=== PATIENT | male | born 1965 | race Caucasian/White ===

== ENCOUNTER 2019-04-12 21:33 | Emergency (ER) | payer BC, SELFPAY ==
[2019-04-12 21:39] VITALS: BP 134/74; PULSE 80; RESP 16; TEMP 36.8; O2SAT 97
[2019-04-12 21:43] VITALS: RESP 16
--- NOTE | 2019-04-12 21:59 | ED.GENADUL_ITS ---
Discharge Plan Disposition Patient Disposition: HOME Condition: Good Discharge Details Chief Complaint: Anxiety Clinical Impression: Insomnia Primary Care Provider: Anaid Johnson ED Provider: Rufus Olson Home Meds and New Rx's Prescriptions: New zolpidem [Ambien] 10 mg tablet 10 mg PO QHS PRN (Reason: insomnia) Qty: 7 RF: 0 Discharge Instructions Instructions: Insomnia (ED) Additional Instructions: follow up with your primary care provider's office within a week try to avoid marijuana or alcohol and other drugs as these can disrupt sleep Medical Decision Making 53 yo male who has a hx of insomnia in the past comes in with complaint of can't sleep. He states yesterday he ate a marijuana brownie which is out of the normal for him, doesn't usually use alcohol or drugs. He was unable to sleep last night and still couldn't tonight despite diphenydramine, felt anxious so came here. He is in no distress on exam, does appear tired but no focal motor deficits. He denies si/hi and has no passing thoughts to suggest thoughts of wanting to harm himself. Has normal neuro exam and no acute complaints other than he can't sleep so feel he doesn't require acute workup for his complaint. Will provide zolpidem and have him f/u with pcp for continued management Differential Diagnosis insomnia, anxiety HPI General Mode of arrival: ambulatory . Date/Time Provider Initiated Documentation: 04/12/19 21:34 . Limitations to Documentation: no limitations . Information obtained by: patient . History of Present Illness 53 year old M presents to the emergency department with the chief complaint of can't sleep, described as moderate, and it has been constant. No relieving factors improve symptom(s), No exacerbating factors reported . Patient did receive the following treatments prior to arrival, none Related Data Home Medications Medication Instructions Recorded Confirmed zolpidem [Ambien] 10 mg PO QHS PRN #7 tab 04/12/19 Previous Rx's Medication Instructions Recorded zolpidem [Ambien] 10 mg PO QHS PRN #7 tab 04/12/19 Allergies Allergy/AdvReac Type Severity Reaction Status Date / Time No Known Allergies Allergy Unverified 04/12/19 21:46 General Stated Complaint: Anxiety MIC: 4 Review of Systems Review of Systems All systems reviewed & are unremarkable except as noted in HPI and below Constitutional Denies chills, Denies fever(s) and Denies weakness Cardiovascular Denies chest pain and Denies dyspnea Respiratory Denies cough and Denies dyspnea Gastrointestinal Denies abdominal pain, Denies nausea and Denies vomiting Musculoskeletal Denies joint swelling Neurologic Denies weakness PFSH Social History Smoking/Tobacco Use Status: Never Drug use: Never Do you feel safe at home: Yes Do you feel safe in your relationship?: Yes Exam Const General: no acute distress Orientation: alert HENMT Head: normal to inspection Ears: external ears normal General nose exam: external nose normal Mouth: moist mucous membranes Eyes General: appearance normal, both eyes and all related structures Neck Neck: normal visual inspection Resp Effort & Inspection: normal respiratory effort and able to speak in complete sentences Cardio Rate: regular rate Skin General skin exam: no rashes or lesions noted Neuro General: alert and oriented x3 Extrem General: normal to inspection Psych Mental Status: mental status grossly normal Course Vital Signs Temperature 36.8 C 04/12/19 21:39 Pulse 80 04/12/19 21:39 Respiratory Rate 16 04/12/19 21:39 Blood Pressure 134/74 04/12/19 21:39 Pulse Oximetry 97 04/12/19 21:39 Temperature 36.8 C 04/12/19 21:39 Temperature Source Temporal Artery Scan 04/12/19 21:39 Pulse 80 04/12/19 21:39 Respiratory Rate 16 04/12/19 21:43 Respiratory Effort 04/12/19 21:43 Respiratory Depth Normal 04/12/19 21:43 Respiratory Pattern Normal 04/12/19 21:43 Blood Pressure 134/74 04/12/19 21:39 Pulse Oximetry 97 04/12/19 21:39 Oxygen Delivery Method Room Air 04/12/19 21:39 Oxygen Flow Rate 0 04/12/19 21:39 Pain Level 0 04/12/19 21:39
[2019-04-12] MEDS: Zolpidem 10 MG TAB PO (22:13)
--- NOTE | 2019-04-13 07:00 | NUR.NOTE ---
Referral faxed to [facility] Dr Johnson.Nursing Note:
== END 2019-04-12 22:15 | disposition home or self-care (01) ==
LOC: ER 22:14
PROVIDERS: Emergency Provider Emergency Medicine; PCP Family Medicine
DX: G47.00 Insomnia, unspecified (principal); T40.7X5A Adverse effect of cannabis (derivatives), initial encounter
CPT/HCPCS: 99283

== ENCOUNTER 2021-05-12 15:35 | Outpatient (REF) | payer BC, SELFPAY ==
[2021-05-12 22:04] LABS: ALT 74 U/L (16-63); AST 107 U/L (15-37); Albumin 3.8 g/dL (3.4-5.0); Alkaline Phosphatase 76 U/L (46-116); Anion Gap 4.4 mmol/L (3-11); BUN 9 mg/dL (7-18); CO2 32.6 mmol/L (21.0-32.0); Calcium 8.9 mg/dL (8.5-10.1); Calculated LDL 88 mg/dL (<100); Chloride 100 mmol/L (98-107); Cholesterol 143 mg/dL (<200); Glucose 109 mg/dL (74-106); HDL Cholesterol 43 mg/dL (40-60); Potassium 4.1 mmol/L (3.5-5.1); Sodium 137 mmol/L (136-145); Total Protein 8.4 g/dL (6.4-8.2); Triglyceride 61 mg/dL (<150)
[2021-05-12 22:34] LABS: FREE T4 0.95 ng/dL (0.76-1.46)
== END 2021-05-12 15:36 | disposition home or self-care (01) ==
LOC: NCHCN 15:35
PROVIDERS: PCP Family Medicine; Visit Provider Family Medicine
DX: G47.00 Insomnia, unspecified (principal); E03.9 Hypothyroidism, unspecified
CPT/HCPCS: 80053; 80061; 84439; 84443

== ENCOUNTER 2021-12-15 15:09 | Outpatient (REF) | payer BC, SELFPAY ==
[2021-12-15 14:16] LABS: ALT 27 U/L (16-63); AST 47 U/L (15-37); Albumin 3.5 g/dL (3.4-5.0); Alkaline Phosphatase 77 U/L (46-116); Anion Gap 6.9 mmol/L (3-11); BUN 7 mg/dL (7-18); Bilirubin, Total 0.8 mg/dL (0.2-1.0); CO2 30.1 mmol/L (21.0-32.0); Calcium 9.1 mg/dL (8.5-10.1); Chloride 100 mmol/L (98-107); Glucose 93 mg/dL (74-106); Potassium 3.9 mmol/L (3.5-5.1); Sodium 137 mmol/L (136-145)
[2021-12-15 15:28] LABS: Abs Immature Grans 0.01 10^3/uL (0.0-0.06); Absolute Basophil Count 0.02 10^3/uL (0.0-0.2); Absolute Eosinophil Count 0.13 10^3/uL (0.0-0.7); Absolute Lymphocyte Count 2.52 10^3/uL (1.2-3.4); Absolute Monocyte Count 0.43 10^3/uL (0.1-0.8); Absolute Neutrophil Count 1.91 10^3/uL (1.2-6.7); Basophils % 0.4; Eosinophils % 2.6; HCT 30.9 % (40.0-50.0); HGB 10.7 g/dL (13.5-17.5); Immature Grans % 0.2; Lymphocytes % 50.2; MCH 32.2 pg (27.0-33.0); MCHC 34.6 % (32.0-36.0); MCV 93 fL (80-95); MPV 10.2 fL (8.0-11.0); Monocytes % 8.6; Platelet Count 245 10^3/uL (130-400); RBC 3.32 10^6/uL (4.36-5.78); RDW 15.7 % (11.8-14.1); RDW-SD 45.5 fL; WBC 5.02 10^3/uL (4.4-10.8)
== END 2021-12-15 15:10 | disposition home or self-care (01) ==
LOC: NCHCN 15:09
PROVIDERS: PCP Family Medicine; Visit Provider Family Medicine
DX: R22.32 Localized swelling, mass and lump, left upper limb (principal)
CPT/HCPCS: 80053; 85025

== ENCOUNTER 2021-12-22 10:49 | Outpatient (CLI) | payer BC, SELFPAY ==
[2021-12-22 11:08] LABS: Source Nasal/Nares
[2021-12-22 13:14] LABS: COVID-19 PCR Negative (Negative)
== END 2021-12-22 10:50 | disposition home or self-care (01) ==
LOC: LBO 10:51
PROVIDERS: PCP Family Medicine; Visit Provider Surgery
DX: Z20.822 Contact with and (suspected) exposure to COVID-19 (principal); Z01.818 Encounter for other preprocedural examination
CPT/HCPCS: 87635

== ENCOUNTER 2021-12-25 06:10 | Day surgery (SDC) | payer BC, SELFPAY ==
--- NOTE | 2021-12-25 06:22 | W.PM.OP ---
Date of service: 12/25/21 Operative Note Operative Note DATE OF PROCEDURE: 12/25/21 PRE-OP DIAGNOSIS: Lymphadenopathy POST-OP DIAGNOSIS: same PROCEDURE: Excisional biopsy of left neck lymphnodes SURGEON: Annette Wiggins Refer to Anesthesia Record PATHOLOGY: other (lymphnodes) COMPLICATIONS: None Patient was transported to: same day Patient's condition: stable Indications: Mr. Chapin is a pleasant 56 year old male who is here with 1 month of lymphadenopathy of the left axilla, left cervical area and left supraclavicular area.? We reviewed the differential.? We discussed doing an excisional biopsy to look malignancy vs infection.? I do suspect that he either has lymphoma or he has another cancer (lung) with mets.? I described the surgery and the risks and benefits. We will add him on for Saturday.? Spoke to Dr. Denton so he is aware. Risks, benefits, complications were reviewed with the patient.? Complications include but are not limited to bleeding, infection, injury to adjacent structures, wound dehiscence and adverse reaction to the medications.? Questions were entertained and answered to his satisfaction and he wished to proceed.? No guarantees were given or implied.? Because all be working on his neck I will test him for COVID so he can be sedated plus minus LMA. Excisional lymph node biopsy of left neck Procedure Description: After informed consent was obtained the patient was taken to the procedure room and placed in a supine position. Monitors were applied and a timeout was done. The patient's name, date of , allergies to medications, procedure to be done and site were reviewed. Fire risk was assessed. Next the patient was sedated. Once sedated and comfortable the patient's neck on the left side and shoulder was prepped and draped in a sterile surgical fashion. Lymph nodes were palpated in the supraclavicular area. Quarter percent bupivacaine was then injected into the dermis and subcutaneous tissue. An incision was made with a 15 blade. Dissection was then done bluntly with hemostats down to the scalene muscle. The hemostat was placed underneath the scalene muscle and using vascular clips the muscle was on 2 sides and transected in between the clips with scissors. This allowed me to identify one of the large lymph nodes. I then gently dissected with my finger around the lymph node. The vasculature again was clipped on either side of the lymph node. Once the vessels were clipped the lymph node was removed without difficulty. The lymph node was removed from the operating field. Next the wound was irrigated. No bleeding was identified. The subcutaneous tissue was then reapproximated with 3-0 Vicryl interrupted sutures. The dermis was closed with 4-0 Vicryl running suture. The skin was cleaned and dried and skin affix was applied. The drapes were removed and the patient was woken up placed on a stretcher and taken back to same-day surgery in stable condition. The patient tolerated the procedure well and there were no immediate complications. Needle and sponge counts were correct at the end of the case. The lymph node was cut longitudinally. The lymph nodes touched on 5 slides. A small piece was placed into RPMI fluid and the rest was placed in formalin.
--- NOTE | 2021-12-25 06:24 | PDOC.DSDIS_ITS ---
Discharge Plan Disposition Patient Disposition: HOME Condition: Good Discharge Details Reason For Visit: Lymphadenopathy Attending Provider: Annette Wiggins Primary Care Provider: Anaid Jhonson Home Meds and New Rx's Prescriptions: Continued multivitamin Tablet 1 tab PO DAILY 0RF Discharge Instructions Additional Instructions: Activity at Home after surgery: 1. As tolerated Diet, Nutrition, & wound healin. As tolerated Pain Medications: 1. Tylenol 650mg every 6 hours as needed and Ibuprofen 600 mg every 6 hours as needed. You may alternate between the 2 medications every 3 hours For Constipation: 1. Take Milk of Magnesia or MiraLax as needed for constipation Other: 1. You may shower daily. Do not scrub the incisions 2. Do not soak the incisions for 1 week 3. You may alternate ice and heat as needed for pain and swelling Wound Care: 1. Keep the incisions clean and dry Please call our office if you develop: 1. Fevers >101.5 2. Nausea or Vomiting 3. Worsening pain 4. Redness and thick discharge from the wounds If after hours please call the Hospital at and ask to speak to the on-call surgeon Referrals: Annette Wiggins MD [ [facility] STAFF PHYSICIAN] - 01/02/22 10:00 am Activity:: Activity as Tolerated Diet:: As Tolerated Discharge Orders Discharge Orders: Discharge Order (Routine); Ordered 12/25/21 Ordered By: Annette Wiggins
[2021-12-25 06:32] VITALS: BP 118/76; PULSE 86; RESP 18; TEMP 36.5; O2SAT 99
[2021-12-25] MEDS: Lactated Ringers 1,000 ML 80 ML IV (07:02)
--- NOTE | 2021-12-25 07:05 | ANES.PREOP_ITS ---
General Info Date of Service Date Performed: 12/25/21 Height: 5 ft 9 in Weight: 77.2 kg Body Mass Index (BMI): 25.1 Surgical Procedure: Operation Date: 12/25/21 07:40 Proposed Procedure Side Surgeon p Excisional Biopsy Lymph Node Left Annette Wiggins MD Meds Allergies and Home Medications Allergies Allergy/AdvReac Type Severity Reaction Status Date / Time No Known Allergies Allergy Unverified 12/22/21 14:06 Home Medication Medication Instructions Recorded multivitamin 1 tab PO DAILY 12/22/21 Current Visit Medications: Current Medications Generic Name Dose Route Start Last Admin Trade Name Freq PRN Reason Stop Dose Admin Ringer's Solution 1,000 mls @ 80 mls/hr 12/25/21 06:00 12/25/21 07:02 IV 01/21/22 23:59 80 mls/hr INFUSION YURI Administration Ondansetron HCl 4 mg/ Sodium 52 mls @ 200 mls/hr 12/25/21 06:26 Chloride IVPB Q6H PRN PRN IV Miscellaneous Supplies 1 each 12/25/21 06:00 Iv Access IV 01/21/22 23:59 DIRECTED YURI Sodium Chloride 0 ml 12/25/21 06:00 Normal Saline Flush 10 Ml Syr IV 01/21/22 23:59 PRN PRN Sodium Chloride 0 ml 12/25/21 06:00 Normal Saline 10 Ml Vial IJ 01/21/22 23:59 DIRECTED PRN Sterile Water 0 ml 12/25/21 06:00 Water,Injection,Sterile 10 Ml Vial IJ 01/21/22 23:59 DIRECTED PRN Tramadol HCl 50 mg 12/25/21 06:26 Tramadol 50 Mg Tab PO Q6H PRN PRN Pain PFSH Active Problems Active Problems: Problem Status Onset Code Mass of left axilla R22.32 Lymphadenopathy, generalized R59.1 Medical History Medical History Anxiety Flat feet History of shingles 2 years ago Hx of fracture of ankle bilateral reported by patient Insomnia Schizoaffective disorder Surgical History Surgical History (Updated 12/25/21 @ 06:41 by Jillian Fields) History of open reduction and internal fixation (ORIF) procedure pt. thinks it was his L ankle Tobacco Smoking/Tobacco Use Status: Former Tobacco Use Alcohol Alcohol Intake: never Substance Use Substance use: Never Substance use type: does not use Details: t-1: wine, 6 oz Vital Signs and Lab Results Vital Signs Most Recent Vital Signs in EMR: Most Recent Vital Signs Temp Pulse Resp BP Pulse Ox 36.5 C 86 18 118/76 99 12/25/21 06:32 12/25/21 06:32 12/25/21 06:32 12/25/21 06:32 12/25/21 06:32 Lab Results Blood Type / Crossmatch: No Data to Display Complete Blood Count: White Blood Count 5.02 10^3/uL (4.4-10.8) 12/15/21 10:35 12/15/21 Red Blood Count 3.32 10^6/uL (4.36-5.78) L 12/15/21 10:35 12/15/21 Hemoglobin 10.7 g/dL (13.5-17.5) L 12/15/21 10:35 12/15/21 Hematocrit 30.9 % (40.0-50.0) L 12/15/21 10:35 12/15/21 Platelet Count 245 10^3/uL (130-400) 12/15/21 10:35 12/15/21 Complete Metabolic Panel: 2 Sodium Level 137 mmol/L (136-145) 12/15/21 10:35 12/15/21 Potassium Level 3.9 mmol/L (3.5-5.1) 12/15/21 10:35 12/15/21 Chloride Level 100 mmol/L (98-107) 12/15/21 10:35 12/15/21 Carbon Dioxide Level 30.1 mmol/L (21.0-32.0) 12/15/21 10:35 12/15/21 Blood Urea Nitrogen 7 mg/dL (7-18) 12/15/21 10:35 12/15/21 Creatinine 1.0 mg/dL (0.70-1.30) 12/15/21 10:35 12/15/21 Estimated GFR/1.73 m2 >= 60.00 (mL/min/1.73m2) 12/15/21 10:35 12/15/21 Calcium Level 9.1 mg/dL (8.5-10.1) 12/15/21 10:35 12/15/21 Albumin 3.5 g/dL (3.4-5.0) 12/15/21 10:35 12/15/21 Glucose Level 93 mg/dL (74-106) 12/15/21 10:35 12/15/21 Liver Function Panel: Alanine Aminotransferase (ALT/SGPT) 27 U/L (16-63) 12/15/21 10:35 12/15/21 Aspartate Amino Transf (AST/SGOT) 47 U/L (15-37) H 12/15/21 10:35 12/15/21 Coagulation Panel: No Data to Display Cardiac Panel: No Data to Display Arterial Blood Gas: No Data to Display Venous Blood Gas: No Data to Display Pancreas Panel: No Data to Display Thyroid Panel: No Data to Display Infectious Disease: Coronavirus (COVID-19)(PCR) Negative (Negative) 12/22/21 10:24 12/22/21 Coronavirus 2019 Source Nasal/Nares 12/22/21 10:24 12/22/21 Blood Cultures: No Data to Display Toxicology Panel: No Data to Display Anesthesia Assessment and Plan Anesthesia History Personal History: No History of Anesthesia Complications Family History: No Family History of Anesthesia Complications Exercise Tolerance Exercise Tolerance: Metabolic Equivalents>4 Pertinent Negatives Pertinent Negatives: No Symptoms of GERD, No Major Cardiovascular Symptoms or Complaints, No Major Pulmonary Symptoms or Complaints and No History of CVA/TIA Cardiac & Pulmonary Exam Cardiac Exam: Normal S1/S2 Heart Sounds Pulmonary Exam: Clear Bilateral Breath Sounds Implantable Cardiac Device Does patient have a Pacemaker or an ICD?: No Airway Exam Known Difficult Airway: No Mallampati Class: 1 Mouth Opening: Normal (> 3cm) Thyromental Distance: Greater than 3 cm Facial Hair: Full Frost Neck Range of Motion: Full ROM Neck Circumference: Normal Teeth Condition: Normal Dentition ASA Classification ASA Score: ASA 2 Emergency Case?: No NPO Status NPO Status: NPO Clears >2 hours, Solids >8 hours Anesthesia Plan Resuscitation Status: Full Code Anesthesia Technique: General Anesthesia Airway Planned: Natural Airway Monitors Used: Standard Monitors
[2021-12-25 07:10] VITALS: BMI 25.1
--- NOTE | 2021-12-25 07:58 | LYM_PTH ---
PATIENT: Billy Chapin LOC: [facility] U#:[id number] AGE/SX: 56/M ROOM: RE12/25/[address]: Annette Wiggins MD : 1965 BED: DIS: 12/25/2021 SPEC #: [id number] RECD: 12/25/21 12:43 STATUS: CRISTIANE REQ #: [id number] JULIAN: 12/25/21 07:[address]: Annette Wiggins DEPT: Surgical Specimen RECD BY: Shauna Mclaughlin ENTERED: 12/25/21 12:45 SP TYPE: LYM OTHR DR: Anaid Johnson Tissues: 1 - LYMPH NODE BIOPSY 2 - FLOW CYTOMETRY NODE/TISSUE Procedures: GROSS AND MICRO LEVEL 4 IMMUNOPEROXIDASE STAIN Single Probe In Situ Hybridization MIB-1 IHC Semi Quantative % B-Cell Lymphoma, FISH, Tissue BLYM, Additional Probe MYC IHC Stain FLOW CYTOMETRY LYMPHOMA PNL Comments: [id number] (FLOW CYTOMETRY - [id number]) (CYTOGENETICS - [id number] INSUFFIENT FOR ANALYSIS)
[2021-12-25 08:11] VITALS: BP 118/77; PULSE 80; RESP 14; TEMP 36.7; O2SAT 98
--- NOTE | 2021-12-25 08:13 | W.ANESPOSTOP ---
Postoperative Evaluation Date, Time and Location Date Performed: 12/25/21 Time Performed: 08:14 Patient Location: Day Surgery Unit Vital Signs Most Recent Imported Vital Signs: Most Recent Vital Signs Temp Pulse Resp BP Pulse Ox 36.5 C 86 18 118/76 99 12/25/21 06:32 12/25/21 06:32 12/25/21 06:32 12/25/21 06:32 12/25/21 06:32 Most Recent Manually Entered Vital Signs: Adult Blood Pressure: 118/77 Heart Rate: 81 Respirations: 10 Oxygen Saturation (%): 97 Temperature (C): 36.3 C Pain Score (0-10 Scale): 0 Pain Score Most Recent Pain Score: Most Recent Pain Score Pain Level 0 12/25/21 06:32 Assessment Mental Status: Awake (Alert & Oriented to Patient Baseline) Airway and Respiratory Function: Patent airway with normal (patient baseline) respiratory exam Cardiovascular Function: Hemodynamically Stable Hydration Status: Adequately Hydrated Nausea & Vomiting: No Nausea or Vomiting Pain: Pt. Denies Any Pain Peripheral Nerve Block: Patient did not receive a nerve block Teaching Patient Teaching: Discussed Safe Use of Pain Medication Given Recent Anesthesia
[2021-12-25 08:15] VITALS: BP 118/77; PULSE 81; RESP 10; TEMPC 36.3; O2SAT 97
[2021-12-25 08:45] VITALS: BP 126/83; PULSE 89; RESP 16; TEMP 36.4; O2SAT 97
== END 2021-12-25 09:15 | disposition home or self-care (01) ==
PROVIDERS: PCP Family Medicine; Visit Provider Surgery
PROC: (CPT 38510; principal; 2021-12-25 07:30)
DX: R59.1 Generalized enlarged lymph nodes (principal); F25.9 Schizoaffective disorder, unspecified; F41.9 Anxiety disorder, unspecified; Z87.891 Personal history of nicotine dependence; C85.10 Unspecified B-cell lymphoma, unspecified site
CPT/HCPCS: 38510; 88305; 88341; 88360; 88368; 88377; 88184; 88185; 88361; J2250

== ENCOUNTER 2022-01-17 18:51 | Outpatient (REF) | payer BC, SELFPAY ==
[2022-01-17 15:27] LABS: Abs Immature Grans 0.01 10^3/uL (0.0-0.06); Absolute Basophil Count 0.01 10^3/uL (0.0-0.2); Absolute Lymphocyte Count 0.64 10^3/uL (1.2-3.4); Absolute Monocyte Count 0.08 10^3/uL (0.1-0.8); Absolute Neutrophil Count 0.61 10^3/uL (1.2-6.7); Basophils % 0.7; HCT 21.9 % (40.0-50.0); HGB 9.4 g/dL (13.5-17.5); Immature Grans % 0.7; Lymphocytes % 47.4; MCH 38.5 pg (27.0-33.0); MCHC 42.9 % (32.0-36.0); MCV 90 fL (80-95); MPV 10.5 fL (8.0-11.0); Monocytes % 5.9; Neutrophils % 45.3; Platelet Count 151 10^3/uL (130-400); RBC 2.44 10^6/uL (4.36-5.78); RDW 16.3 % (11.8-14.1); RDW-SD 45.1 fL
[2022-01-17 16:16] LABS: Bilirubin Negative (Negative); Blood Small (Negative); Clarity Clear (Clear); Glucose Negative (Negative); Ketones Negative (Negative); Leukocyte Esterase Negative (Negative); Nitrite Negative (Negative); Specific Gravity 1.015 (1.005-1.025); Urobilinogen 0.2 EU/dL (Up TO 0.2)
[2022-01-17 16:25] LABS: Bacteria Negative HPF (Negative); C & S Indicated? No; Crystals Negative HPF (Negative); Epithelial Cells Rare HPF (Negative); Mucus Negative (Negative); RBC 0-2 HPF (0-2); WBC 0-2 HPF (0-5)
[2022-01-17 16:31] LABS: ALT 58 U/L (16-63); AST 135 U/L (15-37); Albumin 3.1 g/dL (3.4-5.0); Alkaline Phosphatase 63 U/L (46-116); Anion Gap 7.6 mmol/L (3-11); BUN 7 mg/dL (7-18); Bilirubin, Total 0.7 mg/dL (0.2-1.0); CO2 26.4 mmol/L (21.0-32.0); CREATININE 1.1 mg/dL (0.70-1.30); Calcium 8.3 mg/dL (8.5-10.1); Chloride 95 mmol/L (98-107); Glucose 115 mg/dL (74-106); Potassium 4.1 mmol/L (3.5-5.1); Sodium 129 mmol/L (136-145); Total Protein 8.1 g/dL (6.4-8.2)
[2022-01-18 09:30] LABS: WBC 1.35 10^3/uL (4.4-10.8)
== END 2022-01-17 18:52 | disposition home or self-care (01) ==
LOC: NCHCN 18:51
PROVIDERS: PCP Family Medicine; Visit Provider Family Medicine
DX: R59.0 Localized enlarged lymph nodes (principal); R39.89 Other symptoms and signs involving the genitourinary system
CPT/HCPCS: 80053; 81003; 81015; 85025

== ENCOUNTER 2022-04-05 03:44 | Outpatient (CLI) | payer BC, SELFPAY ==
[2022-04-05 08:42] LABS: Abs Immature Grans 0.11 10^3/uL (0.0-0.06); Absolute Basophil Count 0.02 10^3/uL (0.0-0.2); Absolute Eosinophil Count 0.01 10^3/uL (0.0-0.7); Absolute Neutrophil Count 3.23 10^3/uL (1.2-6.7); Basophils % 0.5; Eosinophils % 0.2; HGB 9.5 g/dL (13.5-17.5); Immature Grans % 2.6; Lymphocytes % 7.2; MCH 29.3 pg (27.0-33.0); MCHC 32.8 % (32.0-36.0); MCV 90 fL (80-95); MPV 9.2 fL (8.0-11.0); Neutrophils % 77.5; Platelet Count 172 10^3/uL (130-400); RBC 3.24 10^6/uL (4.36-5.78); RDW-SD 72.9 fL; WBC 4.17 10^3/uL (4.4-10.8)
[2022-04-05 08:53] LABS: Anisocytosis 2+; Diff Comment Diff Reviewed; Hypochromasia 1+; Polychromasia Present
[2022-04-05 08:54] LABS: Poikilocytes 1+
[2022-04-05 09:07] LABS: ALT 31 U/L (16-63); AST 33 U/L (15-37); Albumin 3.5 g/dL (3.4-5.0); Alkaline Phosphatase 72 U/L (46-116); Anion Gap 5.4 mmol/L (3-11); BUN 9 mg/dL (7-18); Bilirubin, Total 0.5 mg/dL (0.2-1.0); CO2 30.6 mmol/L (21.0-32.0); Calcium 8.6 mg/dL (8.5-10.1); Chloride 100 mmol/L (98-107); Glucose 124 mg/dL (74-106); LDH 252 U/L (85-227); Potassium 3.5 mmol/L (3.5-5.1); Sodium 136 mmol/L (136-145); Total Protein 7.7 g/dL (6.4-8.2)
== END 2022-04-05 03:45 | disposition home or self-care (01) ==
LOC: LBO 03:44
PROVIDERS: PCP Family Medicine; Visit Provider Internal Medicine Hematology & Oncology
DX: C85.80 Other specified types of non-Hodgkin lymphoma, unspecified site (principal)
CPT/HCPCS: 36415; 80053; 83615; 85025

== ENCOUNTER 2022-04-05 10:19 | Emergency (ER) | payer BC, SELFPAY ==
[2022-04-05] VITALS (30 sets, daily range): BP systolic 102–126; BP diastolic 58–76; PULSE 75–107; RESP 10–27; TEMP 36.8–39.3; O2SAT 93–100
--- NOTE | 2022-04-05 10:30 | DI.RAD_ITS ---
Exam(s) XR CHEST 2V PA LATERAL EXAM: XR CHEST 2V PA LATERAL CLINICAL HISTORY: Fever TECHNIQUE: 2D digital imaging was performed. COMPARISON: CT CT CHEST/ABD/PEL WO from 01/05/2022 FINDINGS: MEDIASTINUM: Normal. HEART: Normal. PULMONARY VASCULATURE: Normal. LUNGS: Clear. PLEURAL SPACE: No pleural effusion or pneumothorax. BONE:Unremarkable for age. Other: A port is noted over the right chest with the tip in the right atrium. Surgical clips are not ed overlying the left lung apex. IMPRESSION: No acute abnormality. DATA REPOSITORY: RADIATION DOSE DELIVERED:
[2022-04-05 12:30] LABS: Lactate 0.5 mmol/L (0.6-1.4)
[2022-04-05 12:31] LABS: Abs Immature Grans 0.09 10^3/uL (0.0-0.06); Absolute Basophil Count 0.01 10^3/uL (0.0-0.2); Absolute Lymphocyte Count 0.31 10^3/uL (1.2-3.4); Absolute Monocyte Count 0.63 10^3/uL (0.1-0.8); Absolute Neutrophil Count 3.72 10^3/uL (1.2-6.7); Basophils % 0.2; HCT 26.1 % (40.0-50.0); HGB 8.7 g/dL (13.5-17.5); Immature Grans % 1.9; Lymphocytes % 6.5; MCH 29.3 pg (27.0-33.0); MCHC 33.3 % (32.0-36.0); MCV 88 fL (80-95); MPV 9.8 fL (8.0-11.0); Monocytes % 13.2; Neutrophils % 78.2; Platelet Count 155 10^3/uL (130-400); RBC 2.97 10^6/uL (4.36-5.78); RDW 22.7 % (11.8-14.1); RDW-SD 70.6 fL; WBC 4.76 10^3/uL (4.4-10.8)
[2022-04-05 12:35] LABS: ESR 11 mm/hr (0-20)
[2022-04-05] MEDS: ACETAMINOPHEN 1,000 MG/100 ML BTL 400 MG IVPB (12:35)
[2022-04-05] MEDS: Normal Saline 1,000 ML 1000 ML IV (12:35)
[2022-04-05 12:37] LABS: Diff Comment RBC Morph Reviewed
[2022-04-05 12:47] LABS: Anisocytosis 2+; Polychromasia Present
[2022-04-05 12:50] LABS: ALT 31 U/L (16-63); AST 30 U/L (15-37); Albumin 3.5 g/dL (3.4-5.0); Alkaline Phosphatase 67 U/L (46-116); Anion Gap 7.4 mmol/L (3-11); BUN 11 mg/dL (7-18); Bilirubin, Total 0.5 mg/dL (0.2-1.0); C-Reactive Protein 0.82 mg/dL (0.0-0.3); CO2 28.6 mmol/L (21.0-32.0); CREATININE 0.8 mg/dL (0.70-1.30); Calcium 8.6 mg/dL (8.5-10.1); Chloride 99 mmol/L (98-107); Glucose 104 mg/dL (74-106); Potassium 3.8 mmol/L (3.5-5.1); Sodium 135 mmol/L (136-145); Total Protein 7.5 g/dL (6.4-8.2)
[2022-04-05 12:58] LABS: Bilirubin Negative (Negative); Blood Negative (Negative); Clarity Clear (Clear); Glucose Negative (Negative); Ketones Negative (Negative); Leukocyte Esterase Negative (Negative); Nitrite Negative (Negative); Specific Gravity 1.025 (1.005-1.025); Urobilinogen 0.2 EU/dL (Up TO 0.2)
--- NOTE | 2022-04-05 13:00 | W.ED.GENAD ---
Discharge Plan Disposition Patient Disposition: HOME Condition: Stable Discharge Details Clinical Impression: COVID Primary Care Provider: Anaid Johnson ED Provider: Nelson Huizar Home Meds and New Rx's Prescriptions: No Action multivitamin Tablet 1 tab PO DAILY Discharge Instructions Instructions: COVID-19 (Coronavirus Disease 2019) (ED) Additional Instructions: Please continue to stay well-hydrated and you may take [id number] acetaminophen or ibuprofen as needed for fever chills or body aches which is common with COVID. If you are able to have a family member or friend picker feeder a pulse oximeter at the pharmacy it is recommended to monitor your oxygen which should remain above 90%. If your oxygen is persistently lower than that or you develop chest pain or shortness of breath or any significant worsening of symptoms you are concerned about please return to the emergency department immediately for reassessment. You will be done with your quarantine on April 14 as long as you have improving symptoms and you are fever free. Also feel free to contact the cancer center and inform them that you are COVID-positive so they can arrange appropriate chemotherapy appointments as directed by your oncologist. He did receive monoclonal antibodies and the current recommendation is to receive any COVID vaccines for 90 days after this medication. After this 90 period please discuss immunization and vaccination with your primary care provider and oncologist. Referrals: Anaid Johnson [Primary Care Provider] - (As needed for reassessment) Discharge Data Discharge Date/Time-TO BE ENTERED AT DEPARTURE: 04/05/22 15:10 Medical Decision Making Patient presenting to the emergency department for chief complaint of cough, fever chills, and body aches. Patient had initially presented to the cancer center this morning but due to patient's fever and chills not feeling well patient was referred to the emergency department. Patient does have B-cell lymphoma and is currently receiving chemo. Patient is unvaccinated for COVID but denies any known contact to ill individuals. Physical exam is unremarkable except for noted dry cough. We will plan on checking patient's labs including COVID flu RSV due to high risk individual will give patient fluids and acetaminophen pending results. Reviewed patient's labs which show a anemia of 8.7 which is slightly lower than baseline but not drastically reduced, lactate of 0.5, CMP unremarkable except for slightly low sodium at 135, CRP slightly elevated at 0.8, urine shows protein but no other signs of infection. Patient is positive for COVID negative for influenza and RSV. Discussed with patient risk versus benefit of monoclonal antibodies as I am concerned that pack Paxlovid may interact or interfere with patient's chemotherapy. Discussed this with pharmacist who also agrees that monoclonal antibodies would be preferred treatment. Patient was agreeable to receiving this EUA medication and stated no questions after discussion. Patient reassessed after medication and stated improvement and patient has less tachycardia and reduction of fever. Discussed conservative management along with monitoring oxygen with return and follow-up precautions. After discussion of diagnosis and plan of care patient has no further needs, questions, or concerns and states clear understanding to return to the emergency department for any worsening symptoms. This documentation was generated using [email or web address] dictation system, please disregard any oddities of phrase or misspellings. Imaging Data Radiologic Study: Attestation: I personally reviewed and interpreted this imaging study as follows: Imaging: X-Ray Radiologist's impression: FINDINGS: MEDIASTINUM: Normal. HEART: Normal. PULMONARY VASCULATURE: Normal. LUNGS: Clear. PLEURAL SPACE: No pleural effusion or pneumothorax. BONE:Unremarkable for age. Other: A port is noted over the right chest with the tip in the right atrium. Surgical clips are noted overlying the left lung apex. IMPRESSION: No acute abnormality. Lab Data Lab results reviewed: Yes I reviewed the patient's lab results. HPI General Mode of arrival: ambulatory. Date/Time Provider Initiated Documentation: 04/05/22 10:29. Limitations to Documentation: no limitations. Information obtained by: patient, RN/MD and RN notes reviewed. History of Present Illness 56 year old M presents to the emergency department with the chief complaint of cough fever, described as mild, with intensity rated at 4. Quality is described as aching (genral body), Patient reports no radiation. Patient started experiencing this day(s) (2) and it has been constant. No relieving factors improve symptom(s), No exacerbating factors reported . Patient notes fever/chills, loss of appetite and malaise; denies chest pain. Patient did receive the following treatments prior to arrival, none Related Data Home Medications Medication Instructions Recorded Confirmed multivitamin 1 tab PO DAILY 12/22/21 04/05/22 Allergies Allergy/AdvReac Type Severity Reaction Status Date / Time No Known Allergies Allergy Unverified 04/05/22 10:34 General Stated Complaint: GenMedical MIC: 3 Review of Systems Constitutional Constitutional: Reports chills, Reports fatigue, Reports fever(s), Denies headache(s), Reports lethargy, Reports malaise, Reports night sweats and Reports poor appetite ENT Ears, Nose, Mouth, and Throat: Denies headache(s), Denies nasal congestion, Denies neck pain, Reports sore throat, Denies throat swelling and Denies tongue swelling Cardiovascular Cardiovascular: Denies chest pain and Denies dyspnea Respiratory Respiratory: Reports cough (dry), Denies dyspnea and Denies wheezing Gastrointestinal Gastrointestinal: Denies abdominal pain, Denies diarrhea, Denies nausea and Denies vomiting Genitourinary Genitourinary: Denies dysuria Musculoskeletal Musculoskeletal: Reports myalgias and Denies neck pain Integumentary/Breasts Skin/Breast: Denies rash Neurologic Neurologic: Denies headache(s) Psychiatric Psychiatric: Denies anxiety Endocrine Endocrine: Reports fatigue Hematologic/Lymphatic Hematologic/Lymphatic: Denies easy bleeding Allergic/Immunologic Allergic/Immunologic: Denies throat swelling, Denies tongue swelling and Denies wheezing PFSH All Active Problems COVID (Acute) B-cell lymphoma (Acute) Mass of left axilla (Acute) Lymphadenopathy, generalized (Acute) Medical History Anxiety Flat feet History of shingles 2 years ago Hx of fracture of ankle bilateral reported by patient Insomnia Schizoaffective disorder Surgical History History of open reduction and internal fixation (ORIF) procedure pt. thinks it was his L ankle Social History Smoking/Tobacco Use Status: Former Tobacco Use tobacco type: cigarettes Quit Date: 08/19/96 Smoking risk assessment performed?: Yes Alcohol Intake: never Drug use: Never Substance use type: does not use Details: t-1: wine, 6 oz Do you feel safe at home: Yes Do you feel safe in your relationship?: Yes Exam Const General: cooperative, comfortable and no acute distress Orientation: alert and awake [facility] Head: normal to inspection, normocephalic and atraumatic Ears: hearing grossly normal bilaterally General nose exam: external nose normal Face and sinus: no erythema Mouth: oral mucosae normal, no drooling, no muffled voice and no trismus Throat: posterior oropharynx normal Neck Neck: normal visual inspection, full ROM, no lymphadenopathy, no meningeal signs, trachea midline and supple Resp Effort & Inspection: normal respiratory effort, able to speak in complete sentences and cough Quality of cough: dry Auscultation: clear to auscultation bilaterally Cardio Rate: regular rate Rhythm: regular rhythm Heart Sounds: S1 normal, S2 normal, normal S1 and S2, no click, no gallops, no murmurs and no rubs Skin General skin exam: no rashes or lesions noted and dry skin (warm) Neuro General: patient alert, patient awake, patient oriented x3, gait normal and moves all extremities Cognition: normal cognition Speech: speech normal Course Vital Signs Vital signs: Vital Signs Temperature 38.3 C H 04/05/22 10:29 Pulse 102 H 04/05/22 10:29 Respiratory Rate 16 04/05/22 10:29 Blood Pressure 119/71 04/05/22 10:29 Pulse Oximetry 98 04/05/22 10:29 Temperature 39.3 C H 04/05/22 11:26 Temperature Source Skin 04/05/22 11:26 Pulse 107 H 04/05/22 11:26 Respiratory Rate 16 04/05/22 12:53 Respiratory Effort Non-Labored 04/05/22 12:53 Respiratory Depth Normal 04/05/22 12:53 Respiratory Pattern Normal 04/05/22 12:53 Blood Pressure 114/74 04/05/22 11:26 Blood Pressure Position Sitting 04/05/22 10:29 Pulse Oximetry 96 04/05/22 11:26 Oxygen Delivery Method Room Air 04/05/22 11:26 Oxygen Flow Rate 0 04/05/22 11:26 Pain Level 0 04/05/22 11:26 Lab/Test Results Lab/Test Results: 04/05/22 12:30 Blood Blood Culture - Pending 04/05/22 12:25 Blood Blood Culture - Pending Laboratory Tests Range/Units 04/05/22 04/05/22 04/05/22 12:25 12:25 12:25 WBC (4.4-10.8) 10^3/uL RBC (4.36-5.78) 10^6/uL Hgb (13.5-17.5) g/dL Hct (40.0-50.0) % MCV (80-95) fL MCH (27.0-33.0) pg MCHC (32.0-36.0) % RDW (11.8-14.1) % Plt Count (130-400) 10^3/uL MPV (8.0-11.0) fL Immature Gran % Neutrophils % Lymphocytes % Monocytes % Eosinophils % Basophils % Nucleated RBC % (0.0-0.3) % Absolute Neutrophils (1.2-6.7) 10^3/uL Absolute Lymphocytes (1.2-3.4) 10^3/uL Absolute Monocytes (0.1-0.8) 10^3/uL Absolute Eosinophils (0.0-0.7) 10^3/uL Absolute Basophils (0.0-0.2) 10^3/uL RBC Morphology Polychromasia Anisocytosis ESR (0-20) mm/hr 11 VBG Lactate (0.6-1.4) mmol/L 0.5 L Sodium (136-145) mmol/L 135 L Potassium (3.5-5.1) mmol/L 3.8 Chloride (98-107) mmol/L 99 Carbon Dioxide (21.0-32.0) mmol/L 28.6 Anion Gap (3-11) mmol/L 7.4 BUN (7-18) mg/dL 11 Creatinine (0.70-1.30) mg/dL 0.8 Estimated GFR/1.73 m2 (mL/min/1.73m2) >= 60.00 Glucose (74-106) mg/dL 104 Calcium (8.5-10.1) mg/dL 8.6 Total Bilirubin (0.2-1.0) mg/dL 0.5 AST (15-37) U/L 30 ALT (16-63) U/L 31 Alkaline Phosphatase (46-116) U/L 67 C-Reactive Protein (0.0-0.3) mg/dL 0.82 H Total Protein (6.4-8.2) g/dL 7.5 Albumin (3.4-5.0) g/dL 3.5 Urine Color (Yellow) Urine Clarity (Clear) Urine pH (5-8) Ur Specific [place] (1.005-1.025) Urine Protein (Negative) mg/dL Urine Ketones (Negative) mg/dL Urine Blood (Negative) Urine Nitrite (Negative) Urine Bilirubin (Negative) Urine Urobilinogen (Up TO 0.2) EU/dL Ur Leukocyte Esterase (Negative) Urine Glucose (Negative) mg/dL Range/Units 04/05/22 04/05/22 12:25 12:45 WBC (4.4-10.8) 10^3/uL 4.76 RBC (4.36-5.78) 10^6/uL 2.97 L Hgb (13.5-17.5) g/dL 8.7 L Hct (40.0-50.0) % 26.1 L MCV (80-95) fL 88 MCH (27.0-33.0) pg 29.3 MCHC (32.0-36.0) % 33.3 RDW (11.8-14.1) % 22.7 H Plt Count (130-400) 10^3/uL 155 MPV (8.0-11.0) fL 9.8 Immature Gran % 1.9 Neutrophils % 78.2 Lymphocytes % 6.5 Monocytes % 13.2 Eosinophils % 0.0 Basophils % 0.2 Nucleated RBC % (0.0-0.3) % 0.0 Absolute Neutrophils (1.2-6.7) 10^3/uL 3.72 Absolute Lymphocytes (1.2-3.4) 10^3/uL 0.31 L Absolute Monocytes (0.1-0.8) 10^3/uL 0.63 Absolute Eosinophils (0.0-0.7) 10^3/uL 0.00 Absolute Basophils (0.0-0.2) 10^3/uL 0.01 RBC Morphology See Below Polychromasia Present Anisocytosis 2+ ESR (0-20) mm/hr VBG Lactate (0.6-1.4) mmol/L Sodium (136-145) mmol/L Potassium (3.5-5.1) mmol/L Chloride (98-107) mmol/L Carbon Dioxide (21.0-32.0) mmol/L Anion Gap (3-11) mmol/L BUN (7-18) mg/dL Creatinine (0.70-1.30) mg/dL Estimated GFR/1.73 m2 (mL/min/1.73m2) Glucose (74-106) mg/dL Calcium (8.5-10.1) mg/dL Total Bilirubin (0.2-1.0) mg/dL AST (15-37) U/L ALT (16-63) U/L Alkaline Phosphatase (46-116) U/L C-Reactive Protein (0.0-0.3) mg/dL Total Protein (6.4-8.2) g/dL Albumin (3.4-5.0) g/dL Urine Color (Yellow) Yellow Urine Clarity (Clear) Clear Urine pH (5-8) 6.0 Ur Specific [place] (1.005-1.025) 1.025 Urine Protein (Negative) mg/dL Trace H Urine Ketones (Negative) mg/dL Negative Urine Blood (Negative) Negative Urine Nitrite (Negative) Negative Urine Bilirubin (Negative) Negative Urine Urobilinogen (Up TO 0.2) EU/dL 0.2 Ur Leukocyte Esterase (Negative) Negative Urine Glucose (Negative) mg/dL Negative
[2022-04-05 13:06] LABS: Epithelial Cells Rare HPF (Negative); RBC 0-2 HPF (0-2); WBC 0-2 HPF (0-5)
[2022-04-05 13:07] LABS: Bacteria Negative HPF (Negative); C & S Indicated? No; Casts Negative LPF (Negative); Crystals Negative HPF (Negative); Mucus Negative (Negative)
[2022-04-05 13:31] LABS: COVID-19 PCR Positive (Negative)
[2022-04-05 14:10] LABS: Influenza A PCR Negative (Negative); Influenza B PCR Negative (Negative); RSV PCR Negative (Negative)
[2022-04-05] MEDS: Heparin 500 UNITS/5 ML SYRINGE (15:07)
== END 2022-04-05 15:10 | disposition home or self-care (01) ==
PROVIDERS: Emergency Provider Nurse Practitioner Family; PCP Family Medicine
DX: U07.1 COVID-19 (principal); C83.50 Lymphoblastic (diffuse) lymphoma, unspecified site; Z28.310 Unvaccinated for COVID-19; Z87.891 Personal history of nicotine dependence
CPT/HCPCS: 80053; 85652; 87040; 87637; 96361; 96365; 96375; 99284; Q0222; 71046; 81003; 81015; 83605; 85025; 86140; J0131

== ENCOUNTER 2022-04-19 04:51 | Outpatient (CLI) | payer BC, SELFPAY ==
[2022-04-19 08:06] LABS: Abs Immature Grans 0.01 10^3/uL (0.0-0.06); Absolute Basophil Count 0.01 10^3/uL (0.0-0.2); Absolute Eosinophil Count 0.09 10^3/uL (0.0-0.7); Absolute Lymphocyte Count 0.56 10^3/uL (1.2-3.4); Absolute Monocyte Count 0.51 10^3/uL (0.1-0.8); Absolute Neutrophil Count 2.36 10^3/uL (1.2-6.7); Basophils % 0.3; Eosinophils % 2.5; HCT 29.3 % (40.0-50.0); HGB 9.5 g/dL (13.5-17.5); Immature Grans % 0.3; Lymphocytes % 15.8; MCHC 32.4 % (32.0-36.0); MCV 92 fL (80-95); MPV 9.1 fL (8.0-11.0); Monocytes % 14.4; Neutrophils % 66.7; Platelet Count 234 10^3/uL (130-400); RBC 3.17 10^6/uL (4.36-5.78); RDW 20.9 % (11.8-14.1); WBC 3.54 10^3/uL (4.4-10.8)
[2022-04-19 08:24] LABS: ALT 48 U/L (16-63); AST 28 U/L (15-37); Albumin 3.3 g/dL (3.4-5.0); Alkaline Phosphatase 69 U/L (46-116); Anion Gap 4.5 mmol/L (3-11); BUN 10 mg/dL (7-18); Bilirubin, Total 0.5 mg/dL (0.2-1.0); CO2 31.5 mmol/L (21.0-32.0); CREATININE 0.8 mg/dL (0.70-1.30); Calcium 8.6 mg/dL (8.5-10.1); Chloride 103 mmol/L (98-107); Estimated GFR 103.87 (mL/min/1.73m2); Glucose 89 mg/dL (74-106); LDH 183 U/L (85-227); Potassium 3.9 mmol/L (3.5-5.1); Sodium 139 mmol/L (136-145); Total Protein 7.3 g/dL (6.4-8.2)
== END 2022-04-19 04:52 | disposition home or self-care (01) ==
LOC: LBO 04:52
PROVIDERS: Nurse Practitioner Family; PCP Family Medicine; Visit Provider Internal Medicine Hematology & Oncology
DX: C85.80 Other specified types of non-Hodgkin lymphoma, unspecified site (principal)
CPT/HCPCS: 36415; 80053; 83615; 85025

== ENCOUNTER 2022-05-01 16:20 | Outpatient (CLI) | payer BC, SELFPAY ==
[2022-05-01 10:49] LABS: Abs Immature Grans 0.01 10^3/uL (0.0-0.06); Absolute Basophil Count 0.02 10^3/uL (0.0-0.2); Absolute Eosinophil Count 0.13 10^3/uL (0.0-0.7); Absolute Lymphocyte Count 0.27 10^3/uL (1.2-3.4); Absolute Monocyte Count 0.24 10^3/uL (0.1-0.8); Absolute Neutrophil Count 1.09 10^3/uL (1.2-6.7); Basophils % 1.1; Eosinophils % 7.4; HCT 25.2 % (40.0-50.0); HGB 8.5 g/dL (13.5-17.5); Immature Grans % 0.6; Lymphocytes % 15.3; MCH 30.9 pg (27.0-33.0); MCHC 33.7 % (32.0-36.0); MCV 92 fL (80-95); MPV 8.3 fL (8.0-11.0); Monocytes % 13.6; Platelet Count 181 10^3/uL (130-400); RBC 2.75 10^6/uL (4.36-5.78); RDW 16.7 % (11.8-14.1); RDW-SD 54.9 fL
[2022-05-01 11:07] LABS: WBC 1.76 10^3/uL (4.4-10.8)
== END 2022-05-01 16:21 | disposition home or self-care (01) ==
LOC: LBO 16:21
PROVIDERS: PCP Family Medicine; Visit Provider Nurse Practitioner Family
DX: C85.80 Other specified types of non-Hodgkin lymphoma, unspecified site (principal)
CPT/HCPCS: 36415; 85025

== ENCOUNTER 2022-05-10 03:42 | Outpatient (RCR) | payer BC, SELFPAY ==
[2022-05-10] MEDS: Normal Saline Flush 10 ML SYR IVP (08:48)
[2022-05-10 09:04] LABS: Abs Immature Grans 0.02 10^3/uL (0.0-0.06); Absolute Basophil Count 0.02 10^3/uL (0.0-0.2); Absolute Eosinophil Count 0.15 10^3/uL (0.0-0.7); Absolute Lymphocyte Count 0.53 10^3/uL (1.2-3.4); Absolute Neutrophil Count 1.08 10^3/uL (1.2-6.7); Basophils % 0.8; Eosinophils % 6.3; HCT 31.5 % (40.0-50.0); HGB 10.7 g/dL (13.5-17.5); Immature Grans % 0.8; Lymphocytes % 22.1; MCH 31.6 pg (27.0-33.0); MCV 93 fL (80-95); MPV 8.9 fL (8.0-11.0); Platelet Count 326 10^3/uL (130-400); RBC 3.39 10^6/uL (4.36-5.78); RDW 14.8 % (11.8-14.1); RDW-SD 50.3 fL
[2022-05-10 09:21] LABS: ALT 27 U/L (16-63); AST 18 U/L (15-37); Albumin 3.5 g/dL (3.4-5.0); Alkaline Phosphatase 64 U/L (46-116); Anion Gap 6.4 mmol/L (3-11); BUN 8 mg/dL (7-18); Bilirubin, Total 0.3 mg/dL (0.2-1.0); CO2 31.6 mmol/L (21.0-32.0); CREATININE 0.9 mg/dL (0.70-1.30); Chloride 103 mmol/L (98-107); Estimated GFR 100.24 (mL/min/1.73m2); Glucose 90 mg/dL (74-106); LDH 191 U/L (85-227); Potassium 4.1 mmol/L (3.5-5.1); Sodium 141 mmol/L (136-145); Total Protein 7.6 g/dL (6.4-8.2)
== END 2022-05-18 23:59 | disposition home or self-care (01) ==
LOC: INF 03:42
PROVIDERS: PCP Family Medicine; Visit Provider Nurse Practitioner Family
DX: C85.80 Other specified types of non-Hodgkin lymphoma, unspecified site (principal); Z45.2 Encounter for adjustment and management of vascular access device
CPT/HCPCS: 36591; 80053; 83615; 85025

== ENCOUNTER 2022-05-31 02:27 | Outpatient (RCR) | payer BC, SELFPAY ==
[2022-05-31] MEDS: Normal Saline Flush 10 ML SYR IVP (08:26)
[2022-05-31 08:43] LABS: Abs Immature Grans 0.01 10^3/uL (0.0-0.06); Absolute Basophil Count 0.04 10^3/uL (0.0-0.2); Absolute Eosinophil Count 0.09 10^3/uL (0.0-0.7); Absolute Lymphocyte Count 0.43 10^3/uL (1.2-3.4); Absolute Monocyte Count 0.36 10^3/uL (0.1-0.8); Absolute Neutrophil Count 1.89 10^3/uL (1.2-6.7); Basophils % 1.4; Eosinophils % 3.2; HCT 30.1 % (40.0-50.0); HGB 10.5 g/dL (13.5-17.5); Immature Grans % 0.4; Lymphocytes % 15.2; MCH 31.7 pg (27.0-33.0); MCHC 34.9 % (32.0-36.0); MCV 91 fL (80-95); MPV 9.6 fL (8.0-11.0); Monocytes % 12.8; Platelet Count 344 10^3/uL (130-400); RBC 3.31 10^6/uL (4.36-5.78); RDW 13.3 % (11.8-14.1); RDW-SD 43.2 fL; WBC 2.82 10^3/uL (4.4-10.8)
[2022-05-31 08:56] LABS: ALT 27 U/L (16-63); AST 18 U/L (15-37); Albumin 3.7 g/dL (3.4-5.0); Alkaline Phosphatase 56 U/L (46-116); Anion Gap 4.2 mmol/L (3-11); BUN 10 mg/dL (7-18); Bilirubin, Total 0.4 mg/dL (0.2-1.0); CO2 31.8 mmol/L (21.0-32.0); CREATININE 0.7 mg/dL (0.70-1.30); Calcium 9.2 mg/dL (8.5-10.1); Chloride 103 mmol/L (98-107); Estimated GFR 108.14 (mL/min/1.73m2); Glucose 94 mg/dL (74-106); LDH 208 U/L (85-227); Potassium 3.7 mmol/L (3.5-5.1); Sodium 139 mmol/L (136-145); Total Protein 7.4 g/dL (6.4-8.2)
== END 2022-06-18 23:59 | disposition home or self-care (01) ==
LOC: INF 02:27
PROVIDERS: PCP Family Medicine; Visit Provider Nurse Practitioner Family
DX: C85.80 Other specified types of non-Hodgkin lymphoma, unspecified site (principal); Z45.2 Encounter for adjustment and management of vascular access device
CPT/HCPCS: 36591; 80053; 83615; 85025

== ENCOUNTER 2022-10-18 03:02 | Outpatient (CLI) | payer BC, SELFPAY ==
[2022-10-18 12:39] LABS: Abs Immature Grans 0.01 10^3/uL (0.0-0.06); Absolute Basophil Count 0.03 10^3/uL (0.0-0.2); Absolute Eosinophil Count 0.23 10^3/uL (0.0-0.7); Absolute Lymphocyte Count 0.62 10^3/uL (1.2-3.4); Absolute Monocyte Count 0.48 10^3/uL (0.1-0.8); Absolute Neutrophil Count 3.54 10^3/uL (1.2-6.7); Basophils % 0.6; Eosinophils % 4.7; HCT 38.5 % (40.0-50.0); HGB 13.2 g/dL (13.5-17.5); Immature Grans % 0.2; Lymphocytes % 12.6; MCH 30.6 pg (27.0-33.0); MCHC 34.3 % (32.0-36.0); MCV 89 fL (80-95); MPV 9.5 fL (8.0-11.0); Monocytes % 9.8; Neutrophils % 72.1; Platelet Count 190 10^3/uL (130-400); RBC 4.32 10^6/uL (4.36-5.78); RDW 12.4 % (11.8-14.1); RDW-SD 40.7 fL; WBC 4.91 10^3/uL (4.4-10.8)
[2022-10-18 12:53] LABS: ALT 31 U/L (16-63); AST 26 U/L (15-37); Albumin 4.2 g/dL (3.4-5.0); Alkaline Phosphatase 66 U/L (46-116); Anion Gap 7.2 mmol/L (3-11); BUN 12 mg/dL (7-18); Bilirubin, Total 1.1 mg/dL (0.2-1.0); CO2 30.8 mmol/L (21.0-32.0); Calcium 9.1 mg/dL (8.5-10.1); Chloride 103 mmol/L (98-107); Estimated GFR 88.33 (mL/min/1.73m2); Glucose 92 mg/dL (74-106); LDH 199 U/L (85-227); Potassium 3.6 mmol/L (3.5-5.1); Sodium 141 mmol/L (136-145); Total Protein 7.5 g/dL (6.4-8.2)
== END 2022-10-18 03:03 | disposition home or self-care (01) ==
PROVIDERS: PCP Family Medicine; Visit Provider Nurse Practitioner Family
DX: C85.80 Other specified types of non-Hodgkin lymphoma, unspecified site (principal)
CPT/HCPCS: 36415; 80053; 83615; 85025

== ENCOUNTER 2023-02-14 04:06 | Outpatient (CLI) | payer BC, SELFPAY ==
[2023-02-14 09:14] LABS: Abs Immature Grans 0.01 10^3/uL (0.0-0.06); Absolute Basophil Count 0.03 10^3/uL (0.0-0.2); Absolute Eosinophil Count 0.19 10^3/uL (0.0-0.7); Absolute Lymphocyte Count 0.57 10^3/uL (1.2-3.4); Absolute Monocyte Count 0.35 10^3/uL (0.1-0.8); Basophils % 0.8; Eosinophils % 4.8; HCT 41.7 % (40.0-50.0); HGB 14.4 g/dL (13.5-17.5); Immature Grans % 0.3; Lymphocytes % 14.3; MCH 31.1 pg (27.0-33.0); MCHC 34.5 % (32.0-36.0); MCV 90 fL (80-95); Monocytes % 8.8; Platelet Count 209 10^3/uL (130-400); RBC 4.63 10^6/uL (4.36-5.78); RDW 12.3 % (11.8-14.1); RDW-SD 40.6 fL
[2023-02-14 09:17] LABS: Absolute Neutrophil Count 2.84 10^3/uL (1.2-6.7)
[2023-02-14 09:26] LABS: ALT 43 U/L (16-63); AST 29 U/L (15-37); Albumin 4.3 g/dL (3.4-5.0); Alkaline Phosphatase 75 U/L (46-116); Anion Gap 8.8 mmol/L (3-11); BUN 12 mg/dL (7-18); Bilirubin, Total 1.3 mg/dL (0.2-1.0); CO2 29.2 mmol/L (21.0-32.0); Calcium 9.1 mg/dL (8.5-10.1); Chloride 101 mmol/L (98-107); Estimated GFR 87.78 (mL/min/1.73m2); Glucose 136 mg/dL (74-106); LDH 236 U/L (85-227); Potassium 3.9 mmol/L (3.5-5.1); Sodium 139 mmol/L (136-145); Total Protein 7.8 g/dL (6.4-8.2)
== END 2023-02-14 04:07 | disposition home or self-care (01) ==
PROVIDERS: PCP Family Medicine; Visit Provider Nurse Practitioner Family
DX: C85.80 Other specified types of non-Hodgkin lymphoma, unspecified site (principal)
CPT/HCPCS: 36415; 80053; 83615; 85025

== ENCOUNTER 2023-05-16 09:17 | Outpatient (CLI) | payer BC, SELFPAY ==
[2023-05-16 08:23] LABS: Absolute Basophil Count 0.02 10^3/uL (0.0-0.2); Absolute Eosinophil Count 0.23 10^3/uL (0.0-0.7); Absolute Lymphocyte Count 0.69 10^3/uL (1.2-3.4); Absolute Monocyte Count 0.42 10^3/uL (0.1-0.8); Absolute Neutrophil Count 3.04 10^3/uL (1.2-6.7); Basophils % 0.5; Eosinophils % 5.2; HCT 41.7 % (40.0-50.0); HGB 14.4 g/dL (13.5-17.5); Lymphocytes % 15.7; MCH 31.3 pg (27.0-33.0); MCHC 34.5 % (32.0-36.0); MCV 91 fL (80-95); MPV 9.5 fL (8.0-11.0); Monocytes % 9.5; Neutrophils % 69.1; Platelet Count 200 10^3/uL (130-400); RDW 12.3 % (11.8-14.1); RDW-SD 40.7 fL
[2023-05-16 08:36] LABS: ALT 31 U/L (16-63); AST 26 U/L (15-37); Albumin 3.9 g/dL (3.4-5.0); Alkaline Phosphatase 62 U/L (46-116); Anion Gap 6.5 mmol/L (3-11); BUN 8 mg/dL (7-18); Bilirubin, Total 1.6 mg/dL (0.2-1.0); CO2 30.5 mmol/L (21.0-32.0); Calcium 9.3 mg/dL (8.5-10.1); Chloride 102 mmol/L (98-107); Estimated GFR 87.78 (mL/min/1.73m2); Glucose 98 mg/dL (74-106); LDH 216 U/L (85-227); Sodium 139 mmol/L (136-145); Total Protein 7.2 g/dL (6.4-8.2)
== END 2023-05-16 09:18 | disposition home or self-care (01) ==
LOC: LBO 09:18
PROVIDERS: PCP Family Medicine; Visit Provider Internal Medicine Hematology & Oncology
DX: C85.80 Other specified types of non-Hodgkin lymphoma, unspecified site (principal)
CPT/HCPCS: 36415; 80053; 83615; 85025

== ENCOUNTER 2023-08-01 01:49 | Outpatient (CLI) | payer BC, SELFPAY ==
[2023-08-01 13:43] LABS: Abs Immature Grans 0.01 10^3/uL (0.0-0.06); Absolute Basophil Count 0.02 10^3/uL (0.0-0.2); Absolute Lymphocyte Count 0.72 10^3/uL (1.2-3.4); Absolute Monocyte Count 0.36 10^3/uL (0.1-0.8); Absolute Neutrophil Count 2.91 10^3/uL (1.2-6.7); Basophils % 0.5; Eosinophils % 6.9; HCT 40.4 % (40.0-50.0); HGB 13.8 g/dL (13.5-17.5); Immature Grans % 0.2; Lymphocytes % 16.7; MCH 31.1 pg (27.0-33.0); MCHC 34.2 % (32.0-36.0); MCV 91 fL (80-95); MPV 9.7 fL (8.0-11.0); Monocytes % 8.3; Neutrophils % 67.4; Platelet Count 201 10^3/uL (130-400); RBC 4.44 10^6/uL (4.36-5.78); RDW 13.2 % (11.8-14.1); RDW-SD 43.8 fL; WBC 4.32 10^3/uL (4.4-10.8)
[2023-08-01 13:57] LABS: ALT 36 U/L (16-63); AST 27 U/L (15-37); Alkaline Phosphatase 59 U/L (46-116); Anion Gap 2.7 mmol/L (3-11); BUN 11 mg/dL (7-18); Bilirubin, Total 0.9 mg/dL (0.2-1.0); CO2 34.3 mmol/L (21.0-32.0); Calcium 9.3 mg/dL (8.5-10.1); Chloride 104 mmol/L (98-107); Estimated GFR 87.78 (mL/min/1.73m2); Glucose 85 mg/dL (74-106); LDH 222 U/L (85-227); Potassium 3.9 mmol/L (3.5-5.1); Sodium 141 mmol/L (136-145); Total Protein 7.4 g/dL (6.4-8.2)
== END 2023-08-01 01:50 | disposition home or self-care (01) ==
LOC: LBO 01:49
PROVIDERS: PCP Family Medicine; Visit Provider Internal Medicine Hematology & Oncology
DX: C85.80 Other specified types of non-Hodgkin lymphoma, unspecified site (principal)
CPT/HCPCS: 36415; 80053; 83615; 85025

== ENCOUNTER 2023-11-07 12:20 | Outpatient (CLI) | payer BC, SELFPAY ==
[2023-11-07 13:16] LABS: ALT 36 U/L (16-63); AST 25 U/L (15-37); Albumin 4.2 g/dL (3.4-5.0); Alkaline Phosphatase 72 U/L (46-116); Anion Gap 6.2 mmol/L (3-11); BUN 10 mg/dL (7-18); Bilirubin, Total 1.4 mg/dL (0.2-1.0); CO2 32.8 mmol/L (21.0-32.0); Calcium 9.4 mg/dL (8.5-10.1); Chloride 104 mmol/L (98-107); Estimated GFR 87.78 (mL/min/1.73m2); Glucose 91 mg/dL (74-106); LDH 204 U/L (85-227); Sodium 143 mmol/L (136-145); Total Protein 7.6 g/dL (6.4-8.2)
[2023-11-07 13:30] LABS: Abs Immature Grans 0.01 10^3/uL (0.0-0.06); Absolute Basophil Count 0.03 10^3/uL (0.0-0.2); Absolute Eosinophil Count 0.23 10^3/uL (0.0-0.7); Absolute Monocyte Count 0.38 10^3/uL (0.1-0.8); Absolute Neutrophil Count 2.96 10^3/uL (1.2-6.7); Basophils % 0.7; Eosinophils % 5.1; HCT 45.8 % (40.0-50.0); HGB 15.8 g/dL (13.5-17.5); Immature Grans % 0.2; MCH 31.7 pg (27.0-33.0); MCHC 34.5 % (32.0-36.0); MCV 92 fL (80-95); MPV 10.4 fL (8.0-11.0); Monocytes % 8.4; Neutrophils % 65.6; Platelet Count 209 10^3/uL (130-400); RBC 4.99 10^6/uL (4.36-5.78); RDW 12.2 % (11.8-14.1); RDW-SD 40.9 fL; WBC 4.51 10^3/uL (4.4-10.8)
== END 2023-11-07 12:21 | disposition home or self-care (01) ==
PROVIDERS: PCP Family Medicine; Visit Provider Nurse Practitioner Family
DX: C85.83 Other specified types of non-Hodgkin lymphoma, intra-abdominal lymph nodes (principal)
CPT/HCPCS: 36415; 80053; 83615; 85025

== ENCOUNTER 2024-02-13 01:33 | Outpatient (CLI) | payer BC, SELFPAY ==
[2024-02-13 12:51] LABS: Abs Immature Grans 0.01 10^3/uL (0.0-0.06); Absolute Basophil Count 0.03 10^3/uL (0.0-0.2); Absolute Eosinophil Count 0.13 10^3/uL (0.0-0.7); Absolute Lymphocyte Count 0.84 10^3/uL (1.2-3.4); Absolute Monocyte Count 0.36 10^3/uL (0.1-0.8); Basophils % 0.7 %; Eosinophils % 2.9 %; HCT 40.9 % (40.0-50.0); HGB 14.2 g/dL (13.5-17.5); Immature Grans % 0.2 %; Lymphocytes % 18.8 %; MCHC 34.7 % (32.0-36.0); MCV 92 fL (80-95); MPV 10.1 fL (8.0-11.0); Monocytes % 8.1 %; Neutrophils % 69.3 %; Platelet Count 198 10^3/uL (130-400); RBC 4.44 10^6/uL (4.36-5.78); RDW-SD 40.8 fL; WBC 4.47 10^3/uL (4.4-10.8)
[2024-02-13 13:07] LABS: ALT 33 U/L (16-63); AST 29 U/L (15-37); Alkaline Phosphatase 60 U/L (46-116); Anion Gap 7.1 mmol/L (3-11); BUN 7 mg/dL (7-18); Bilirubin, Total 1.62 mg/dL (0.2-1.0); CO2 30.9 mmol/L (21.0-32.0); Calcium 9.3 mg/dL (8.5-10.1); Chloride 106 mmol/L (98-107); Estimated GFR 87.24 (mL/min/1.73m2); Glucose 114 mg/dL (74-106); LDH 227 U/L (85-227); Potassium 3.8 mmol/L (3.5-5.1); Sodium 144 mmol/L (136-145)
== END 2024-02-13 01:34 | disposition home or self-care (01) ==
LOC: LBO 01:53
PROVIDERS: PCP Family Medicine; Visit Provider Internal Medicine Hematology & Oncology
DX: C85.80 Other specified types of non-Hodgkin lymphoma, unspecified site (principal)
CPT/HCPCS: 36415; 80053; 83615; 85025

== ENCOUNTER 2024-06-11 03:53 | Outpatient (CLI) | payer BC, SELFPAY ==
[2024-06-11 12:03] LABS: Abs Immature Grans 0.01 10^3/uL (0.0-0.06); Absolute Basophil Count 0.03 10^3/uL (0.0-0.2); Absolute Eosinophil Count 0.17 10^3/uL (0.0-0.7); Absolute Lymphocyte Count 0.86 10^3/uL (1.2-3.4); Absolute Monocyte Count 0.36 10^3/uL (0.1-0.8); Basophils % 0.7 %; Eosinophils % 3.9 %; HCT 43.4 % (40.0-50.0); HGB 14.9 g/dL (13.5-17.5); Immature Grans % 0.2 %; Lymphocytes % 19.9 %; MCH 31.9 pg (27.0-33.0); MCHC 34.3 % (32.0-36.0); MCV 93 fL (80-95); MPV 9.4 fL (8.0-11.0); Monocytes % 8.3 %; Platelet Count 197 10^3/uL (130-400); RBC 4.67 10^6/uL (4.36-5.78); RDW 12.4 % (11.8-14.1); RDW-SD 42.5 fL; WBC 4.33 10^3/uL (4.4-10.8)
[2024-06-11 12:20] LABS: ALT 38 U/L (16-63); AST 34 U/L (15-37); Albumin 4.1 g/dL (3.4-5.0); Alkaline Phosphatase 68 U/L (46-116); Anion Gap 3.2 mmol/L (3-11); BUN 10 mg/dL (7-18); Bilirubin, Total 1.94 mg/dL (0.2-1.0); CO2 33.8 mmol/L (21.0-32.0); Calcium 9.6 mg/dL (8.5-10.1); Chloride 106 mmol/L (98-107); Estimated GFR 87.24 (mL/min/1.73m2); Glucose 92 mg/dL (74-106); LDH 212 U/L (85-227); Potassium 3.7 mmol/L (3.5-5.1); Sodium 143 mmol/L (136-145); Total Protein 7.7 g/dL (6.4-8.2)
== END 2024-06-11 03:54 | disposition home or self-care (01) ==
LOC: LBO 03:53
PROVIDERS: PCP Family Medicine; Visit Provider Internal Medicine Hematology & Oncology
DX: C85.80 Other specified types of non-Hodgkin lymphoma, unspecified site (principal)
CPT/HCPCS: 36415; 80053; 83615; 85025

== ENCOUNTER 2024-12-09 03:28 | Outpatient (CLI) | payer BC, SELFPAY ==
[2024-12-09 12:52] LABS: Abs Immature Grans 0.02 10^3/uL (0.0-0.06); Absolute Basophil Count 0.04 10^3/uL (0.0-0.2); Absolute Eosinophil Count 0.19 10^3/uL (0.0-0.7); Absolute Lymphocyte Count 0.66 10^3/uL (1.2-3.4); Absolute Neutrophil Count 3.03 10^3/uL (1.2-6.7); Basophils % 0.9 %; Eosinophils % 4.2 %; HCT 40.3 % (40.0-50.0); HGB 13.7 g/dL (13.5-17.5); Immature Grans % 0.4 %; Lymphocytes % 14.5 %; MCH 31.9 pg (27.0-33.0); MCV 94 fL (80-95); MPV 10.2 fL (8.0-11.0); Monocytes % 13.2 %; Neutrophils % 66.8 %; Platelet Count 216 10^3/uL (130-400); RBC 4.29 10^6/uL (4.36-5.78); RDW-SD 44.9 fL; WBC 4.54 10^3/uL (4.4-10.8)
[2024-12-09 13:11] LABS: ALT 37 U/L (16-63); AST 29 U/L (15-37); Albumin 3.9 g/dL (3.4-5.0); Alkaline Phosphatase 77 U/L (46-116); Anion Gap 5.6 mmol/L (3-11); BUN 11 mg/dL (7-18); Bilirubin, Total 1.1 mg/dL (0.2-1.0); CO2 33.4 mmol/L (21.0-32.0); CREATININE 1.1 mg/dL (0.70-1.30); Calcium 9.7 mg/dL (8.5-10.1); Chloride 104 mmol/L (98-107); Estimated GFR 77.33 (mL/min/1.73m2); Glucose 91 mg/dL (74-106); LDH 246 U/L (85-227); Potassium 3.8 mmol/L (3.5-5.1); Sodium 143 mmol/L (136-145); Total Protein 7.6 g/dL (6.4-8.2)
== END 2024-12-09 03:29 | disposition home or self-care (01) ==
PROVIDERS: PCP Family Medicine; Visit Provider Internal Medicine Hematology & Oncology
DX: C85.80 Other specified types of non-Hodgkin lymphoma, unspecified site (principal)
CPT/HCPCS: 36415; 80053; 83615; 85025

== ENCOUNTER 2025-01-27 12:10 | Outpatient (CLI) | payer BC, SELFPAY ==
[2025-01-27 12:20] LABS: Abs Immature Grans 0.01 10^3/uL (0.0-0.06); Absolute Basophil Count 0.03 10^3/uL (0.0-0.2); Absolute Eosinophil Count 0.15 10^3/uL (0.0-0.7); Absolute Lymphocyte Count 0.57 10^3/uL (1.2-3.4); Absolute Monocyte Count 0.74 10^3/uL (0.1-0.8); Absolute Neutrophil Count 2.72 10^3/uL (1.2-6.7); Basophils % 0.7 %; Eosinophils % 3.6 %; HCT 33.1 % (40.0-50.0); HGB 10.9 g/dL (13.5-17.5); Immature Grans % 0.2 %; Lymphocytes % 13.5 %; MCH 29.9 pg (27.0-33.0); MCHC 32.9 % (32.0-36.0); MCV 91 fL (80-95); MPV 10.1 fL (8.0-11.0); Monocytes % 17.5 %; Neutrophils % 64.5 %; Platelet Count 109 10^3/uL (130-400); RBC 3.65 10^6/uL (4.36-5.78); RDW 16.8 % (11.8-14.1); RDW-SD 55.9 fL; WBC 4.22 10^3/uL (4.4-10.8)
[2025-01-27 12:37] LABS: ALT 39 U/L (16-63); AST 40 U/L (15-37); Albumin 3.4 g/dL (3.4-5.0); Alkaline Phosphatase 78 U/L (46-116); Anion Gap 6.7 mmol/L (3-11); BUN 10 mg/dL (7-18); Bilirubin, Total 1.5 mg/dL (0.2-1.0); CO2 30.3 mmol/L (21.0-32.0); CREATININE 0.8 mg/dL (0.70-1.30); Calcium 8.8 mg/dL (8.5-10.1); Chloride 101 mmol/L (98-107); Estimated GFR 101.95 (mL/min/1.73m2); Glucose 97 mg/dL (74-106); LDH 460 U/L (85-227); Potassium 3.8 mmol/L (3.5-5.1); Sodium 138 mmol/L (136-145)
[2025-01-27 15:06] LABS: Uric Acid 6.3 mg/dL (3.5-7.2)
== END 2025-01-27 12:11 | disposition home or self-care (01) ==
LOC: LBO 12:11
PROVIDERS: PCP Family Medicine; Visit Provider Internal Medicine Hematology & Oncology
DX: C85.80 Other specified types of non-Hodgkin lymphoma, unspecified site (principal)
CPT/HCPCS: 36415; 80053; 83615; 84550; 85025

== ENCOUNTER 2025-02-24 04:05 | Outpatient (CLI) | payer BC, SELFPAY ==
[2025-02-24 12:04] LABS: Abs Immature Grans 0.01 10^3/uL (0.0-0.06); HCT 29.2 % (40.0-50.0); HGB 9.7 g/dL (13.5-17.5); Immature Grans % 0.3 %; MCH 30.6 pg (27.0-33.0); MCHC 33.2 % (32.0-36.0); MCV 92 fL (80-95); MPV 9.7 fL (8.0-11.0); RBC 3.17 10^6/uL (4.36-5.78); RDW 15.8 % (11.8-14.1); RDW-SD 53.2 fL; WBC 3.62 10^3/uL (4.4-10.8)
[2025-02-24 12:26] LABS: ALT 38 U/L (16-63); AST 45 U/L (15-37); Albumin 3.1 g/dL (3.4-5.0); Alkaline Phosphatase 89 U/L (46-116); Anion Gap 6.1 mmol/L (3-11); BUN 8 mg/dL (7-18); Bilirubin, Total 1.2 mg/dL (0.2-1.0); CO2 29.9 mmol/L (21.0-32.0); Calcium 8.8 mg/dL (8.5-10.1); Chloride 101 mmol/L (98-107); Estimated GFR 98.38 (mL/min/1.73m2); Glucose 89 mg/dL (74-106); LDH 592 U/L (85-227); Potassium 3.9 mmol/L (3.5-5.1); Sodium 137 mmol/L (136-145); Total Protein 6.5 g/dL (6.4-8.2); Uric Acid 5.7 mg/dL (3.5-7.2)
[2025-02-24 13:04] LABS: Platelet Count 92 10^3/uL (130-400); RBC Morphology Normal
== END 2025-02-24 04:06 | disposition home or self-care (01) ==
LOC: LBO 04:05
PROVIDERS: PCP Family Medicine; Visit Provider Internal Medicine Hematology & Oncology
DX: C85.80 Other specified types of non-Hodgkin lymphoma, unspecified site (principal)
CPT/HCPCS: 36415; 80053; 83615; 84550; 85025

== ENCOUNTER 2025-02-26 23:52 | Emergency (ER) | payer BC, SELFPAY ==
[2025-02-26 23:56] VITALS: BP 133/83; PULSE 95; RESP 16; TEMP 36.8; O2SAT 97
--- NOTE | 2025-02-27 00:29 | W.ED.GENAD ---
Discharge Plan Disposition Patient Disposition: Home Condition: Good Discharge Details Clinical Impression: Insomnia, Adverse drug reaction Primary Care Provider: Anaid Johnson ED Provider: Janene Matta Home Meds and New Rx's Prescriptions: New lorazepam [Ativan] 1 mg tablet 1 mg PO QHS PRNQty: 5 0RF Continued multivitamin Tablet 1 tab PO DAILY allopurinol 300 mg tablet 300 mg PO DAILY Patient Comments: TAKE ONE TABLET BY MOUTH EVERY DAY lenalidomide [Revlimid] 20 mg capsule 20 mg PO DAILY Patient Comments: hasnt started yet prednisone 20 mg tablet 80 mg PO DAILY Patient Comments: TAKE FOUR TABLETS BY MOUTH DAILY FOR 14 DAYS Discharge Instructions Instructions: Lorazepam, Prednisone Additional Instructions: Take the 1mg lorazapam when you get home. This should help your anxiety and help you sleep. A short prescription for this has been sent to your pharmacy; please pick it up tomorrow. Take one at bedtime if needed. Call your oncologist in the morning to schedule an appointment to be seen as soon as possible to followup on your visit here and to discuss your reaction to the prednisone. In the meantime take all of your medications as prescribed. Return to the emergency department for new or worsening symptoms. HPI General Mode of arrival: ambulatory. Date/Time Provider Initiated Documentation: 02/26/25 23:53. Limitations to Documentation: no limitations. Information obtained by: patient. HPI Narrative: 59yo M with lymphoma, just started on course of prednisone, presenting for anxiety and insomnia. Unable to sleep tonight, feels 'jittery'. Taking 80mg of prednisone daily. Had had lower doses of steroids before without having this response but this is the highest he has been on. Otherwise in his usual state of health with no fevers, chills, rash, nausea, vomiting, abdominal pain,chest pain, shortness of breath, SI, HI, hallucinations, or other concerns. Related Data Home Medications ?Medication ?Instructions ?Recorded ?Confirmed multivitamin 1 tab PO DAILY 12/22/21 02/27/25 allopurinol 300 mg tablet 300 mg PO DAILY 02/27/25 02/27/25 lenalidomide 20 mg capsule 20 mg PO DAILY 02/27/25 02/27/25 (Revlimid) lorazepam 1 mg tablet (Ativan) 1 mg PO QHS PRN #5 tabs 02/27/25 prednisone 20 mg tablet 80 mg PO DAILY 02/27/25 02/27/25 Previous Rx's ?Medication ?Instructions ?Recorded lorazepam 1 mg tablet (Ativan) 1 mg PO QHS PRN #5 tabs 02/27/25 Allergies Allergy/AdvReac Type Severity Reaction Status Date / Time No Known Allergies Allergy Unverified 02/27/25 00:04 General Stated Complaint: Anxiety MIC: 4 Review of Systems Narrative: see HPI Exam Narrative Exam Narrative: General: Alert, well appearing, well nourished, in no acute distress. Head: Normocephalic, atraumatic Neck: Trachea midline, ?Neck supple. ENT: ?MMM.? Cardiac: ?RRR, no murmurs appreciated Resp: No respiratory distress. CTAB. Abd: ?Soft, non-distended, nontender : ?No suprapubic tenderness. Extremities: ?No deformities.? No peripheral edema. Neurologic: GCS 15. ? Moves all extremities freely against gravity Psych: Calm, cooperative.? Well groomed.? Mood tired, affect congruent.? Speech with normal volume, rate, rythym and tone. Linear and goal directed.? Denies SI/HI/AH/VH. ? Does not appear to be responding to internal stimuli. Course Vital Signs Vital signs: Vital Signs Temperature 36.8 C 02/26/25 23:56 Pulse 95 H 02/26/25 23:56 Respiratory Rate 16 02/26/25 23:56 Blood Pressure 133/83 02/26/25 23:56 Pulse Oximetry 97 02/26/25 23:56 Temperature 36.8 C 02/26/25 23:56 Temperature Source Oral 02/26/25 23:56 Pulse 95 H 02/26/25 23:56 Respiratory Rate 16 02/26/25 23:56 Respiratory Effort Normal, Non-Labored 02/27/25 00:01 Respiratory Pattern Normal 02/27/25 00:01 Blood Pressure 133/83 02/26/25 23:56 Pulse Oximetry 97 02/26/25 23:56 Oxygen Delivery Method Non-Rebreather 02/26/25 23:56 Pain Level 0 02/26/25 23:56 Medical Decision Making 59yo M with lymphoma, just started on course of prednisone, presenting for anxiety and insomnia. Otherwise in his usual state of health. Requesting something to help him sleep. Slightly tachycardiac to low 90's after ambulating into triage, vital signs otherwise reassuring. Normal physical exam. No SI/HI/AH/VH. No chest pain or shortness of breath to suggest acute coronary syndromes, pulmonary embolism, or other emergent pathology. No hallucinations or evidence of psychosis. No indication for labs or other workup at this time; will treat symptoms with 1mg PO ativan. Given dose to take home and prescription sent for short course. He was advised to followup with his oncologist regarding his symptoms/prednisone/insomnia. Discharged home; discharge instructions and return precautions were reviewed with patient who verbalized understanding. All questions were answered and he is in full agreement with the plan. PFSH All Active Problems (Updated 02/27/25 @ 00:29 by Janene Matta MD) Adverse drug reaction (Acute) Insomnia (Acute) COVID (Acute) B-cell lymphoma (Acute) Mass of left axilla (Acute) Lymphadenopathy, generalized (Acute) Medical History Anxiety Flat feet History of shingles 2 years ago Hx of fracture of ankle bilateral reported by patient Insomnia Schizoaffective disorder Surgical History History of open reduction and internal fixation (ORIF) procedure pt. thinks it was his L ankle Social History Smoking/Tobacco Use Status: Former Tobacco Use tobacco type: cigarettes Quit Date: 08/19/96 Smoking risk assessment performed?: Yes Alcohol Intake: never Drug use: Never Substance use type: does not use Details: t-1: wine, 6 oz Housing: house Do you feel safe at home: Yes Do you feel safe in your relationship?: Yes
[2025-02-27 00:50] VITALS: PULSE 98; O2SAT 98
[2025-02-27 00:51] VITALS: PULSE 98; O2SAT 98
[2025-02-27] MEDS: LORazepam 1 MG TAB PO (00:53)
== END 2025-02-27 01:05 | disposition home or self-care (01) ==
PROVIDERS: Emergency Provider Student in an Organized Health Care Education/Training Program; PCP Family Medicine
DX: G47.00 Insomnia, unspecified (principal); T38.0X5A Adverse effect of glucocorticoids and synthetic analogues, initial encounter; F41.9 Anxiety disorder, unspecified
CPT/HCPCS: 99283 ×2

== ENCOUNTER 2025-03-24 09:41 | Outpatient (CLI) | payer BC, SELFPAY ==
[2025-03-24 09:09] LABS: Abs Immature Grans 0.16 10^3/uL (0.0-0.06); HCT 25.7 % (40.0-50.0); HGB 8.6 g/dL (13.5-17.5); Immature Grans % 0.9 %; MCH 30.0 pg (27.0-33.0); MCHC 33.5 % (32.0-36.0); MCV 90 fL (80-95); MPV 10.0 fL (8.0-11.0); Platelet Count 144 10^3/uL (130-400); RBC 2.87 10^6/uL (4.36-5.78); RDW 17.7 % (11.8-14.1); RDW-SD 57.2 fL; WBC 17.58 10^3/uL (4.4-10.8)
[2025-03-24 09:26] LABS: ALT 56 U/L (16-63); AST 51 U/L (15-37); Albumin 3.0 g/dL (3.4-5.0); Alkaline Phosphatase 166 U/L (46-116); Anion Gap 7.4 mmol/L (3-11); BUN 11 mg/dL (7-18); Bilirubin, Total 1.9 mg/dL (0.2-1.0); CO2 29.6 mmol/L (21.0-32.0); Calcium 8.7 mg/dL (8.5-10.1); Chloride 94 mmol/L (98-107); Estimated GFR 98.38 (mL/min/1.73m2); Glucose 126 mg/dL (74-106); LDH 502 U/L (85-227); Potassium 4.0 mmol/L (3.5-5.1); Sodium 131 mmol/L (136-145); Total Protein 6.9 g/dL (6.4-8.2); Uric Acid 7.1 mg/dL (3.5-7.2)
[2025-03-24 21:42] LABS: HBs Antibody, Quant 4.6 mIU/mL (See Note); Hepatitis B Surface Ab Negative (See Note)
[2025-03-24 22:22] LABS: HIV-1/2 Ag & Ab Screen Negative (Negative)
[2025-03-24 22:29] LABS: Hep B Core Antibody Negative (Negative)
[2025-03-24 22:45] LABS: Hepatitis C Ab w Rflx HCV PCR Negative (Negative)
== END 2025-03-24 09:42 | disposition home or self-care (01) ==
LOC: LBO 09:41
PROVIDERS: PCP Family Medicine; Visit Provider Internal Medicine Hematology & Oncology
DX: C85.80 Other specified types of non-Hodgkin lymphoma, unspecified site (principal)
CPT/HCPCS: 36415; 80053; 86704; 86706; 86803; 87340; 87389; 83615; 84550; 85025

== ENCOUNTER 2025-03-31 21:37 | Outpatient (CLI) | payer BC, SELFPAY ==
[2025-03-31 19:10] LABS: Ferritin 1570 ng/mL (26-388)
[2025-04-01 19:30] LABS: Iron 30 ug/dL (65-175); Total Iron Binding Capacity 200 ug/dL (250-450); Transferrin Sat 15 % (20-55)
== END 2025-03-31 21:38 | disposition home or self-care (01) ==
LOC: LBO 21:38
PROVIDERS: PCP Family Medicine; Visit Provider Internal Medicine Hematology & Oncology
DX: C85.80 Other specified types of non-Hodgkin lymphoma, unspecified site (principal); D64.9 Anemia, unspecified
CPT/HCPCS: 36415; 86850; 86900; 86901; 82728; 83540; 83550

== ENCOUNTER 2025-04-01 03:33 | Outpatient (RCR) | payer BC, SELFPAY ==
[2025-03-31 09:15] LABS: Abs Immature Grans 0.09 10^3/uL (0.0-0.06); Immature Grans % 0.8 %; MCH 30.1 pg (27.0-33.0); MCHC 33.3 % (32.0-36.0); MCV 90 fL (80-95); MPV 9.4 fL (8.0-11.0); Platelet Count 303 10^3/uL (130-400); RBC 2.26 10^6/uL (4.36-5.78); RDW 17.7 % (11.8-14.1); RDW-SD 58.1 fL; WBC 11.27 10^3/uL (4.4-10.8)
[2025-03-31 09:37] LABS: ALT 100 U/L (16-63); AST 69 U/L (15-37); Albumin 2.5 g/dL (3.4-5.0); Alkaline Phosphatase 276 U/L (46-116); Anion Gap 5.0 mmol/L (3-11); BUN 6 mg/dL (7-18); Bilirubin, Total 0.8 mg/dL (0.2-1.0); CO2 29.0 mmol/L (21.0-32.0); Calcium 8.4 mg/dL (8.5-10.1); Chloride 97 mmol/L (98-107); Estimated GFR 111.20 (mL/min/1.73m2); Glucose 113 mg/dL (74-106); LDH 369 U/L (85-227); Potassium 4.1 mmol/L (3.5-5.1); Sodium 131 mmol/L (136-145); Total Protein 6.2 g/dL (6.4-8.2); Uric Acid 3.1 mg/dL (3.5-7.2)
[2025-03-31 09:38] LABS: HGB 6.8 g/dL (13.5-17.5)
[2025-03-31 09:41] LABS: HCT 20.4 % (40.0-50.0)
[2025-03-31 09:52] LABS: Hypochromasia 2+
[2025-04-01] VITALS (12 sets, daily range): BP systolic 82–96; BP diastolic 43–64; PULSE 87–111; RESP 19–22; TEMP 36.3–37; O2SAT 97–100
[2025-04-01] MEDS: Normal Saline Flush 10 ML SYR IVP (14:02)
== END 2025-04-18 23:59 | disposition home or self-care (01) ==
LOC: INF 03:33
PROVIDERS: PCP Family Medicine; Visit Provider Internal Medicine Hematology & Oncology
DX: C83.30 Diffuse large B-cell lymphoma, unspecified site (principal)
CPT/HCPCS: 36430; 80053; 86850; 86900; 86901; 86920; 86945; 83615; 84550; 85025; 86644; P9016

== ENCOUNTER 2025-04-01 13:28 | Observation (INO) | payer BC, SELFPAY ==
[2025-04-01 13:49] VITALS: BP 90/55; PULSE 93; RESP 18; TEMP 36.5; O2SAT 99
--- NOTE | 2025-04-01 14:30 | DI.RAD_ITS ---
Exam(s) XR PORTABLE CHEST AP EXAM: XR PORTABLE CHEST AP CLINICAL HISTORY: cough, fever, r/o pneumonia TECHNIQUE: 2D digital imaging was performed. COMPARISON: CR XR CHEST 2V PA LATERAL from 04/05/[address] CHEST/ABD/PEL W from 08/14/2023 FINDINGS: LUNGS: Clear. No pleural abnormality seen. Surgical clips at right lung apex. HEART: Normal size. AORTA: Normal diameter. BONES: Unremarkable for age. Soft tissues: Unremarkable port over right upper chest with tip in right atrium. IMPRESSION: No acute findings. DATA REPOSITORY: RADIATION DOSE DELIVERED:
--- NOTE | 2025-04-01 14:48 | W.ED.GENAD ---
Discharge Plan Disposition Patient Disposition: Admit to [facility] Condition: Good Discharge Details Clinical Impression: Rigors, Neutrophilia Primary Care Provider: Anaid Johnson ED Provider: Lincoln Mccann Home Meds and New Rx's Prescriptions: No Action multivitamin Tablet 1 tab PO DAILY allopurinol 300 mg tablet 300 mg PO DAILY Patient Comments: TAKE ONE TABLET BY MOUTH EVERY DAY lenalidomide [Revlimid] 20 mg capsule 20 mg PO DAILY Patient Comments: hasnt started yet prednisone 20 mg tablet 80 mg PO DAILY Patient Comments: TAKE FOUR TABLETS BY MOUTH DAILY FOR 14 DAYS lorazepam [Ativan] 1 mg tablet 1 mg PO QHS PRNQty: 5 0RF HPI General Date/Time Provider Initiated Documentation: 04/01/25 13:56. HPI Narrative: This is a 59-year-old male with past medical history of large B-cell lymphoma, with an active port, currently supposed to be taking acyclovir and Bactrim, (but he may not be doing this consistently), receiving Bendamustine, and pegfilgrastim CBQB, who presents today from the infusion clinic. Patient states that over the last day or so he has been having chills, increase in urinary frequency, felt that his temperature might of been increasing, that is also had a chronic mild cough. He denies any other symptoms. He denies any chest pain or abdominal pain. At the infusion clinic today he was recommended to come here for further assessment after describing the symptoms to them. He denies any recent tick bites, rashes or lesions. No other complaints at this time. Related Data Home Medications ?Medication ?Instructions ?Recorded ?Confirmed multivitamin 1 tab PO DAILY 12/22/21 04/01/25 allopurinol 300 mg tablet 300 mg PO DAILY 02/27/25 04/01/25 lenalidomide 20 mg capsule 20 mg PO DAILY 02/27/25 04/01/25 (Revlimid) Held on 04/01/25. Instructions: Pt Stopped/Never Started lorazepam 1 mg tablet (Ativan) 1 mg PO QHS PRN #5 tabs 02/27/25 04/01/25 prednisone 20 mg tablet 80 mg PO DAILY 02/27/25 04/01/25 Previous Rx's ?Medication ?Instructions ?Recorded lorazepam 1 mg tablet (Ativan) 1 mg PO QHS PRN #5 tabs 02/27/25 Allergies Allergy/AdvReac Type Severity Reaction Status Date / Time No Known Allergies Allergy Unverified 04/01/25 13:52 General Stated Complaint: Urinary MIC: 3 Exam Narrative Exam Narrative: 1.Const: Well-nourished, Well-developed, appearing stated age 2.Eyes: PERRL, no conjunctival injection, and symmetrical lids. 3.ENT: Atraumatic external nose and ears. Moist MM. Neck: Symmetric, trachea midline, No thyromegaly. No neck stiffness 4.CVS: +S1/S2, Peripheral pulses 2+ and equal in all extremities. Brisk capillary refill in all extremities. 5.RESP: Unlabored respiratory effort. Clear to auscultation bilaterally. No wheezes rales or rhonchi 6.GI: Soft, Nontender/Nondistended, No hepatosplenomegaly. No guarding or rebound. 7.MSK: Normocephalic/Atraumatic, Extremities w/o deformity or ttp No cyanosis or clubbing, Normal movement of all extremities 8.Skin: Warm, Dry. No rashes or lesions. 9.Neuro: qualitative researcher II-XII grossly intact. Sensation grossly intact, no focal neurologic deficits. 10.Psych: (AAO) x3. Appropriate mood and affect Course Vital Signs Vital signs: Vital Signs Temperature 36.5 C 04/01/25 13:49 Pulse 93 H 04/01/25 13:49 Respiratory Rate 18 04/01/25 13:49 Blood Pressure 90/55 L 04/01/25 13:49 Pulse Oximetry 99 04/01/25 13:49 Temperature 36.5 C 04/01/25 13:49 Pulse 93 H 04/01/25 13:49 Respiratory Rate 18 04/01/25 13:49 Blood Pressure 90/55 L 04/01/25 13:49 Pulse Oximetry 99 04/01/25 13:49 Lab/Test Results Lab/Test Results: 04/01/25 14:31 Blood Blood Culture - Pending 04/01/25 14:31 Blood Blood Culture - Pending Medical Decision Making This is a 59-year-old male with past medical history of large B-cell lymphoma, with an active port, currently supposed to be taking acyclovir and Bactrim, (but he may not be doing this consistently), receiving Bendamustine, and pegfilgrastim CBQB, who presents today from the infusion clinic. Patient states that over the last day or so he has been having chills, increase in urinary frequency, felt that his temperature might of been increasing, that is also had a chronic mild cough. He denies any other symptoms. He denies any chest pain or abdominal pain. At the infusion clinic today he was recommended to come here for further assessment after describing the symptoms to them. He denies any recent tick bites, rashes or lesions. No other complaints at this time. Exam demonstrates well-appearing male, no neck stiffness, vital signs at this time demonstrate slightly low blood pressure, pulse of 93, afebrile. Oxygen saturation is excellent. Differential is broad but includes UTI, less likely prostatitis. Bacteremia and sepsis is of concern. Tickborne illness, pneumonia is also of concern. Will get cultures, evaluate closely and reassess. 5:47 PM Heart rate has improved with small dose of IV fluids, blood pressure remains around 100 systolic over 55. Laboratory workup shows white count of 14.3, notable left shift within absolute neutrophil count of 13.67 with 95% neutrophil predominance. Lactate is normal however the procalcitonin is certainly high at 39.42. Initial x-ray was ordered and showed no evidence of pneumonia. Urinalysis shows no evidence of UTI. COVID flu and RSV are also negative. Out of concern for potential underlying infectious etiology, including undiagnosed pneumonia, CT imaging was ordered. There is evidence of lymphadenopathy, as well as some atelectasis but no large consolidation. No acute abdominal process. I do feel with the patient's age, risk factors, lack of support at home with other individuals, it would be wisest to observe him overnight until blood cultures have had 24 to 48 hours to grow. We will hold on antibiotics at this time. I will add a Legionella testing as well. Tick and Lyme panel has been sent already. Patient remained stable. I did contact the hospitalist Dr. Chaudhary, she agrees with the assessment and plan. I have extensively reviewed the treatment plan with the patient. I have addressed all patient concerns at this time. I have also discussed the plan with the admitting physician and they agree with the current assessment and plan and have agreed to assume responsibility for the patient. All parties demonstrate verbal understanding and agreement with our assessment and plan at this time. The documentation in this chart was dictated using [employer] dictation software. Please excuse any dictation errors. PFSH All Active Problems (Updated 04/01/25 @ 17:51 by Lincoln Mccann DO) Neutrophilia (Acute) Rigors (Acute) COVID (Acute) B-cell lymphoma (Acute) Mass of left axilla (Acute) Lymphadenopathy, generalized (Acute) Medical History Anxiety Flat feet History of shingles 2 years ago Hx of fracture of ankle bilateral reported by patient Insomnia Schizoaffective disorder Surgical History History of open reduction and internal fixation (ORIF) procedure pt. thinks it was his L ankle Social History Smoking/Tobacco Use Status: Former Tobacco Use tobacco type: cigarettes Quit Date: 08/19/96 Smoking risk assessment performed?: Yes Alcohol Intake: never Drug use: Never Substance use type: does not use Details: t-1: wine, 6 oz Housing: house Do you feel safe at home: Yes Do you feel safe in your relationship?: Yes
[2025-04-01 14:52] VITALS: BP 90/55; PULSE 93; RESP 18; TEMP 36.5; O2SAT 99
[2025-04-01 14:58] LABS: Abs Immature Grans 0.07 10^3/uL (0.0-0.06); HCT 26.5 % (40.0-50.0); HGB 9.0 g/dL (13.5-17.5); Immature Grans % 0.5 %; MCH 29.8 pg (27.0-33.0); MCHC 34.0 % (32.0-36.0); MCV 88 fL (80-95); MPV 9.2 fL (8.0-11.0); Platelet Count 249 10^3/uL (130-400); RBC 3.02 10^6/uL (4.36-5.78); RDW 16.6 % (11.8-14.1); RDW-SD 52.3 fL; WBC 14.39 10^3/uL (4.4-10.8)
[2025-04-01] MEDS: Normal Saline 500 ML IV (14:59)
[2025-04-01 15:10] LABS: Glucose Negative (Negative)
[2025-04-01 15:15] LABS: RBC 0-2 HPF (0-2); WBC 0-2 HPF (0-5)
[2025-04-01 15:26] LABS: Procalcitonin 39.42 ng/mL
[2025-04-01 15:27] LABS: ALT 77 U/L (16-63); AST 46 U/L (15-37); Albumin 2.2 g/dL (3.4-5.0); Alkaline Phosphatase 246 U/L (46-116); Anion Gap 7.7 mmol/L (3-11); BUN 15 mg/dL (7-18); Bilirubin, Total 1.8 mg/dL (0.2-1.0); CO2 26.3 mmol/L (21.0-32.0); Calcium 8.3 mg/dL (8.5-10.1); Chloride 96 mmol/L (98-107); Estimated GFR 98.38 (mL/min/1.73m2); Glucose 117 mg/dL (74-106); Potassium 4.1 mmol/L (3.5-5.1); Sodium 130 mmol/L (136-145); Total Protein 5.8 g/dL (6.4-8.2)
[2025-04-01 15:37] LABS: COVID-19 PCR Negative (Negative); RSV PCR Negative (Negative)
--- NOTE | 2025-04-01 15:45 | DI.CT_ITS ---
Exam(s) CT CHEST/ABD/PEL W EXAM: CT CHEST/ABD/PEL W CLINICAL HISTORY: fever of unknown origin, cough, cancer TECHNIQUE: Imaging Protocol: Axial computed tomography images with coronal and sagittal reformatted images were created and reviewed. Lung Computer Aided Detection (CAD) was utilized. CONTRAST MATERIAL: Intravenous: Omnipaque 350 contrast volume:75 mL Oral: No COMPARISON: CT CT CHEST/ABD/PEL WO from 01/05/[address] CHEST/ABD/PEL W from 08/14/[address] NECK W from 01/28/2025 FINDINGS: CHEST: Tracheobronchial tree: Patent where visualized. No evidence of bronchiectasis. Pulmonary parenchyma: No consolidation or dominant measurable mass. There is a calcified granuloma in the left upper lobe. There are no suspicious pulmonary nodules. There is atelectasis in the lung bases. Visualized thyroid gland: Unremarkable. Mediastinum and [place]: Since the prior examination, there has been interval decrease in size of the adenopathy in the upper chest. The previously seen right paratracheal lymph node that measured 2.3 x 1.5 cm, now measures 1.7 x 1.2 cm. (Series 14, image 29). There is subcarinal and right hilar adenopathy present. The lymph node in the right hilum measures 1.8 x 1.5 cm. Subcarinal adenopathy measures 2.9 x 1.7 cm. The esophagus is unremarkable. Pleura: No effusion or pneumothorax. Heart: The heart is not dilated. No coronary artery calcifications are seen. There is a tiny pericardial effusion versus pericardial thickening present. Pulmonary arteries: Due to the timing of the bolus, there is suboptimal opacification of the pulmonary arteries for evaluation of pulmonary emboli. Aorta: Thoracic aorta non-dilated. Lymph nodes: There are enlarged lymph nodes seen in the axilla bilaterally. The largest on the left measures 2.4 x 1.3 cm. The largest on the right measures 2.2 x 1.5 cm. Tubes, Catheters, and Lines: There is a right-sided port in place. Soft tissues: Unremarkable. Bones:Within normal limits for the patient's age. ABDOMEN: Liver: Normal density. The liver is enlarged. There again seen several hypodensities within the liver. They are too small for further characterization but likely reflect small cysts. No suspicious hepatic lesions are seen at this time. Portal, Superior Mesenteric, and Splenic Veins: Unremarkable. Gallbladder and Biliary Tract: Cholelithiasis. No biliary ductal dilatation. Pancreas: Normal density, no abnormal calcifications or inflammatory process. Spleen: Splenomegaly. Adrenals: No masses seen. Kidneys: Normal size, contour and axis. No radiodense stones or obstructive uropathy. No masses seen. Abdominal Aorta: Abdominal portion non-dilated. Mild atherosclerotic calcification is present. Bowel: No obstruction or bowel wall thickening. There is no evidence of appendicitis. There is no pneumatosis. The stomach is incompletely distended limiting evaluation. Peritoneal Cavity: There is a small amount of pelvic ascites. No free air. Lymph Nodes: There are enlarged retroperitoneal lymph nodes. There is bilateral iliac and inguinal adenopathy. There is large massive adenopathy adjacent to the right common iliac vessels measuring 3.4 transverse by 1.7 AP by 5.2 craniocaudad cm. There is a 2.0 x 3.8 cm lymph node adjacent to the right inguinal canal. Bones: Within normal limits for the patient's age. Soft Tissues: Unremarkable. PELVIS: Bladder: There is diffuse thickening of the wall of the urinary bladder. This may be due to underdistention but cystitis cannot be excluded. Reproductive Organs: Unremarkable as visualized. Lymph Nodes: Within normal limits. Bones: Within normal limits. IMPRESSION: 1. There is thoracic adenopathy present. Compared to the CT scan of the neck from 01/28/2025, the visualized lymph nodes have shown interval decrease in size. 2. There is no acute pulmonary process. 3. Para-aortic, iliac and inguinal adenopathy is present. This is consistent with the patient's history of lymphoma. 4. Trace amount of pelvic ascites. 5. Diffuse thickening of the wall of the urinary bladder. This may be due to underdistention, but cystitis cannot be excluded. 6. Hepatosplenomegaly. RADIATION DOSE DELIVERED: 331.44mGy.cm Total DLP DATA REPOSITORY: All CT scans at this facility are submitted to the National Radiology Data Registry (NRDR) Dose Index Registry (DIR) with the [employer] (ACR). RADIATION OPTIMIZATION: All CT scans at this facility use at least one of these dose optimization techniques: automated exposure control; mA and/or kV adjustment per patient size (includes targeted exams where dose is matched to clinical indication); or iterative reconstruction.
[2025-04-01] MEDS: Normal Saline - Diluent 50 ML VIAL IJ (16:13)
[2025-04-01] MEDS: Normal Saline Flush 10 ML SYR IVP (16:14)
[2025-04-01] MEDS: Omnipaque 350 MG/ML 100 ML BTL IJ (16:14)
[2025-04-01 17:17] VITALS: BP 100/55; PULSE 88; RESP 18; O2SAT 99
--- NOTE | 2025-04-01 17:46 | W.PM.HP.N ---
Date of service: 04/01/25 Time of Service: 17:30 Assessment and Plan Assessment and plan (1) Neutrophilia: Status: Acute Assessment and plan: Presentation suspicious for active infection, but no specific symptoms/signs History of shingles Off abx ppx Given elevated procalcitonin and immunocompromised state, will restart bactrim and acyclovir pending blood/urine cultures Monitor for fevers, tachycardia Ordered HIV, HSV, VZV, CMV, tick & lyme, legionella (2) Rigors: Status: Acute Assessment and plan: Presenting symptom PRN tylenol for fever - however, raise concern if he is febrile (3) B-cell lymphoma: Status: Acute Assessment and plan: Care through [facility] not contacted at this time, will try during business hours Apr 02 Multiple cycles of chemo He has an active port History of Present Illness History of Present Illness Chief Complaint: sent in from chemo infusion clinic for chills and cough Narrative: Billy Chapin is a 59 year old man presenting April 01, sent in from infusion clinic for reported chills, increased urinary frequency and cough. He has large B cell lymphoma and is on bendamustine and pelfilgrastim. He had a blood transfusion March 31. He has had an elevated WBC to 17.58 since he started his current course of chemo. His oncologist is at [facility]. He stopped steroids due to psychosis. He stopped acyclovir and bactrim by his own choice. He lives alone and has scant family support during his cancer treatment. No recent outdoor activity, no skin lesions, no chest pain, no shortness of breath, no abdominal pain. In the ED he had nonspecific findings suspicious for infectious process, with raised concern due to held antibiotics. Initially hypotensive 86/53 improving to 100/55. Mildy tachycardia to 93. Afebrile. CXR unremarkable. CT abdomen/pelvis with trace pelvic ascites and diffuse bladder thickening, with adenopathy not worse than previously seen. WBC 14.39, H&H 9.0/26.5. Na 130. Bilirubin elevated 1.8. Mild transaminitis AST 46, ALT 77. Procalcitonin significantly elevated 39.42. PFSH All Active Problems (Updated 04/01/25 @ 17:51 by Lincoln Mccann DO) Neutrophilia (Acute) Rigors (Acute) COVID (Acute) B-cell lymphoma (Acute) Mass of left axilla (Acute) Lymphadenopathy, generalized (Acute) Medical History Anxiety Flat feet History of shingles 2 years ago Hx of fracture of ankle bilateral reported by patient Insomnia Schizoaffective disorder Surgical History History of open reduction and internal fixation (ORIF) procedure pt. thinks it was his L ankle Social History Smoking/Tobacco Use Status: Former Tobacco Use tobacco type: cigarettes Quit Date: 08/19/96 Smoking risk assessment performed?: Yes Alcohol Intake: never Drug use: Never Substance use type: does not use Details: t-1: wine, 6 oz Housing: house Do you feel safe at home: Yes Do you feel safe in your relationship?: Yes Meds Allergies and Home Medications Allergies Allergy/AdvReac Type Severity Reaction Status Date / Time No Known Allergies Allergy Unverified 04/01/25 13:52 Home Medications ?Medication ?Instructions ?Recorded ?Confirmed ?Type multivitamin 1 tab PO DAILY 12/22/21 04/01/25 History allopurinol 300 mg tablet 300 mg PO DAILY 02/27/25 04/01/25 History lenalidomide 20 mg capsule 20 mg PO DAILY 02/27/25 04/01/25 History (Revlimid) Held on 04/01/25. Instructions: Pt Stopped/Never Started lorazepam 1 mg tablet (Ativan) 1 mg PO QHS PRN #5 tabs 02/27/25 04/01/25 Rx prednisone 20 mg tablet 80 mg PO DAILY 02/27/25 04/01/25 History Exam Narrative Exam Narrative: General: This is a pleasant, thin man in no acute distress HEENT: Normocephalic, atraumatic CV: RRR Resp: CTAB Abd: NTND MSK: voluntary motion x4 Neuro: Awake, alert, no focal deficits Results Labs 04/01/25 14:42 04/01/25 14:42 Labs: Laboratory Results - last 24 hr 04/01/25 14:42 WBC 14.39 H RBC 3.02 L Hgb 9.0 L D Hct 26.5 L MCV 88 MCH 29.8 MCHC 34.0 RDW 16.6 H Plt Count 249 MPV 9.2 Immature Gran % 0.5 Neutrophils % 95.0 Lymphocytes % 0.5 Monocytes % 1.9 Eosinophils % 1.9 Basophils % 0.2 Nucleated RBC % 0.0 Absolute Neutrophils 13.67 H Absolute Lymphocytes 0.07 L Absolute Monocytes 0.27 Absolute Eosinophils 0.27 Absolute Basophils 0.03 VBG Lactate 0.9 Sodium 130 L Potassium 4.1 Chloride 96 L Carbon Dioxide 26.3 Anion Gap 7.7 BUN 15 Creatinine 0.9 Est GFR (CKD-EPI 2020) 98.38 Glucose 117 H Calcium 8.3 L Total Bilirubin 1.8 H AST 46 H ALT 77 H Alkaline Phosphatase 246 H Total Protein 5.8 L Albumin 2.2 L Procalcitonin 39.42 Urine Color Yellow Urine Clarity Clear Urine pH 6.5 Ur Specific Hubbard 1.010 Urine Protein Negative Urine Ketones Negative Urine Blood Trace-lysed H Urine Nitrite Negative Urine Bilirubin Negative Urine Urobilinogen 1.0 H Ur Leukocyte Esterase Negative Urine RBC 0-2 Urine WBC 0-2 Ur Epithelial Cells Negative Urine Crystals Negative Urine Bacteria Rare Urine Casts Negative Urine Mucus Negative Ur Culture Indicated? C&S Done As Ordered Urine Glucose Negative COVID-19 Source Nasopharynx SARS-CoV-2 (PCR) Negative Influenza Type A (PCR) Negative Influenza Type B (PCR) Negative RSV (PCR) Negative Last Vital Signs Temp 36.5 C 04/01/25 14:52 Pulse 88 04/01/25 17:17 Resp 18 04/01/25 17:17 BP 100/55 L 04/01/25 17:17 Pulse Ox 99 04/01/25 17:17 Time Spent Time spent with Patient: 40-54 minutes Time was spent: preparing to see the patient(eg.review tests), obtaining and/or reviewing separately otained hiistory, ordering medications,tests, procedures, referring, communicating with other health urgent care physician assistant, indepentently interpreting results, counseling the patient and care coordination
[2025-04-01 18:54] VITALS: BP 94/70; PULSE 96; RESP 14; TEMP 37.1; O2SAT 97
[2025-04-01] MEDS: Sulfameth/Trimeth DS TAB 1 TAB PO (19:02)
[2025-04-01] MEDS: Acyclovir 400 MG TAB PO (19:03)
[2025-04-01 19:45] VITALS: BP 94/70; PULSE 96; RESP 14; TEMP 37.1; O2SAT 97
[2025-04-01 23:21] VITALS: BP 90/50; PULSE 80; RESP 16; TEMP 36.1; O2SAT 96
[2025-04-02 03:07] VITALS: BP 106/71; PULSE 89; RESP 14; TEMP 36.5; O2SAT 99
[2025-04-02] MEDS: Lactated Ringers 1,000 ML 125 ML IV (03:51)
[2025-04-02 06:26] LABS: Abs Immature Grans 0.03 10^3/uL (0.0-0.06); HCT 27.3 % (40.0-50.0); HGB 9.4 g/dL (13.5-17.5); Immature Grans % 0.4 %; MCH 30.7 pg (27.0-33.0); MCHC 34.4 % (32.0-36.0); MCV 89 fL (80-95); MPV 9.4 fL (8.0-11.0); Platelet Count 260 10^3/uL (130-400); RBC 3.06 10^6/uL (4.36-5.78); RDW 17.7 % (11.8-14.1); RDW-SD 57.3 fL; WBC 7.08 10^3/uL (4.4-10.8)
[2025-04-02 06:39] LABS: ALT 63 U/L (16-63); AST 33 U/L (15-37); Albumin 2.0 g/dL (3.4-5.0); Alkaline Phosphatase 203 U/L (46-116); Anion Gap 5.1 mmol/L (3-11); BUN 13 mg/dL (7-18); Bilirubin, Total 0.8 mg/dL (0.2-1.0); CO2 28.9 mmol/L (21.0-32.0); Calcium 8.3 mg/dL (8.5-10.1); Chloride 103 mmol/L (98-107); Estimated GFR 101.95 (mL/min/1.73m2); Glucose 104 mg/dL (74-106); Magnesium 2.2 mg/dL (1.8-2.4); Potassium 4.3 mmol/L (3.5-5.1); Sodium 137 mmol/L (136-145); Total Protein 5.4 g/dL (6.4-8.2)
[2025-04-02 07:00] VITALS: BP 94/63; PULSE 89; RESP 16; TEMP 36.7; O2SAT 100
[2025-04-02] MEDS: Sulfameth/Trimeth DS TAB 1 TAB PO (07:28)
--- NOTE | 2025-04-02 09:22 | PT.INIE ---
PT Notes Visit Reasons: infection in immunocompromise Inpatient Physical Therapy Evaluation Date: 04/02/25 Referring Doctor: Jonny Chaudhary Precautions: Protective precautions Patient Profile/Admitting Diagnosis: Infection, immunocompromised Current Functional Limitations: none Equipment Owned/DME: none Subjective: Pt presented to the ED on 04/01/25 from the infusion center. He had reported chills and a cough. He was found to have a low BP and elevated HR. He currently has B-cell lymphoma and is being followed by the cancer center at [facility]. He has an active port. He states he lives in [place]. He is completely independent. He does not use any form of AD. He manages stairs without any issues. He drives. He has not had any recent falls. He feels fine on his feet. 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 Score: 0% Informed Consent/Education: Patient instructed in purpose of PT consult and plan of care. Assessment: Pt is currently completely independent with all aspects of his mobility. He was able to demonstrate full functional strength as he is able to stand up and sit down from a chair without using his bilat UEs. He demonstrated good balance and a low fall risk as he was able to perform single leg stance for >30 seconds bilaterally. He can ambulate throughout his room independently as needed. He currently is A+Ox4 as well showing full cognition. He can be d/c'd to home safely without any further services when medically cleared. Patient is assessed as a [x] Low 27265 complexity based on the following: History: Low Examination: Low Presentation: Low Decision Making: Low Goals: n/a - pt fully independent Plan of Care/Treatment Plan: No further PT services needed DISCHARGE RECOMMENDATIONS: [x] Home with no services TREATMENT CODE/TIME: Angelo Noriega [id number] x1 - 20 minutes
--- NOTE | 2025-04-02 09:31 | INITIAL_ITS ---
Date of service: 04/02/25 Time of Service: 09:31 [facility] Assessment Reason for Hospitalization: neutrophilia, infection, fever - rigors as presenting symptom. Functional Status/Living Situation Patient Presentation: Billy presented to the ED from the infusion center. He was found to have a high WBC and encouraged to present. He has B-cell lymphoma and was at the center for a chemo treatment. He c/o chills, increased urinary frequency and cough. Billy is followed by [facility]. He apparently stopped some antibiotics on his own. He stated that he does not want to take the antiviral that has been prescribed to him. Provider was seen having a good talk with Billy about his disease process and the need to prevent infections. Billy was discharged home this morning. Billy was asking to go home early this morning. He was up and dressed and in the bedside chair when CM met with him. He does not really have any supports in the community, and he does not work. Billy lives alone. He was encouraged to volunteer or join a group. He will be 60 in October, and was encouraged to contact [facility] at that time to increase some communtiy supports. Town of Residence: [place] Resides with: Alone Significant Other/Family: Out of area (no significant family in the area) Employment Status: Retired (stated that he worked at many jobs) Instrumental Activities of Daily Living (ADLs): Independent Medications Medication Management: Issues/Barriers with Instructions/Directions (stopped course of abx on own) Physical Functioning/Mobility Assistive Device: PT eval today - independent. Advance Directives Advance Directives: Do you have an Advance Directive: N , 23:57 AD On File at [facility]: N 12/15/15, 22:23 Date Asked 04/01/25 04/01/25, 13:33 AD Date Reviewed COLST On File at [facility] COLST Date Scanned Code Status Resuscitation Status Full Code Insurance Coverage/Financial Issues Insurance: /BS [facility] Care Team Visit Care Team Role Provider Type Anaid Johnson Primary Care Provider NON-[facility] STAFF PHYSICIAN InPatient Joao Lauren Other Providers OTHER Lincoln Mccann DO Emergency Provider [facility] STAFF PHYSICIAN Jonny Chaudhary MD Admit Provider [facility] STAFF PHYSICIAN Attending Provider Other: [facility] onc[facility] Discharge Potential Discharge Needs: PCP F/U Appt and Other (oncology f/u) Anticipated Barriers to Discharge: None Identified Patient/Family Education Needs: Review discharge instructions, discuss Ask Me Three Plan: Billy was discharged home today with no new services. He will f/u with his PCP and oncologist and continue per his plan of care. Billy transported himself home. Social Determinants of Health Screening Social Determinants of health last assessed in clinic: 04/02/25 Will the Patient Participate in the Screening?: Yes Do you worry about having a steady place to live?: no Problems where you live: no known problems In the past 12 months, have you had to go without electric, gas, oil or water in your home?: no 1. Within the past 12 months, we worried whether our food would run out before we got money to buy more.: Don't know/refused 2. Within the past 12 months, the food we bought just didn't last and we didn't have money to get more.: Don't know/refused Has lack of transportation kept you from medical appointments or from doing things needed for daily living?: no Has anyone in your life made you feel unsafe or unsupported?: no How hard is it for you to pay for the very basics like food, housing, medical care, and heating? Would you say it is:: Not hard at all Do you want help finding or keeping work or a job?: I do not need or want help If for any reason you need help with day-to-day activities such as bathing, preparing meals, shopping, managing finances, etc., do you get the help you need?: I don?t need any help How often do you feel lonely or isolated from those around you?: Never Do you speak a language other than [place] at home?: No Does the patient want assistance with any of the above?: No Health Related Social Needs Health related social needs details: no further PFSH All Active Problems (Updated 04/01/25 @ 17:51 by Lincoln Mccann DO) Neutrophilia (Acute) Rigors (Acute) COVID (Acute) B-cell lymphoma (Acute) Mass of left axilla (Acute) Lymphadenopathy, generalized (Acute) Medical History Anxiety Flat feet History of shingles 2 years ago Hx of fracture of ankle bilateral reported by patient Insomnia Schizoaffective disorder Surgical History History of open reduction and internal fixation (ORIF) procedure pt. thinks it was his L ankle Social History Smoking/Tobacco Use Status: Former Tobacco Use tobacco type: cigarettes Quit Date: 08/19/96 Smoking risk assessment performed?: Yes Alcohol Intake: never Drug use: Never Substance use type: does not use Details: t-1: wine, 6 oz Housing: house Do you feel safe at home: Yes Do you feel safe in your relationship?: Yes
--- NOTE | 2025-04-02 10:50 | DSE_ITS ---
Date of service: 04/02/25 Time of Service: 10:00 DS: Diagnosis Discharge Diagnosis (1) Neutrophilia: Status: Acute Asessment and Plan: Presentation suspicious for active infection, but no specific symptoms/signs History of shingles Off abx ppx Given elevated procalcitonin and immunocompromised state, will restart bactrim and acyclovir pending blood/urine cultures Monitor for fevers, tachycardia Ordered HIV, HSV, VZV, CMV, tick & lyme, legionella, all pending at time of discharge (2) Rigors: Status: Acute Asessment and Plan: Presenting symptom PRN tylenol for fever - however, raise concern if he is febrile (3) B-cell lymphoma: Status: Acute Asessment and Plan: Care through [facility] Oncology not contacted at this time, will try during business hours Apr 02 Multiple cycles of chemo He has an active port Discharge Plan Disposition Patient Disposition: Home Condition: Fair Discharge Details Reason For Visit: infection in immunocompromise Admit Date/Time: 04/01/25 17:31 Admit Provider: Jonny Chaudhary Attending Provider: Jonny Chaudhary Primary Care Provider: Anaid Johnson [facility] Hospital Course: Billy Chapin is a 59 year old man presenting April 01, sent in from infusion clinic for reported chills, increased urinary frequency and cough. He has large B cell lymphoma and is on bendamustine and pelfilgrastim. He had a blood transfusion March 31. He has had an elevated WBC to 17.58 since he started his current course of chemo. His oncologist is at [facility]. He stopped steroids due to psychosis. He stopped acyclovir and bactrim by his own choice. He lives alone and has scant family support during his cancer treatment. No recent outdoor activity, no skin lesions, no chest pain, no shortness of breath, no abdominal pain. In the ED he had nonspecific findings suspicious for infectious process, with raised concern due to held antibiotics. Initially hypotensive 86/53 improving to 100/55. Mildy tachycardia to 93. Afebrile. CXR unremarkable. CT abdomen/pelvis with trace pelvic ascites and diffuse bladder thickening, with adenopathy not worse than previously seen. WBC 14.39, H&H 9.0/26.5. Na 130. Bilirubin elevated 1.8. Mild transaminitis AST 46, ALT 77. Procalcitonin significantly elevated 39.42. Overnight he did not worsen and did not develop a fever or other evidence of infection. WBC improved. He desires to leave the hospital and will followup with his regular oncologist. He was willing to take bactrim but declined acyclovir; both are re-prescribed for him. Home Meds and New Rx's Prescriptions: New acyclovir 400 mg Tablet 400 mg PO Q12H Qty: 60 0RF sulfamethoxazole-trimethoprim 800-160 mg Tablet 1 tab PO Q12H Qty: 60 0RF Continued multivitamin Tablet 1 tab PO DAILY allopurinol 300 mg tablet 300 mg PO DAILY Patient Comments: TAKE ONE TABLET BY MOUTH EVERY DAY lorazepam [Ativan] 1 mg tablet 1 mg PO QHS PRNQty: 5 0RF Discontinued lenalidomide [Revlimid] 20 mg capsule 20 mg PO DAILY Patient Comments: hasnt started yet prednisone 20 mg tablet 80 mg PO DAILY Patient Comments: TAKE FOUR TABLETS BY MOUTH DAILY FOR 14 DAYS Discharge Instructions Stand Alone Forms: Nursing Discharge Form Referrals: Anaid Johnson [Primary Care Provider, Medicine] - 04/07/25 9:45 am Activity:: Activity as Tolerated Equipment/Supplies:: No Equipment Needed Diet:: As Tolerated Discharge Orders Discharge Orders: Discharge Order (Routine); Ordered 04/02/25 Ordered By: Jonny Chaudhary Discharge Data Discharge Date/Time-TO BE ENTERED AT DEPARTURE: 04/02/25 11:54 DS: Summary Time Spent with Patient providing and/or coordinating discharge services: Greater than 30 minutes Status at Discharge Functional status at discharge: independent ambulation Overall status at discharge: patient is back to baseline Mental Status: mental status grossly normal Speech and Movement: speech and movement normal Mood: congruent mood Affect: normal affect Quality:SDOH Health Related Social Needs: Health related social needs risk of homeless lonely/is olated Health related social needs details no further Health related social needs details: no further Exam Narrative Exam Narrative: General: This is a pleasant, thin man in no acute distress HEENT: Normocephalic, atraumatic CV: RRR Resp: CTAB Abd: NTND MSK: voluntary motion x4 Neuro: Awake, alert, no focal deficits Psych Mental Status: mental status grossly normal Speech and Movement: speech and movement normal Mood: congruent mood Affect: normal affect DS: Data Vitals/I&O Vitals and I&O: Vital Signs Temperature 36.7 C 04/02/25 07:00 Temperature Source Temporal Artery Scan 04/02/25 07:00 Pulse 89 04/02/25 07:00 Pulse Rhythm Regular 04/01/25 21:59 Respiratory Rate 16 04/02/25 07:00 Respiratory Effort Normal, Non-Labored 04/01/25 21:59 Respiratory Depth Normal 04/01/25 21:59 Respiratory Pattern Normal 04/01/25 21:59 Blood Pressure 94/63 L 04/02/25 07:00 Blood Pressure Mean 73 04/02/25 07:00 Pulse Oximetry 100 04/02/25 07:00 Oxygen Delivery Method Room Air 04/02/25 07:00 Oxygen Flow Rate 0 04/02/25 07:00 Pain Level 0 04/02/25 07:00 Intake & Output 04/01/25 04/01/25 04/02/25 11:59 23:59 11:59 Intake Total 500 / 500 Balance 500 / 500 Weight 72.72 kg Intake: IV 500 / 500 Other: Urine Color Yellow Urine Appearance Clear Urine Odor None Data Completed and Pending Labs on day of discharge: Labs from last 24 hours 04/02/25 04/02/25 04/01/25 08:30 05:51 Unknown WBC 7.08 RBC 3.06 L Hgb 9.4 L Hct 27.3 L MCV 89 MCH 30.7 MCHC 34.4 RDW 17.7 H Plt Count 260 MPV 9.4 Immature Gran % 0.4 Neutrophils % 86.9 Lymphocytes % 0.8 Monocytes % 4.0 Eosinophils % 7.6 Basophils % 0.3 Nucleated RBC % 0.0 Absolute Neutrophils 6.15 Absolute Lymphocytes 0.06 L Absolute Monocytes 0.28 Absolute Eosinophils 0.54 Absolute Basophils 0.02 VBG Lactate Sodium 137 Potassium 4.3 Chloride 103 Carbon Dioxide 28.9 Anion Gap 5.1 BUN 13 Creatinine 0.8 Est GFR (CKD-EPI 2020) 101.95 Glucose 104 Calcium 8.3 L Magnesium 2.2 Total Bilirubin 0.8 AST 33 ALT 63 Alkaline Phosphatase 203 H Total Protein 5.4 L Albumin 2.0 L Procalcitonin Urine Color Urine Clarity Urine pH Ur Specific Ramona Urine Protein Urine Ketones Urine Blood Urine Nitrite Urine Bilirubin Urine Urobilinogen Ur Leukocyte Esterase Urine RBC Urine WBC Ur Epithelial Cells Urine Crystals Urine Bacteria Urine Casts Urine Mucus Ur Culture Indicated? Urine Glucose B. divergens/MO-1 PCR Babesia duncani (PCR) Babesia microti DNA PCR Lyme Disease Antibody COVID-19 Source SARS-CoV-2 (PCR) CMV IgM Ab Pending E.chaffeensis DNA (PCR) E.ewingii/canis DNA PCR E.muris eauclairensis (PCR) HSV Source Description Pending HSV I DNA PCR Pending HSV II DNA PCR Pending HIV 1&2 Ag/Ab, 4th Gen HIV 1&2 Antibody Rapid Cancelled Influenza Type A (PCR) Influenza Type B (PCR) Urine Legionella Ag RSV (PCR) VZV Specimen Descript Pending VZV DNA (PCR) Pending A. phagocytophilum (PCR) Blood B. miyamotoi (PCR) 04/01/25 04/01/25 17:56 14:42 WBC 14.39 H RBC 3.02 L Hgb 9.0 L D Hct 26.5 L MCV 88 MCH 29.8 MCHC 34.0 RDW 16.6 H Plt Count 249 MPV 9.2 Immature Gran % 0.5 Neutrophils % 95.0 Lymphocytes % 0.5 Monocytes % 1.9 Eosinophils % 1.9 Basophils % 0.2 Nucleated RBC % 0.0 Absolute Neutrophils 13.67 H Absolute Lymphocytes 0.07 L Absolute Monocytes 0.27 Absolute Eosinophils 0.27 Absolute Basophils 0.03 VBG Lactate 0.9 Sodium 130 L Potassium 4.1 Chloride 96 L Carbon Dioxide 26.3 Anion Gap 7.7 BUN 15 Creatinine 0.9 Est GFR (CKD-EPI 2020) 98.38 Glucose 117 H Calcium 8.3 L Magnesium Total Bilirubin 1.8 H AST 46 H ALT 77 H Alkaline Phosphatase 246 H Total Protein 5.8 L Albumin 2.2 L Procalcitonin 39.42 Urine Color Yellow Urine Clarity Clear Urine pH 6.5 Ur Specific Ramona 1.010 Urine Protein Negative Urine Ketones Negative Urine Blood Trace-lysed H Urine Nitrite Negative Urine Bilirubin Negative Urine Urobilinogen 1.0 H Ur Leukocyte Esterase Negative Urine RBC 0-2 Urine WBC 0-2 Ur Epithelial Cells Negative Urine Crystals Negative Urine Bacteria Rare Urine Casts Negative Urine Mucus Negative Ur Culture Indicated? C&S Done As Ordered Urine Glucose Negative B. divergens/MO-1 PCR Pending Babesia duncani (PCR) Pending Babesia microti DNA PCR Pending Lyme Disease Antibody Pending COVID-19 Source Nasopharynx SARS-CoV-2 (PCR) Negative CMV IgM Ab E.chaffeensis DNA (PCR) Pending E.ewingii/canis DNA PCR Pending E.muris eauclairensis (PCR) Pending HSV Source Description HSV I DNA PCR HSV II DNA PCR HIV 1&2 Ag/Ab, 4th Gen Cancelled HIV 1&2 Antibody Rapid Influenza Type A (PCR) Negative Influenza Type B (PCR) Negative Urine Legionella Ag Pending RSV (PCR) Negative VZV Specimen Descript VZV DNA (PCR) A. phagocytophilum (PCR) Pending Blood B. miyamotoi (PCR) Pending 04/01/25 15:05 Blood Blood Culture - Pending 04/01/25 14:42 Urine - Clean Catch Urine Culture - Pending 04/01/25 14:42 Blood Blood Culture - Pending Preliminary micro results at discharge 04/01/25 15:05 Blood Blood Culture - Pending 04/01/25 14:42 Urine - Clean Catch Urine Culture - Pending 04/01/25 14:42 Blood Blood Culture - Pending PFSH All Active Problems (Updated 04/03/25 @ 00:00 by RICARDO BABIN) Neutrophilia (Acute) Rigors (Acute) COVID (Acute) B-cell lymphoma (Acute) Mass of left axilla (Acute) Lymphadenopathy, generalized (Acute) Medical History Anxiety Flat feet History of shingles 2 years ago Hx of fracture of ankle bilateral reported by patient Insomnia Schizoaffective disorder Surgical History History of open reduction and internal fixation (ORIF) procedure pt. thinks it was his L ankle Social History Smoking/Tobacco Use Status: Former Tobacco Use tobacco type: cigarettes Quit Date: 08/19/96 Smoking risk assessment performed?: Yes Alcohol Intake: never Drug use: Never Substance use type: does not use Details: t-1: wine, 6 oz Housing: house Do you feel safe at home: Yes Do you feel safe in your relationship?: Yes Time Spent with Patient Time Spent with Patient: 45-69 minutes Time was spent: preparing to see the patient(eg.review tests), obtaining and/or reviewing separately otained hiistory, ordering medications,tests, procedures, referring, communicating with other health career coordinator, indepentently interpreting results, counseling the patient and care coordination
[2025-04-02 20:21] LABS: Legionella Ag Detection Urine Negative (Negative)
[2025-04-05 10:52] LABS: CMV Ab, IgM Negative (Negative)
[2025-04-05 10:57] LABS: Lyme Ab w Rflx to Lyme Confirm Negative (Negative)
[2025-04-05 13:12] LABS: B. miyamotoi PCR Negative (Negative); Babesia divergens/MO-1 Negative (Negative); Ehrlichia muris eauclairensis Negative (Negative)
== END 2025-04-02 11:54 | disposition home or self-care (01) ==
LOC: ER 17:54 → MS 18:39
PROVIDERS: Admitting Provider Family Medicine; Emergency Provider Student in an Organized Health Care Education/Training Program; PCP Family Medicine; Responsible Provider Family Medicine; Visit Provider Family Medicine
DX: D72.828 Other elevated white blood cell count (principal); C85.10 Unspecified B-cell lymphoma, unspecified site; R68.89 Other general symptoms and signs; Z79.899 Other long term (current) drug therapy; Z95.828 Presence of other vascular implants and grafts; R35.0 Frequency of micturition; R05.3 Chronic cough; R59.1 Generalized enlarged lymph nodes; F25.9 Schizoaffective disorder, unspecified; G47.00 Insomnia, unspecified; F41.9 Anxiety disorder, unspecified; Z87.891 Personal history of nicotine dependence; D72.829 Elevated white blood cell count, unspecified; I95.9 Hypotension, unspecified; R00.0 Tachycardia, unspecified; R74.01 Elevation of levels of liver transaminase levels
CPT/HCPCS: 00123; 36415; 74177; 80053; 84145; 87040; 87389; 87449; 87529; 87637; 87798; 96360; 96361; 97161; 99285; 71045; 71260; 81003; 81015; 83605; 83735; 85025; 86618; 86645; 87086; 99222; 99239; G0378; J3490

== ENCOUNTER 2025-04-07 08:45 | Outpatient (CLI) | payer BC, SELFPAY ==
[2025-04-07 07:52] LABS: Abs Immature Grans 0.04 10^3/uL (0.0-0.06); HCT 30.0 % (40.0-50.0); HGB 9.8 g/dL (13.5-17.5); Immature Grans % 0.6 %; MCH 30.2 pg (27.0-33.0); MCHC 32.7 % (32.0-36.0); MCV 92 fL (80-95); MPV 8.7 fL (8.0-11.0); Platelet Count 351 10^3/uL (130-400); RBC 3.25 10^6/uL (4.36-5.78); RDW 17.2 % (11.8-14.1); RDW-SD 57.2 fL; WBC 6.48 10^3/uL (4.4-10.8)
[2025-04-07 08:12] LABS: ALT 68 U/L (16-63); AST 31 U/L (15-37); Albumin 2.9 g/dL (3.4-5.0); Alkaline Phosphatase 149 U/L (46-116); Anion Gap 6.1 mmol/L (3-11); BUN 12 mg/dL (7-18); Bilirubin, Total 0.5 mg/dL (0.2-1.0); CO2 31.9 mmol/L (21.0-32.0); Calcium 9.5 mg/dL (8.5-10.1); Chloride 101 mmol/L (98-107); Estimated GFR 101.95 (mL/min/1.73m2); Glucose 108 mg/dL (74-106); LDH 277 U/L (85-227); Potassium 4.2 mmol/L (3.5-5.1); Sodium 139 mmol/L (136-145); Total Protein 6.6 g/dL (6.4-8.2); Uric Acid 3.4 mg/dL (3.5-7.2)
== END 2025-04-07 08:46 | disposition home or self-care (01) ==
LOC: LBO 08:45
PROVIDERS: PCP Family Medicine; Visit Provider Nurse Practitioner Adult Health
DX: C85.80 Other specified types of non-Hodgkin lymphoma, unspecified site (principal); D64.9 Anemia, unspecified
CPT/HCPCS: 36415; 80053; 86850; 86900; 86901; 83615; 84550; 85025

== ENCOUNTER 2025-04-11 17:39 | Emergency (ER) | payer BC, SELFPAY ==
[2025-04-11] VITALS (13 sets, daily range): BP systolic 100–110; BP diastolic 65–67; PULSE 84–102; RESP 14–22; TEMP 37.3; O2SAT 96–100
--- NOTE | 2025-04-11 17:45 | DI.RAD_ITS ---
Exam(s) XR PORTABLE CHEST AP EXAM: XR PORTABLE CHEST AP CLINICAL HISTORY: Malaise TECHNIQUE: 2D digital imaging was performed of the chest. Two images were obtained. AP views were obtained. COMPARISON: CR XR CHEST 2V PA LATERAL from 04/05/[address] CHEST/ABD/PEL W from 04/01/2025 CR XR PORTABLE CHEST AP from 04/01/2025 FINDINGS: MEDIASTINUM: Normal. HEART: Normal. PULMONARY VASCULATURE: Normal. LUNGS: There are no focal consolidating infiltrates present. PLEURAL SPACE: No pleural effusion or pneumothorax. BONE:Within normal limits for the patient's age. OTHER FINDINGS:There is a stable right Zhkrnj-E-Hydo catheter. There again seen surgical clips superior to the left clavicle. IMPRESSION: 1. There are no focal consolidating infiltrates present. 2. The preliminary [facility] report was reviewed. DATA REPOSITORY: RADIATION DOSE DELIVERED:
--- NOTE | 2025-04-11 17:45 | RT.EKG_ITS ---
APPROVED REPORT Exam: Resting ECG Reason for Exam: Malaise Patient Location: E HR:90 bpm ECG Measurements Heart Rate 90 AXIS VT 152 P 71 QRSd 92 QRS 56 QT 360 T 37 QTc 439 Conclusion Sinus rhythm...normal P axis, V-rate 60- 99 Anterior infarct, old...Q >40mS, abnormal ST-T, V2-V5 No STEMI
--- NOTE | 2025-04-11 18:21 | W.ED.GENAD ---
Discharge Plan Disposition Patient Disposition: Home Discharge Details Clinical Impression: Difficulty sleeping, Malaise and fatigue Primary Care Provider: Anaid Johnson ED Provider: Michael Arizmendi Home Meds and New Rx's Prescriptions: Continued multivitamin Tablet 1 tab PO DAILY acyclovir 400 mg Tablet 400 mg PO Q12H Qty: 60 0RF sulfamethoxazole-trimethoprim 800-160 mg Tablet 1 tab PO Q12H Qty: 60 0RF allopurinol 300 mg tablet 300 mg PO DAILY Patient Comments: TAKE ONE TABLET BY MOUTH EVERY DAY lorazepam [Ativan] 1 mg tablet 1 mg PO QHS PRNQty: 5 0RF Discharge Instructions Instructions: Sleep insufficiency Additional Instructions: Please follow-up with your primary care provider regarding your visit to the emergency department today. Be sure to discuss results of all test performed here today to include radiology, and laboratory testing as well as results for any pending cultures. Should your symptoms worsen, or if you develop new concerning symptoms, please return immediately emergency department for further evaluation. HPI General Date/Time Provider Initiated Documentation: 04/11/25 17:49. HPI Narrative: MDM/Narrative: Initial Assessment: 59-year-old male with malaise, undergoing chemotherapy for diffuse large B-cell lymphoma. Not taking acyclovir and prednisone due to complications. Admitted 9 days ago for malaise; reassuring inpatient workup. Differential Diagnosis: - Occult infection Plan: Chest x-ray, urine analysis, labs. - Chemotherapy adverse effects: Tumor lysis? Possible due to current treatment. Plan: Monitor electrolytes and clinical status. - Sleep deprivation: Likely due to reported insomnia. Plan: Resume melatonin 10 mg. ED Course: - Chest x-ray ordered - Urine analysis ordered - Electrolyte panel ordered Final Assessment: Chest x-ray, urine analysis, and electrolyte pane, CBC, all without significant abnormality or findings which would explain the patient's symptoms. Minimal hyperphosphatemia for which patient received IV fluids, no other evidence of tumor lysis syndrome on workup. Plan of care discussed with the patient who is agreeable with plan to starting a sleep journal and to to resume melatonin 10 mg for insomnia as well as follow-up with PCP. Clinical Impression: - Malaise - Insomnia This document was created with assistance from [employer] The patient consented to its use. Disposition: Home HPI: The patient is a 59-year-old male with a diagnosis of diffuse large B-cell lymphoma, currently presenting with malaise. He is undergoing his second cycle of chemotherapy, which includes polatuzumab, bendamustine, and Rituxan. Due to complications, he is not taking acyclovir and prednisone. He was admitted 9 days ago for malaise, and an inpatient workup was negative for acute infection or organ damage. The patient reports experiencing malaise for an extended period. He underwent a blood transfusion two weeks ago, receiving two units of blood. Following the transfusion, he developed thigh pain, which was managed with acetaminophen. He has had a persistent cough since the recurrence of lymphoma, which has been worsening. He has no history of thromboembolic events. He recalls being hospitalized twice three years ago, during which he experienced pyrexia. The patient believes his sleep is insufficient, as evidenced by episodes of excessive daytime sleepiness, including falling asleep while driving. He estimates his nightly sleep duration to be approximately five hours. He consumes more than one cup of coffee daily. He was previously prescribed a hypnotic agent 15 years ago, which he found helpful. He has experienced intermittent fatigue since his last hospitalization. Currently, he reports no pain but notes a slight increase in body temperature to just over 99 degrees Fahrenheit. He has tried melatonin 10 mg for sleep. ROS: Negative besides as mentioned above Exam: Vital signs: Reviewed. General Appearance: Appears fatigued. HEENT: NCAT, EOMI, not icteric. External ears normal. No rhinorrhea. Moist mucous membranes. Neck: Supple, full range of motion, no observable masses, No meningeal sign. Respiratory: No Respiratory distress. No tachypnea. Cardiovascular: RRR, no edema. Gastrointestinal: Soft, nondistended, No rebound tenderness. Back: No midline tenderness to palpation or palpable step-offs of the C/T/L spine. Skin: Warm and dry, no rash. Neurological: Normal Gait, Grossly intact. Psychiatric: Appropriate for situation. Rhythm: NSR Rate: 90 bpm [place]: Normal axis Intervals: Normal intervals, NE 152 ms, QTc 439 ms Other findings: No acute ST segment or T wave changes to suggest acute ischemia. Labs: Laboratory Tests Range/Units 04/11/25 04/11/25 04/11/25 18:14 18:52 19:15 WBC (4.4-10.8) 10^3/uL 4.40 RBC (4.36-5.78) 10^6/uL 3.13 L Hgb (13.5-17.5) g/dL 9.4 L Hct (40.0-50.0) % 28.1 L MCV (80-95) fL 90 MCH (27.0-33.0) pg 30.0 MCHC (32.0-36.0) % 33.5 RDW (11.8-14.1) % 17.1 H Plt Count (130-400) 10^3/uL 276 MPV (8.0-11.0) fL 8.6 Immature Gran % % 0.2 Neutrophils % % 80.8 Lymphocytes % % 7.0 Monocytes % % 9.3 Eosinophils % % 2.0 Basophils % % 0.7 Nucleated RBC % (0.0-0.3) % 0.0 Absolute Neutrophils (1.2-6.7) 10^3/uL 3.55 Absolute Lymphocytes (1.2-3.4) 10^3/uL 0.31 L Absolute Monocytes (0.1-0.8) 10^3/uL 0.41 Absolute Eosinophils (0.0-0.7) 10^3/uL 0.09 Absolute Basophils (0.0-0.2) 10^3/uL 0.03 VBG Lactate (<or=2.0) mmol/L 0.5 Sodium (136-145) mmol/L 137 Potassium (3.5-5.1) mmol/L 4.0 Chloride (98-107) mmol/L 99 Carbon Dioxide (21.0-32.0) mmol/L 30.5 Anion Gap (3-11) mmol/L 7.5 BUN (7-18) mg/dL 12 Creatinine (0.70-1.30) mg/dL 0.8 Est GFR (CKD-EPI 2020) (mL/min/1.73m2) 101.95 Glucose (74-106) mg/dL 111 H Uric Acid (3.5-7.2) mg/dL 4.1 Calcium (8.5-10.1) mg/dL 9.3 Phosphorus (2.6-4.7) mg/dL 5.1 H Magnesium (1.8-2.4) mg/dL 2.1 Total Bilirubin (0.2-1.0) mg/dL 0.6 AST (15-37) U/L 37 ALT (16-63) U/L 58 Alkaline Phosphatase (46-116) U/L 136 H Troponin I (<or=76) ng/L 7 7 Total Protein (6.4-8.2) g/dL 6.8 Albumin (3.4-5.0) g/dL 3.1 L Urine Color (Yellow) Yellow Urine Clarity (Clear) Clear Urine pH (5-8) 7.0 Ur Specific [place] (1.005-1.025) 1.010 Urine Protein (Neg-Trace) mg/dL Negative Urine Ketones (Negative) mg/dL Negative Urine Blood (Negative) Negative Urine Nitrite (Negative) Negative Urine Bilirubin (Negative) Negative Urine Urobilinogen (Up to 0.2) mg/dL 0.2 Ur Leukocyte Esterase (Negative) Negative Urine Glucose (Negative) mg/dL Negative Radiology: Chest x-ray: No acute findings Related Data Home Medications ?Medication ?Instructions ?Recorded ?Confirmed multivitamin 1 tab PO DAILY 12/22/21 04/11/25 allopurinol 300 mg tablet 300 mg PO DAILY 02/27/25 04/11/25 lorazepam 1 mg tablet (Ativan) 1 mg PO QHS PRN #5 tabs 02/27/25 04/11/25 acyclovir 400 mg tablet 400 mg PO Q12H #60 tabs 04/02/25 04/11/25 sulfamethoxazole 800 1 tab PO Q12H #60 tabs 04/02/25 04/11/25 mg-trimethoprim 160 mg tablet Previous Rx's ?Medication ?Instructions ?Recorded lorazepam 1 mg tablet (Ativan) 1 mg PO QHS PRN #5 tabs 02/27/25 acyclovir 400 mg tablet 400 mg PO Q12H #60 tabs 04/02/25 sulfamethoxazole 800 1 tab PO Q12H #60 tabs 04/02/25 mg-trimethoprim 160 mg tablet Allergies Allergy/AdvReac Type Severity Reaction Status Date / Time No Known Allergies Allergy Unverified 04/11/25 17:59 General Stated Complaint: GenMedical MIC: 3 Course Vital Signs Vital signs: Vital Signs Temperature 37.3 C 04/11/25 17:49 Pulse 92 H 04/11/25 17:49 Respiratory Rate 20 04/11/25 17:49 Blood Pressure 100/65 04/11/25 17:49 Pulse Oximetry 96 04/11/25 17:49 Temperature 37.3 C 04/11/25 17:59 Temperature Source Oral 04/11/25 17:59 Pulse 92 H 04/11/25 17:59 Respiratory Rate 20 04/11/25 17:59 Respiratory Effort Normal 04/11/25 18:18 Blood Pressure 100/65 04/11/25 17:59 Blood Pressure Position Sitting 04/11/25 17:59 Pulse Oximetry 96 04/11/25 17:59 Oxygen Delivery Method Room Air 04/11/25 17:59 Medical Decision Making Quality:SDOH Health Related Social Needs: Health related social needs risk of homeless lonely/isolated Health related social needs details no further PFSH All Active Problems (Updated 04/11/25 @ 19:53 by Michael Arizmendi MD) Malaise and fatigue (Acute) Difficulty sleeping (Acute) Neutrophilia (Acute) COVID (Acute) B-cell lymphoma (Acute) Mass of left axilla (Acute) Lymphadenopathy, generalized (Acute) Medical History Anxiety Flat feet History of shingles 2 years ago Hx of fracture of ankle bilateral reported by patient Insomnia Schizoaffective disorder Surgical History History of open reduction and internal fixation (ORIF) procedure pt. thinks it was his L ankle Social History Smoking/Tobacco Use Status: Former Tobacco Use tobacco type: cigarettes Quit Date: 08/19/96 Smoking risk assessment performed?: Yes Alcohol Intake: never Drug use: Never Substance use type: does not use Details: t-1: wine, 6 oz Housing: house Do you feel safe at home: Yes Do you feel safe in your relationship?: Yes
[2025-04-11 18:24] LABS: Abs Immature Grans 0.01 10^3/uL (0.0-0.06); HCT 28.1 % (40.0-50.0); HGB 9.4 g/dL (13.5-17.5); Immature Grans % 0.2 %; MCH 30.0 pg (27.0-33.0); MCHC 33.5 % (32.0-36.0); MCV 90 fL (80-95); MPV 8.6 fL (8.0-11.0); Platelet Count 276 10^3/uL (130-400); RBC 3.13 10^6/uL (4.36-5.78); RDW 17.1 % (11.8-14.1); RDW-SD 55.9 fL; WBC 4.40 10^3/uL (4.4-10.8)
[2025-04-11] MEDS: Normal Saline 1,000 ML 1000 ML IV (18:24)
[2025-04-11 18:39] LABS: Uric Acid 4.1 mg/dL (3.5-7.2)
[2025-04-11 18:44] LABS: ALT 58 U/L (16-63); AST 37 U/L (15-37); Albumin 3.1 g/dL (3.4-5.0); Alkaline Phosphatase 136 U/L (46-116); Anion Gap 7.5 mmol/L (3-11); BUN 12 mg/dL (7-18); Bilirubin, Total 0.6 mg/dL (0.2-1.0); CO2 30.5 mmol/L (21.0-32.0); Calcium 9.3 mg/dL (8.5-10.1); Chloride 99 mmol/L (98-107); Estimated GFR 101.95 (mL/min/1.73m2); Glucose 111 mg/dL (74-106); Magnesium 2.1 mg/dL (1.8-2.4); Potassium 4.0 mmol/L (3.5-5.1); Sodium 137 mmol/L (136-145); Total Protein 6.8 g/dL (6.4-8.2); Troponin I 7 ng/L (<or=76)
[2025-04-11 19:03] LABS: Glucose Negative (Negative)
--- NOTE | 2025-04-11 19:28 | DI.VRAD_ITS ---
PROCEDURE INFORMATION: Exam: XR Chest Exam date and time: 04/11/2025 6:52 PM Age: 59 years old Clinical indication: Other: Malaise TECHNIQUE: Imaging protocol: Radiologic exam of the chest. Views: 1 view. COMPARISON: CT CHEST/ABD/PEL W 01/04/2025 15:58 FINDINGS: Tubes, catheters and devices: Right internal jugular single-lumen, CT compatible Port-A-Cath catheter present with the tip at the level of the cavoatrial junction in good position. Lungs: Surgical clips present at the apex of the left lung. There are mild diffuse interstitial infiltrates present. This may represent cardiogenic versus noncardiogenic edema. An acute inflammatory process and/or infectious process/pneumonia are not excluded. Pleural spaces: Unremarkable. No pleural effusion. No pneumothorax. Heart/Mediastinum: The cardiac structures are normal. The mediastinal contour is normal. Bones/joints: The skeletal structures and soft tissues show no evidence of fracture or other acute processes. Soft tissues: The soft tissues of the extrathoracic region are unremarkable. IMPRESSION: 1. Right internal jugular single-lumen, CT compatible Port-A-Cath catheter present with the tip at the level of the cavoatrial junction in good position. 2. There are mild diffuse interstitial infiltrates present. This may represent cardiogenic versus noncardiogenic edema. An acute inflammatory process and/or infectious process/pneumonia are not excluded. Dictated and Authenticated by: Alexi Cunningham MD. Orderin Kyleigh Rodriguez MD
[2025-04-11 19:42] LABS: Troponin I 7 ng/L (<or=76)
== END 2025-04-11 20:45 | disposition home or self-care (01) ==
PROVIDERS: Emergency Provider General Practice; PCP Family Medicine
DX: R53.81 Other malaise (principal); R53.83 Other fatigue; G47.9 Sleep disorder, unspecified
CPT/HCPCS: 99285; 99283; 36415; 80053; 93005; 96361; 71045; 81003; 83605; 83735; 84100; 84484; 84550; 85025; 93010

== ENCOUNTER 2025-04-14 14:58 | Outpatient (CLI) | payer BC, SELFPAY ==
[2025-04-14 14:19] LABS: Abs Immature Grans 0.01 10^3/uL (0.0-0.06); HCT 27.2 % (40.0-50.0); HGB 8.9 g/dL (13.5-17.5); Immature Grans % 0.2 %; MCH 29.4 pg (27.0-33.0); MCHC 32.7 % (32.0-36.0); MCV 90 fL (80-95); MPV 9.1 fL (8.0-11.0); Platelet Count 235 10^3/uL (130-400); RBC 3.03 10^6/uL (4.36-5.78); RDW 16.5 % (11.8-14.1); RDW-SD 54.4 fL; WBC 4.33 10^3/uL (4.4-10.8)
[2025-04-14 14:47] LABS: ALT 53 U/L (16-63); AST 32 U/L (15-37); Albumin 3.0 g/dL (3.4-5.0); Alkaline Phosphatase 120 U/L (46-116); Anion Gap 5.5 mmol/L (3-11); BUN 10 mg/dL (7-18); Bilirubin, Total 0.7 mg/dL (0.2-1.0); CO2 29.5 mmol/L (21.0-32.0); Calcium 9.1 mg/dL (8.5-10.1); Chloride 101 mmol/L (98-107); Estimated GFR 106.14 (mL/min/1.73m2); Glucose 96 mg/dL (74-106); LDH 230 U/L (85-227); Potassium 3.8 mmol/L (3.5-5.1); Sodium 136 mmol/L (136-145); Total Protein 6.4 g/dL (6.4-8.2); Uric Acid 3.7 mg/dL (3.5-7.2)
== END 2025-04-14 14:59 | disposition home or self-care (01) ==
LOC: LBO 14:58
PROVIDERS: PCP Family Medicine; Visit Provider Internal Medicine Hematology & Oncology
DX: C85.80 Other specified types of non-Hodgkin lymphoma, unspecified site (principal); D64.9 Anemia, unspecified
CPT/HCPCS: 36415; 80053; 86850; 86900; 86901; 83615; 84550; 85025

== ENCOUNTER 2025-04-21 09:44 | Outpatient (CLI) | payer BC, SELFPAY ==
[2025-04-21 07:49] LABS: Abs Immature Grans 0.01 10^3/uL (0.0-0.06); HCT 31.3 % (40.0-50.0); HGB 10.3 g/dL (13.5-17.5); Immature Grans % 0.2 %; MCH 30.1 pg (27.0-33.0); MCHC 32.9 % (32.0-36.0); MCV 92 fL (80-95); MPV 9.3 fL (8.0-11.0); Platelet Count 227 10^3/uL (130-400); RBC 3.42 10^6/uL (4.36-5.78); RDW 15.9 % (11.8-14.1); RDW-SD 52.4 fL; WBC 4.61 10^3/uL (4.4-10.8)
[2025-04-21 08:05] LABS: ALT 37 U/L (16-63); AST 24 U/L (15-37); Albumin 3.0 g/dL (3.4-5.0); Alkaline Phosphatase 127 U/L (46-116); Anion Gap 3.5 mmol/L (3-11); BUN 9 mg/dL (7-18); Bilirubin, Total 0.5 mg/dL (0.2-1.0); CO2 30.5 mmol/L (21.0-32.0); Calcium 9.0 mg/dL (8.5-10.1); Chloride 102 mmol/L (98-107); Estimated GFR 106.14 (mL/min/1.73m2); Glucose 100 mg/dL (74-106); LDH 200 U/L (85-227); Potassium 4.4 mmol/L (3.5-5.1); Sodium 136 mmol/L (136-145); Total Protein 6.6 g/dL (6.4-8.2); Uric Acid 3.6 mg/dL (3.5-7.2)
== END 2025-04-21 09:45 | disposition home or self-care (01) ==
LOC: LBO 09:45
PROVIDERS: PCP Family Medicine; Visit Provider Internal Medicine Hematology & Oncology
DX: C85.80 Other specified types of non-Hodgkin lymphoma, unspecified site (principal); D64.9 Anemia, unspecified
CPT/HCPCS: 36415; 80053; 86850; 86900; 86901; 83615; 84550; 85025

== ENCOUNTER 2025-04-28 04:28 | Outpatient (CLI) | payer BC, SELFPAY ==
[2025-04-28 07:57] LABS: HCT 30.5 % (40.0-50.0); HGB 9.9 g/dL (13.5-17.5); MCH 29.3 pg (27.0-33.0); MCHC 32.5 % (32.0-36.0); MCV 90 fL (80-95); MPV 8.7 fL (8.0-11.0); Platelet Count 249 10^3/uL (130-400); RBC 3.38 10^6/uL (4.36-5.78); RDW 16.2 % (11.8-14.1); RDW-SD 53.8 fL; WBC 13.24 10^3/uL (4.4-10.8)
[2025-04-28 08:05] LABS: Abs Immature Grans 0.00 10^3/uL (0.0-0.06); Immature Grans % 0.0 %; RBC Morphology Normal
[2025-04-28 08:12] LABS: ALT 30 U/L (16-63); AST 19 U/L (15-37); Albumin 2.8 g/dL (3.4-5.0); Alkaline Phosphatase 176 U/L (46-116); Anion Gap 6.7 mmol/L (3-11); BUN 10 mg/dL (7-18); Bilirubin, Total 0.5 mg/dL (0.2-1.0); CO2 30.3 mmol/L (21.0-32.0); Calcium 9.1 mg/dL (8.5-10.1); Chloride 100 mmol/L (98-107); Estimated GFR 86.70 (mL/min/1.73m2); Glucose 136 mg/dL (74-106); LDH 171 U/L (85-227); Potassium 3.9 mmol/L (3.5-5.1); Sodium 137 mmol/L (136-145); Total Protein 6.3 g/dL (6.4-8.2); Uric Acid 6.2 mg/dL (3.5-7.2)
== END 2025-04-28 04:29 | disposition home or self-care (01) ==
LOC: LBO 04:28
PROVIDERS: Internal Medicine Hematology & Oncology; PCP Family Medicine; Visit Provider Nurse Practitioner Adult Health
DX: C85.80 Other specified types of non-Hodgkin lymphoma, unspecified site (principal); D64.9 Anemia, unspecified
CPT/HCPCS: 36415; 80053; 86850; 86900; 86901; 83615; 84550; 85025

== ENCOUNTER 2025-04-30 11:00 | Emergency (ER) | payer BC, SELFPAY ==
[2025-04-30] VITALS (38 sets, daily range): BP systolic 84–107; BP diastolic 35–60; PULSE 85–106; RESP 0–28; TEMP 36.7–38.1; O2SAT 96–100
--- NOTE | 2025-04-30 11:36 | W.ED.GENAD ---
Discharge Plan Disposition Patient Disposition: Home Condition: Stable Discharge Details Clinical Impression: Fever, Malaise and fatigue, B-cell lymphoma Primary Care Provider: Anaid Johnson ED Provider: Yudi Joseph Home Meds and New Rx's Prescriptions: Continued multivitamin Tablet 1 tab PO DAILY acyclovir 400 mg Tablet 400 mg PO Q12H Qty: 60 0RF sulfamethoxazole-trimethoprim 800-160 mg Tablet 1 tab PO Q12H Qty: 60 0RF allopurinol 300 mg tablet 300 mg PO DAILY Patient Comments: TAKE ONE TABLET BY MOUTH EVERY DAY lorazepam [Ativan] 1 mg tablet 1 mg PO QHS PRNQty: 5 0RF Discharge Instructions Instructions: Fever of Unknown Origin (DC) Additional Instructions: As we discussed, your labs and chest x-ray are reassuring here today. No evidence to suggest significant infection. Do not have pneumonia, COVID, urinary tract infection and your neutrophil count, which is the cell count we worry about in people receiving chemotherapy, is normal. Please continue with supportive care including increased hydration, Tylenol as needed for discomfort. I have put in a referral for home health as well as home physical therapy to help with your mobility and remaining safe at home. Please follow-up with your primary care provider next week for reevaluation and meet with your care management team to discuss any further options for support. Please also follow-up with oncology regarding your increased fatigue and fever. If you develop any new or worsening symptoms please seek care urgently once again. Referrals: Anaid Johnson [Primary Care Provider, Medicine] [facility] General Date/Time Provider Initiated Documentation: 04/30/25 11:35. Limitations to Documentation: no limitations. Information obtained by: patient, RN/MD (spoke with cancer center) and RN notes reviewed. History of Present Illness 59 year old M presents to the emergency department with the chief complaint of does not feel well, described as moderate, Patient started experiencing this day(s) and it has been constant. No relieving factors improve symptom(s), No exacerbating factors reported . Patient notes cough, fever/chills, loss of appetite and malaise; denies chest pain, diaphoresis, headaches, nausea/vomiting, rash, shortness of breath, syncope and weakness. Patient did receive the following treatments prior to arrival, none Related Data Home Medications ?Medication ?Instructions ?Recorded ?Confirmed multivitamin 1 tab PO DAILY 12/22/21 04/30/25 allopurinol 300 mg tablet 300 mg PO DAILY 02/27/25 04/30/25 lorazepam 1 mg tablet (Ativan) 1 mg PO QHS PRN #5 tabs 02/27/25 04/30/25 acyclovir 400 mg tablet 400 mg PO Q12H #60 tabs 04/02/25 04/30/25 sulfamethoxazole 800 1 tab PO Q12H #60 tabs 04/02/25 04/30/25 mg-trimethoprim 160 mg tablet Previous Rx's ?Medication ?Instructions ?Recorded lorazepam 1 mg tablet (Ativan) 1 mg PO QHS PRN #5 tabs 02/27/25 acyclovir 400 mg tablet 400 mg PO Q12H #60 tabs 04/02/25 sulfamethoxazole 800 1 tab PO Q12H #60 tabs 04/02/25 mg-trimethoprim 160 mg tablet Allergies Allergy/AdvReac Type Severity Reaction Status Date / Time No Known Allergies Allergy Unverified 04/30/25 12:30 General Stated Complaint: GenMedical MIC: 3 Review of Systems Constitutional Constitutional: Reports as per HPI, Denies chills, Reports daytime sleepiness, Reports fatigue, Reports fever(s), Denies headache(s), Reports lethargy, Reports malaise, Reports poor appetite and Reports weight loss Eyes Eyes: Denies change in vision ENT Ears, Nose, Mouth, and Throat: Denies dizziness and Denies headache(s) Cardiovascular Cardiovascular: Reports as per HPI, Denies dyspnea and Denies dyspnea on exertion Respiratory Respiratory: Reports as per HPI, Denies chest congestion, Denies pain on inspiration, Denies pain with cough, Denies dyspnea and Denies dyspnea on exertion Gastrointestinal Gastrointestinal: Reports as per HPI, Denies abdominal pain, Denies diarrhea, Denies nausea and Denies vomiting Genitourinary Genitourinary: Denies system reviewed and no additional complaints, except as documented (denies change in urinary habits) Musculoskeletal Musculoskeletal: Reports as per HPI and Denies back pain Integumentary/Breasts Skin/Breast: Reports as per HPI and Denies rash Neurologic Neurologic: Reports as per HPI, Denies dizziness and Denies headache(s) Endocrine Endocrine: Reports fatigue Exam Const General: cooperative, healthy appearing (Appears fatigued), comfortable, no acute distress, well developed and anxious Nutritional Appearance: average body habitus and well nourished Orientation: alert, awake and oriented x3 [facility] Mouth: oral mucosae normal, lip normal and tongue normal Throat: posterior oropharynx normal, tonsils normal and uvula midline Eyes General: appearance normal, both eyes and all related structures Neck Neck: normal visual inspection, full ROM and no lymphadenopathy Resp Effort & Inspection: normal respiratory effort, able to speak in complete sentences and no respiratory distress Auscultation: clear to auscultation bilaterally, no rales, no rhonchi and no wheezes Cardio Rate: regular rate Rhythm: regular rhythm Heart Sounds: S1 normal and S2 normal GI Inspection: normal to inspection, no edema and non-distended Palpation: soft, no hepatosplenomegaly, not firm, no guarding, not rigid and nontender Auscultation: normal bowel sounds Back/Spine/Pelvis Back: no CVA tenderness Thoracic/Lumbar Spine: thoracic and lumbar spine normal to inspection Skin General skin exam: no rashes or lesions noted Trauma: no lacerations or abrasions Neuro General: patient alert, patient awake and patient oriented x3 Cognition: normal cognition Speech: speech normal Extrem General: normal to inspection, capillary refill normal, no pedal edema, no calf tenderness and normal gait Course Vital Signs Vital signs: Vital Signs Temperature 38.1 C H 04/30/25 11:13 Pulse 100 H 04/30/25 11:13 Respiratory Rate 04/30/25 11:13 Blood Pressure 101/60 04/30/25 11:13 Pulse Oximetry 98 04/30/25 11:13 Temperature 38.1 C H 04/30/25 11:16 Pulse 100 H 04/30/25 11:16 Respiratory Rate 04/30/25 11:16 Blood Pressure 101/60 04/30/25 11:16 Pulse Oximetry 98 04/30/25 11:16 Pain Level 1 04/30/25 11:16 Medical Decision Making Patient is a 59-year-old gentleman with past medical history significant for large cell lymphoma currently on his third cycle of polatuzumab and nedamustine, first day of rituximab was last week, presenting today with chief complaint of not feeling well and difficulty managing himself at home. He reports that he feels like he is out of control of his body and overall not feeling well. He reports that he has a slight cough. He has had a diminished appetite and feels that his stomach is slightly upset but associates this with diminished appetite and poor p.o. intake. States that he had been feeling well yesterday morning but that beginning last night, he began feeling unwell and noted a low-grade temp at home. States that he has had normal urinary output, no change in this but states that he has had some issues with slight constipation which he has been maintaining himself with MiraLAX. No abdominal pain. No vomiting. Denies any sore throat, congestion or rhinorrhea. On exam, patient appears nontoxic, appears fatigued and frustrated. He does have a temp of 38.1 ?C. Has not taken anything as of yet for his fever today. Will given a dose of acetaminophen. Concern for potential neutropenic fever. Although, when he was checked just 2 days ago his neutrophil count was high at 12, presumed he is receiving supplementation for this. Lungs are clear normal cardiac exam. Normal HEENT exam abdomen is soft and nontender. Obtaining chest x-ray, laboratory evaluation. Patient is difficult to obtain history from, she was very guarded with some of his answers and overall hesitant with medical interventions. We did discuss beginning him on empiric antibiotics with a concern of possible neutropenic fever and patient is hesitant to have anything unnecessarily so we will touch base with his oncology team first. Spoke with oncology, they advised that he is hesitant to have medications, particularly antibiotics. However, they did state that with the medications, it is possible for him to have neutropenic fever and they recommend empiric abx. They also advised that he will often not follow the home medications. Labs reviewed. Patient does have an elevated white count of 14.46. Hemoglobin 9.3. Patient has been anemic recently, likely associated with the chemotherapy. Normal platelet count. His neutrophil is elevated at 13.5. Lactate within normal limits. CMP without significant abnormality. The alk phos was elevated but patient has been elevated historically. No evidence to suggest infection in the urinalysis. COVID-negative. Chest x-ray was reviewed by radiologist and no acute pulmonary findings were noted on the x-ray. I discussed these findings with the patient. Also contacted his oncology team. Patient has been afebrile. He is resting comfortably and feels ready for discharge home. I did have a care management evaluate the patient as well and a home health referral as well as physical therapy was completed. Sounds like support at home is the primary need for the patient. As the patient has no neutropenia, we do not need to treat him for continued neutropenic fever and will stop the antibiotics. I did encourage close follow-up with primary care as well as oncology. Strict return precautions were discussed. All his questions and concerns were addressed and he is in agreement with this plan. Dictation completed using [employer] dictation software. Please excuse any errors or visitor services technician anomalies that may remain. Quality:SDOH Health Related Social Needs: Health related social needs risk of homeless lonely/isolated Health related social needs details no further PFSH All Active Problems (Updated 04/30/25 @ 16:16 by TESSA Smith) Fever (Acute) Malaise and fatigue (Acute) Difficulty sleeping (Acute) Neutrophilia (Acute) COVID (Acute) B-cell lymphoma (Acute) Mass of left axilla (Acute) Lymphadenopathy, generalized (Acute) Medical History Anxiety Flat feet History of shingles 2 years ago Hx of fracture of ankle bilateral reported by patient Insomnia Schizoaffective disorder Surgical History History of open reduction and internal fixation (ORIF) procedure pt. thinks it was his L ankle Social History Smoking/Tobacco Use Status: Former Tobacco Use tobacco type: cigarettes Quit Date: 08/19/96 Smoking risk assessment performed?: Yes Alcohol Intake: never Drug use: Never Substance use type: does not use Details: t-1: wine, 6 oz Housing: house Do you feel safe at home: Yes Do you feel safe in your relationship?: Yes
--- NOTE | 2025-04-30 12:30 | DI.RAD_ITS ---
Exam(s) XR PORTABLE CHEST AP EXAM: XR PORTABLE CHEST AP CLINICAL HISTORY: weakness, cancer pt. TECHNIQUE: 2D digital imaging was performed. COMPARISON: CR,XR XR PORTABLE CHEST AP from 04/11/2025 FINDINGS: Single AP portable view. Distal tip of the right subclavian Port-A-Cath is in the upper right atrium, unchanged. Heart size is upper normal. The mediastinum is not widened. Lungs are clear. No infiltrates nor obvious pleural effusions. No ominous pulmonary nodules. IMPRESSION: No acute pulmonary findings on this single AP portable view of the chest. DATA REPOSITORY: RADIATION DOSE DELIVERED:
[2025-04-30 12:34] LABS: Glucose Negative (Negative)
[2025-04-30 12:41] LABS: Abs Immature Grans 0.12 10^3/uL (0.0-0.06); HCT 28.1 % (40.0-50.0); HGB 9.3 g/dL (13.5-17.5); Immature Grans % 0.8 %; MCH 29.9 pg (27.0-33.0); MCHC 33.1 % (32.0-36.0); MCV 90 fL (80-95); MPV 9.7 fL (8.0-11.0); Platelet Count 253 10^3/uL (130-400); RBC 3.11 10^6/uL (4.36-5.78); RDW 16.3 % (11.8-14.1); RDW-SD 54.5 fL; WBC 14.46 10^3/uL (4.4-10.8)
[2025-04-30] MEDS: ACETAMINOPHEN 1,000 MG/100 ML BAG 400 MG IVPB (12:53)
[2025-04-30] MEDS: Lactated Ringers 500 ML 1000 ML IV (12:54)
[2025-04-30] MEDS: PIPERACILLIN/TAZO 4.5 GM in Normal Saline 100 ML IVPB (12:55)
[2025-04-30 12:57] LABS: ALT 36 U/L (16-63); AST 19 U/L (15-37); Albumin 2.6 g/dL (3.4-5.0); Alkaline Phosphatase 198 U/L (46-116); Anion Gap 8.5 mmol/L (3-11); BUN 11 mg/dL (7-18); Bilirubin, Total 0.5 mg/dL (0.2-1.0); CO2 28.5 mmol/L (21.0-32.0); Calcium 8.8 mg/dL (8.5-10.1); Chloride 98 mmol/L (98-107); Estimated GFR 101.95 (mL/min/1.73m2); Glucose 94 mg/dL (74-106); Magnesium 1.7 mg/dL (1.8-2.4); Potassium 4.0 mmol/L (3.5-5.1); Sodium 135 mmol/L (136-145); Total Protein 6.2 g/dL (6.4-8.2)
[2025-04-30 13:07] LABS: Procalcitonin 0.28 ng/mL
[2025-04-30 14:55] LABS: COVID-19 PCR Negative (Negative)
--- NOTE | 2025-04-30 15:51 | PDOC.CMPRO ---
Date of service: 04/30/25 Time of Service: 16:01 Care Management Progress Note Progress Note Text Progress Note Text: CM was contacted by the ED provider to meet with the patient to discuss additional community support services. Billy was lying in bed and engaged minimally in conversation. He reported being an active patient at the cancer center and shared that ?some days feel harder than others.? He expressed feeling a decline in strength since beginning treatment and conveyed interest in resources that could assist him. CM provided education on home health services, and the patient was agreeable to [facility] and physical therapy support; provider is aware and agreed to place the orders. Educational pamphlets were provided regarding local community resources, including the [place] [facility], [facility] and palliative care services. A referral for a palliative care consult will be placed to establish outpatient support. CM also discussed the availability of social workers at the Oncology Center and provided information about their services. Billy verbalized understanding and stated he plans to follow up with them. CM will continue to follow. Social Determinants of Health Screening Will the Patient Participate in the Screening?: Unable to obtain
--- NOTE | 2025-05-01 09:02 | NUR.NOTE ---
Home Health Face to Face faxed back. Nursing Note:
== END 2025-04-30 16:31 | disposition home or self-care (01) ==
PROVIDERS: Emergency Provider Physician Assistant; PCP Family Medicine
DX: C85.10 Unspecified B-cell lymphoma, unspecified site; R50.9 Fever, unspecified; R53.81 Other malaise; R53.83 Other fatigue; Z59.811 Housing instability, housed, with risk of homelessness; Z60.8 Other problems related to social environment
CPT/HCPCS: 36415; 80053; 84145; 87040; 87635; 96365; 96367; 99284; 71045; 81003; 83605; 83735; 84484; 85025; J0131; J2543

== ENCOUNTER 2025-05-05 02:13 | Outpatient (CLI) | payer BC, SELFPAY ==
[2025-05-05 14:18] LABS: Abs Immature Grans 0.03 10^3/uL (0.0-0.06); HCT 33.0 % (40.0-50.0); HGB 10.9 g/dL (13.5-17.5); Immature Grans % 0.5 %; MCH 29.5 pg (27.0-33.0); MCHC 33.0 % (32.0-36.0); MCV 89 fL (80-95); MPV 9.1 fL (8.0-11.0); Platelet Count 317 10^3/uL (130-400); RBC 3.70 10^6/uL (4.36-5.78); RDW 15.3 % (11.8-14.1); RDW-SD 50.4 fL; WBC 5.50 10^3/uL (4.4-10.8)
[2025-05-05 14:42] LABS: ALT 53 U/L (16-63); Albumin 3.1 g/dL (3.4-5.0); Alkaline Phosphatase 163 U/L (46-116); Anion Gap 5.7 mmol/L (3-11); BUN 12 mg/dL (7-18); Bilirubin, Total 0.6 mg/dL (0.2-1.0); CO2 30.3 mmol/L (21.0-32.0); Calcium 9.1 mg/dL (8.5-10.1); Chloride 99 mmol/L (98-107); Estimated GFR 101.95 (mL/min/1.73m2); Glucose 99 mg/dL (74-106); LDH 176 U/L (85-227); Potassium 4.0 mmol/L (3.5-5.1); Sodium 135 mmol/L (136-145); Total Protein 6.8 g/dL (6.4-8.2); Uric Acid 4.8 mg/dL (3.5-7.2)
[2025-05-05 14:54] LABS: AST 29 U/L (15-37)
== END 2025-05-05 02:14 | disposition home or self-care (01) ==
LOC: LBO 02:13
PROVIDERS: PCP Family Medicine; Visit Provider Internal Medicine Hematology & Oncology
DX: C85.80 Other specified types of non-Hodgkin lymphoma, unspecified site (principal); D64.9 Anemia, unspecified
CPT/HCPCS: 36415; 80053; 86850; 86900; 86901; 83615; 84550; 85025

== ENCOUNTER 2025-06-02 00:02 | Outpatient (CLI) | payer BC, SELFPAY ==
[2025-06-02 07:26] LABS: Abs Immature Grans 0.01 10^3/uL (0.0-0.06); HCT 33.2 % (40.0-50.0); HGB 11.1 g/dL (13.5-17.5); Immature Grans % 0.2 %; MCH 30.4 pg (27.0-33.0); MCHC 33.4 % (32.0-36.0); MCV 91 fL (80-95); MPV 9.0 fL (8.0-11.0); Platelet Count 217 10^3/uL (130-400); RBC 3.65 10^6/uL (4.36-5.78); RDW 16.2 % (11.8-14.1); RDW-SD 54.6 fL; WBC 4.69 10^3/uL (4.4-10.8)
[2025-06-02 07:40] LABS: ALT 36 U/L (16-63); AST 24 U/L (15-37); Albumin 3.2 g/dL (3.4-5.0); Alkaline Phosphatase 104 U/L (46-116); Anion Gap 6.8 mmol/L (3-11); BUN 11 mg/dL (7-18); Bilirubin, Total 0.8 mg/dL (0.2-1.0); CO2 30.2 mmol/L (21.0-32.0); Calcium 8.9 mg/dL (8.5-10.1); Chloride 102 mmol/L (98-107); Estimated GFR 101.95 (mL/min/1.73m2); Glucose 94 mg/dL (74-106); LDH 207 U/L (85-227); Potassium 4.0 mmol/L (3.5-5.1); Sodium 139 mmol/L (136-145); Total Protein 6.7 g/dL (6.4-8.2); Uric Acid 4.6 mg/dL (3.5-7.2)
== END 2025-06-02 00:03 | disposition home or self-care (01) ==
LOC: LBO 00:02
PROVIDERS: Nurse Practitioner Adult Health; PCP Family Medicine; Visit Provider Internal Medicine Hematology & Oncology
DX: C85.80 Other specified types of non-Hodgkin lymphoma, unspecified site (principal); D64.9 Anemia, unspecified
CPT/HCPCS: 36415; 80053; 86850; 86900; 86901; 83615; 84550; 85025

== ENCOUNTER 2025-06-09 09:21 | Outpatient (CLI) | payer BC, SELFPAY ==
[2025-06-09 07:39] LABS: Abs Immature Grans 0.03 10^3/uL (0.0-0.06); HCT 34.9 % (40.0-50.0); HGB 11.4 g/dL (13.5-17.5); Immature Grans % 0.6 %; MCH 29.8 pg (27.0-33.0); MCHC 32.7 % (32.0-36.0); MCV 91 fL (80-95); MPV 8.8 fL (8.0-11.0); Platelet Count 289 10^3/uL (130-400); RBC 3.83 10^6/uL (4.36-5.78); RDW 15.5 % (11.8-14.1); RDW-SD 52.0 fL; WBC 5.05 10^3/uL (4.4-10.8)
[2025-06-09 07:53] LABS: ALT 35 U/L (16-63); AST 22 U/L (15-37); Albumin 3.4 g/dL (3.4-5.0); Alkaline Phosphatase 108 U/L (46-116); Anion Gap 6.6 mmol/L (3-11); BUN 16 mg/dL (7-18); Bilirubin, Total 0.5 mg/dL (0.2-1.0); CO2 32.4 mmol/L (21.0-32.0); Calcium 8.9 mg/dL (8.5-10.1); Chloride 101 mmol/L (98-107); Estimated GFR 101.95 (mL/min/1.73m2); Glucose 79 mg/dL (74-106); LDH 197 U/L (85-227); Potassium 3.8 mmol/L (3.5-5.1); Sodium 140 mmol/L (136-145); Total Protein 6.8 g/dL (6.4-8.2); Uric Acid 5.2 mg/dL (3.5-7.2)
[2025-06-09 09:10] LABS: TSH 4.37 uIU/mL (0.36-3.74)
== END 2025-06-09 09:22 | disposition home or self-care (01) ==
LOC: LBO 09:21
PROVIDERS: PCP Family Medicine; Visit Provider Nurse Practitioner Adult Health
DX: C85.80 Other specified types of non-Hodgkin lymphoma, unspecified site (principal); D64.9 Anemia, unspecified; E06.9 Thyroiditis, unspecified
CPT/HCPCS: 36415; 80053; 86850; 86900; 86901; 83615; 84439; 84443; 84550; 85025

== ENCOUNTER 2025-06-16 08:18 | Outpatient (CLI) | payer BC, SELFPAY ==
[2025-06-16 08:00] LABS: Abs Immature Grans 0.92 10^3/uL (0.0-0.06); HCT 37.7 % (40.0-50.0); HGB 12.1 g/dL (13.5-17.5); MCH 29.8 pg (27.0-33.0); MCHC 32.1 % (32.0-36.0); MCV 93 fL (80-95); MPV 8.8 fL (8.0-11.0); Platelet Count 221 10^3/uL (130-400); RBC 4.06 10^6/uL (4.36-5.78); RDW 16.2 % (11.8-14.1); RDW-SD 55.6 fL; WBC 16.02 10^3/uL (4.4-10.8)
[2025-06-16 08:31] LABS: Immature Grans % 0.0 %
[2025-06-16 08:32] LABS: Hypochromasia 1+
[2025-06-16 08:35] LABS: ALT 31 U/L (16-63); AST 21 U/L (15-37); Albumin 3.6 g/dL (3.4-5.0); Alkaline Phosphatase 212 U/L (46-116); Anion Gap 7.3 mmol/L (3-11); BUN 10 mg/dL (7-18); Bilirubin, Total 0.5 mg/dL (0.2-1.0); CO2 31.7 mmol/L (21.0-32.0); Calcium 9.5 mg/dL (8.5-10.1); Chloride 102 mmol/L (98-107); Estimated GFR 101.95 (mL/min/1.73m2); Glucose 103 mg/dL (74-106); LDH 232 U/L (85-227); Potassium 4.1 mmol/L (3.5-5.1); Sodium 141 mmol/L (136-145); TSH 6.41 uIU/mL (0.36-3.74); Total Protein 7.3 g/dL (6.4-8.2); Uric Acid 7.2 mg/dL (3.5-7.2)
== END 2025-06-16 08:19 | disposition home or self-care (01) ==
LOC: LBO 08:18
PROVIDERS: PCP Family Medicine; Visit Provider Nurse Practitioner Adult Health
DX: E06.9 Thyroiditis, unspecified (principal); C85.80 Other specified types of non-Hodgkin lymphoma, unspecified site; D64.9 Anemia, unspecified
CPT/HCPCS: 36415; 80053; 86850; 86900; 86901; 83615; 84439; 84443; 84550; 85025

== ENCOUNTER 2025-06-22 01:25 | Outpatient (CLI) | payer BC, SELFPAY ==
[2025-06-22 12:41] LABS: Abs Immature Grans 0.06 10^3/uL (0.0-0.06); HCT 34.6 % (40.0-50.0); HGB 11.3 g/dL (13.5-17.5); Immature Grans % 0.6 %; MCH 30.2 pg (27.0-33.0); MCHC 32.7 % (32.0-36.0); MCV 93 fL (80-95); MPV 9.6 fL (8.0-11.0); Platelet Count 206 10^3/uL (130-400); RBC 3.74 10^6/uL (4.36-5.78); RDW 15.3 % (11.8-14.1); RDW-SD 51.9 fL; WBC 10.20 10^3/uL (4.4-10.8)
[2025-06-22 13:46] LABS: Iron 24 ug/dL (65-175); Total Iron Binding Capacity 211 ug/dL (250-450); Transferrin Sat 11 % (20-55)
[2025-06-22 13:48] LABS: ALT 43 U/L (16-63); AST 30 U/L (15-37); Albumin 3.2 g/dL (3.4-5.0); Alkaline Phosphatase 180 U/L (46-116); Anion Gap 6.4 mmol/L (3-11); BUN 16 mg/dL (7-18); Bilirubin, Total 1.0 mg/dL (0.2-1.0); CO2 32.6 mmol/L (21.0-32.0); Calcium 8.8 mg/dL (8.5-10.1); Chloride 98 mmol/L (98-107); Glucose 82 mg/dL (74-106); LDH 172 U/L (85-227); Potassium 4.2 mmol/L (3.5-5.1); Sodium 137 mmol/L (136-145); Total Protein 6.2 g/dL (6.4-8.2); Uric Acid 4.6 mg/dL (3.5-7.2)
[2025-06-22 14:10] LABS: Ferritin 695 ng/mL (26-388)
[2025-06-23 13:07] LABS: Albumin 56.9 % (55.8-66.1); Albumin g/dL 3.5 g/dL (3.6-5.2); Alpha 1 g/dL 0.50 g/dL (0.15-0.40); Alpha 2 g/dL 0.70 g/dL (0.50-1.00); Beta g/dL 0.70 g/dL (0.60-1.20); Gamma g/dL 0.80 g/dL (0.60-1.60); Total Protein 6.1 g/dL (6.3-8.2)
== END 2025-06-22 01:26 | disposition home or self-care (01) ==
LOC: LBO 01:25
PROVIDERS: PCP Family Medicine; Visit Provider Internal Medicine Hematology & Oncology
DX: D50.0 Iron deficiency anemia secondary to blood loss (chronic) (principal)
CPT/HCPCS: 36415; 80053; 86850; 86900; 86901; 82728; 83540; 83550; 83615; 84165; 84550; 85025

== ENCOUNTER 2025-06-23 10:18 | Observation (INO) | payer BC, SELFPAY ==
[2025-06-23] VITALS (19 sets, daily range): BP systolic 92–134; BP diastolic 56–86; PULSE 95–115; RESP 13–25; TEMP 36.4–38.9; O2SAT 95–99
--- NOTE | 2025-06-23 11:00 | DI.CT_ITS ---
Exam(s) CT CHEST W EXAM: CT CHEST W CLINICAL HISTORY: lymphoma/chemo/ left ac joint pain 36 cellulitis. TECHNIQUE: Multi planar reconstructions were performed. CONTRAST MATERIAL: Omnipaque 350; 75 cc COMPARISON: CT CT CHEST/ABD/PEL W from 04/01/2025 FINDINGS: CHEST: LUNGS: There are no lung infiltrates nor pleural effusions nor ominous pulmonary nodules. No significant findings in the trachea and mainstem bronchi. MEDIASTINUM: There is no hilar nor mediastinal adenopathy. No subcarinal adenopathy. Fatty lymph nodes are noted in both axillary regions. No obvious supraclavicular adenopathy. Visualized thyroid gland appears unremarkable. CARDIAC: Heart size is normal. There is no pericardial effusion.Caliber of the thoracic aorta is within normal limits. No evidence of dissection. Distal tip of the Port-A-Cath is in the upper right atrium VISUALIZED UPPER ABDOMEN:Splenomegaly. Hypodensities are noted in the liver which appear mostly cystic although 1 which is in the posterior right hepatic lobe and subcapsular in location has appearance of a probable hemangioma. In addition, the lower most hypodensity in the right hepatic lobe has increased in size from 04/01/2025, previously measuring 6 millimeters and presently measuring 14 mm. This may be significant given the medical history here. There are no adrenal masses. OSSEOUS: No fractures. No significant osseous lesions. Surgical clips are noted in the left supraclavicular region. The ipsilateral clavicle and AC joint appear unremarkable.. IMPRESSION: 1. No significant pulmonary findings 2. Incidental abdominal findings as above which are significant. 3. No suspicious findings in the region of the left acromioclavicular joint as per request. There are surgical clips in the left supraclavicular region from prior biopsy. z Report called by myself to ER provider 11 [phone] 25 at 11:50 a.m. RADIATION DOSE DELIVERED: 373.3mGy.cm Total DLP DATA REPOSITORY: All CT scans at this facility are submitted to the National Radiology Data Registry (NRDR) Dose Index Registry (DIR) with the [employer] (ACR). RADIATION OPTIMIZATION: All CT scans at this facility use at least one of these dose optimization techniques: automated exposure control; mA and/or kV adjustment per patient size (includes targeted exams where dose is matched to clinical indication); or iterative reconstruction.
[2025-06-23 11:17] LABS: Abs Immature Grans 0.07 10^3/uL (0.0-0.06); HCT 35.2 % (40.0-50.0); HGB 11.3 g/dL (13.5-17.5); Immature Grans % 0.6 %; MCH 29.7 pg (27.0-33.0); MCHC 32.1 % (32.0-36.0); MCV 92 fL (80-95); MPV 9.8 fL (8.0-11.0); Platelet Count 243 10^3/uL (130-400); RBC 3.81 10^6/uL (4.36-5.78); RDW 15.2 % (11.8-14.1); RDW-SD 51.8 fL; WBC 11.84 10^3/uL (4.4-10.8)
[2025-06-23 11:18] LABS: ESR 26 mm/hr (0-20)
[2025-06-23] MEDS: Normal Saline - Diluent 50 ML VIAL IJ (11:38)
[2025-06-23] MEDS: Omnipaque 350 MG/ML 100 ML BTL IJ (11:38)
[2025-06-23] MEDS: Normal Saline Flush 10 ML SYR IVP (11:39)
[2025-06-23 11:45] LABS: ALT 69 U/L (16-63); AST 47 U/L (15-37); Albumin 3.4 g/dL (3.4-5.0); Alkaline Phosphatase 233 U/L (46-116); Anion Gap 7.3 mmol/L (3-11); BUN 11 mg/dL (7-18); Bilirubin, Total 0.5 mg/dL (0.2-1.0); C-Reactive Protein 12.62 mg/dL (<or=0.5); CO2 30.7 mmol/L (21.0-32.0); Calcium 9.2 mg/dL (8.5-10.1); Chloride 100 mmol/L (98-107); Glucose 98 mg/dL (74-106); Potassium 4.3 mmol/L (3.5-5.1); Sodium 138 mmol/L (136-145); Total Protein 7.4 g/dL (6.4-8.2)
[2025-06-23] MEDS: cefTRIAXone 2 GM/50 ML BAG IVPB (11:45)
--- NOTE | 2025-06-23 12:15 | RT.EKG_ITS ---
APPROVED REPORT Exam: Resting ECG Reason for Exam: fatigue Patient Location: E HR:102 bpm ECG Measurements Heart Rate 102 AXIS GA 164 P 74 QRSd 76 QRS 34 QT 328 T 58 QTc 428 Conclusion Sinus tachycardia...rate> 99 Consider anteroseptal infarct...Q >30mS, dimin R, V1-V2 No Occlusion ND
[2025-06-23] MEDS: VANCOMYCIN/WATER (PEG) 1.5 GM/300 ML BAG IVPB (12:23)
--- NOTE | 2025-06-23 12:29 | W.ED.GENAD ---
Discharge Plan Disposition Patient Disposition: Admit to [facility] Condition: Stable Discharge Details Clinical Impression: Elevated LFTs, Rash, Left shoulder pain Admit Date/Time: 06/23/25 12:43 Admit Provider: Raphael Burkett Attending Provider: Raphael Burkett Primary Care Provider: Anaid Johnson ED Provider: Shauna Butterfield Discharge Data Discharge Date/Time-TO BE ENTERED AT DEPARTURE: 06/23/25 13:48 HPI General Date/Time Provider Initiated Documentation: 06/23/25 10:40. HPI Narrative: This 59-year-old gentleman with history of B-cell lymphoma currently on cycle 4 last received regimen 2 weeks prior to arrival today in the emergency department. Was sent up from [facility] out of concern for some shoulder pain and diffuse rash. Patient states he feels tired and has had some intermittent chills but denies fever at home. He did take Tylenol at 8:00 this morning. He denies any difficulty swallowing pruritus to rash, chest pain or new shortness of breath,tick bites. He denies history of similar symptoms in the past. He denies any illicit substance use. States rash is localized to his thorax. Denies headache, nausea, vomiting. Denies any new medications although he states he is been on intermittent antibiotics secondary to recurrent cellulitis. Related Data Home Medications Medication Instructions Recorded Confirmed multivitamin 1 tab PO DAILY 12/22/21 06/23/25 Allergies Allergy/AdvReac Type Severity Reaction Status Date / Time No Known Allergies Allergy Unverified 06/23/25 10:39 General Stated Complaint: GenMedical MIC: 3 Exam Narrative Exam Narrative: Alert and oriented 59-year-old male in no acute distress, lungs clear to auscultation, extensive rash across entire upper portion of the anterior thorax extending into the upper portion of the posterior thorax, nontender, erythema macular tenderness over AC joint but no tenderness with range of motion of left shoulder no palpable abscess no palpable drainage collection over port right side of chest oropharynx patent no meningismus, answering questions appropriately Course Vital Signs Vital signs: Vital Signs Temperature 36.6 C 06/23/25 10:32 Pulse 98 H 06/23/25 10:32 Respiratory Rate 18 06/23/25 10:32 Blood Pressure 126/77 06/23/25 10:32 Pulse Oximetry 98 06/23/25 10:32 Temperature 36.6 C 06/23/25 10:32 Temperature Source Tympanic 06/23/25 10:32 Pulse 98 H 06/23/25 10:32 Respiratory Rate 18 06/23/25 10:32 Blood Pressure 126/77 06/23/25 10:32 Pulse Oximetry 98 06/23/25 10:32 Oxygen Delivery Method Room Air 06/23/25 10:32 Oxygen Flow Rate 0 06/23/25 10:32 Pain Level 2 06/23/25 10:32 Lab/Test Results Lab/Test Results: 06/23/25 11:50 Blood Blood Culture - Pending 06/23/25 10:57 Blood Blood Culture - Pending Laboratory Tests Range/Units 06/23/25 11:05 WBC (4.4-10.8) 10^3/uL 11.84 H RBC (4.36-5.78) 10^6/uL 3.81 L Hgb (13.5-17.5) g/dL 11.3 L Hct (40.0-50.0) % 35.2 L MCV (80-95) fL 92 MCH (27.0-33.0) pg 29.7 MCHC (32.0-36.0) % 32.1 RDW (11.8-14.1) % 15.2 H Plt Count (130-400) 10^3/uL 243 MPV (8.0-11.0) fL 9.8 Immature Gran % % 0.6 Neutrophils % % 92.0 Lymphocytes % % 1.0 Monocytes % % 3.6 Eosinophils % % 2.4 Basophils % % 0.4 Nucleated RBC % (0.0-0.3) % 0.0 Absolute Neutrophils (1.2-6.7) 10^3/uL 10.89 H Absolute Lymphocytes (1.2-3.4) 10^3/uL 0.12 L Absolute Monocytes (0.1-0.8) 10^3/uL 0.43 Absolute Eosinophils (0.0-0.7) 10^3/uL 0.28 Absolute Basophils (0.0-0.2) 10^3/uL 0.05 ESR (0-20) mm/hr 26 H VBG Lactate (<or=2.0) mmol/L 0.9 Sodium (136-145) mmol/L 138 Potassium (3.5-5.1) mmol/L 4.3 Chloride (98-107) mmol/L 100 Carbon Dioxide (21.0-32.0) mmol/L 30.7 Anion Gap (3-11) mmol/L 7.3 BUN (7-18) mg/dL 11 Creatinine (0.70-1.30) mg/dL 0.6 L Est GFR (CKD-EPI 2020) (mL/min/1.73m2) 111.20 Glucose (74-106) mg/dL 98 Calcium (8.5-10.1) mg/dL 9.2 Total Bilirubin (0.2-1.0) mg/dL 0.5 AST (15-37) U/L 47 H ALT (16-63) U/L 69 H Alkaline Phosphatase (46-116) U/L 233 H C-Reactive Protein (<or=0.5) mg/dL 12.62 H Total Protein (6.4-8.2) g/dL 7.4 Albumin (3.4-5.0) g/dL 3.4 Medical Decision Making Results: I have outside count 16,000 yesterday 11,000 today lymphopenia at 0.12 ESR mildly elevated at 26 CRP of 12 mild elevation in transaminases at 47 and [address] chest does not show significant acute abnormality although patient does have an enlarging cyst on his right liver that will need to be followed up in the outpatient setting by oncology Assessment and plan: Patient presenting with rash which is extensive to his upper thorax with some pain in the AC joint region. His CT is reassuring his inflammatory markers are quite elevated as a CRP of 12. I will start broad-spectrum antibiotics with ceftriaxone and vancomycin at this time and admit patient for observation. I did not order blood cultures from port as this is less likely to be the source based on assessment and the cellulitis or skin rash extends over the port site. Patient is agreeable to admission at this time. He has not been febrile although has been endorsing intermittent chills and does feel tired. I will order an EKG for completeness although patient does not have chest pain. Patient is agreeable to mission for observation at this time. Quality:SDOH Health Related Social Needs: Health related social needs risk of homeless lonely/isolated Health related social needs details no further PFSH All Active Problems (Updated 06/24/25 @ 08:25 by TESSA Huff) Elevated LFTs (Acute) Left shoulder pain (Acute) Rash (Acute) Neutrophilia (Acute) COVID (Acute) B-cell lymphoma (Acute) Mass of left axilla (Acute) Lymphadenopathy, generalized (Acute) Medical History Anxiety Flat feet History of shingles 2 years ago Hx of fracture of ankle bilateral reported by patient Insomnia Schizoaffective disorder Surgical History History of open reduction and internal fixation (ORIF) procedure pt. thinks it was his L ankle Social History Smoking/Tobacco Use Status: Former Tobacco Use tobacco type: cigarettes Quit Date: 08/19/96 Smoking risk assessment performed?: Yes Alcohol Intake: never Drug use: Never Substance use type: does not use Details: t-1: wine, 6 oz Housing: house Do you feel safe at home: Yes Do you feel safe in your relationship?: Yes
--- NOTE | 2025-06-23 13:06 | HPE_ITS ---
Date of service: 06/23/25 Time of Service: 13:30 Assessment and Plan Assessment and plan (1) Rash: Status: Acute Assessment and plan: unclear etiology, D/dx includes but is not limited to: chemo drug related rash, viral exanthem, cellulitis. -plan to d/c vanco and ceftriaxone, start doxycycline to cover MRSA/cellulitis and probable tick borne illness (2) Fever: Status: Inactive Assessment and plan: d/dx includes tick borne illness, viral illness, cellulitis -plan to d/c vanco and ceftriaxone, start doxycycline to cover MRSA/cellulitis and probable tick borne illness (3) Left shoulder pain: Status: Acute Assessment and plan: -Reassuring physical exam. No red flags concerning for septic joint or other intra-articular infectious process. (4) Elevated LFTs: Status: Acute Assessment and plan: -AST 47, ALT 69, Alk Phosph 233. -Recommend continued monitoring with bloodwork and imaging on an outpatient basis, especially in light of increased hypodensities in liver since 04/01/25. (5) B-cell lymphoma: Status: Acute Assessment and plan: -continue treatment plan with [facility] oncology History of Present Illness Narrative: Billy is a 59 year old male with history of B-cell Lymphoma and anemia who presented to the emergency dept today for evaluation of rash to upper body and L AC/shoulder pain. He is 2 weeks s/p most recent chemotherapy infusion (on cycle 4, not sure which regimen he is on). First noticed redness to his L hand a few weeks ago accompanying a skin lesion that resembled an insect bite, says it was treated with antibiotics for presumed cellulitis (not sure which antibiotics he was prescribed). Developed a rash to his upper chest and back approx 10 days ago, accompanied by discomfort to the clavicle/L shoulder. He reports fatigue and intermittant chills x 5-6 days, but denies recorded fever, headache, difficulty swallowing, pruritis or pain to rash, chest pain, shortness of breath, n/v, numbness/tingling to arm, decreased ROM to arm, lymph node swelling. Denies recent exposures such as ill contacts, tick bites, recent medication changes, or illicit drug use. He is on intermittant abx due to history of recurrent cellulitis. No history of similar symptoms in the past. Overall workup in ED reassuring. Pt does not meet SIRS criteria. Mild leukocytosis noted, with WBC 11.84 (slightly increased since yesterday, 10.20). Mild anemia, unchanged from baseline. Inflammatory markers slightly elevated, ESR 26 and CRP 12.62. LFTs elevated above baseline, AST 47, ALT 69, Alk Phosp 233. CMP otherwise unremarkable. Lactate 0.9. Chest CT performed, hypodensities noted in the liver (with one in right hepatic lobe noted to have interval increase in size from 04/01/25 from 6mm to 14mm). Pt was initiated on ceftriaxone and vancomycin, to be admitted for cellulitis. On arrival to [facility] unit, Billy is reporting shaking chills and generalized discomfort. Temp 102, tylenol given for fever with good improvement of symptoms. Denies significant PMH other than b-cell lymphoma. PFSH All Active Problems (Updated 06/23/25 @ 13:29 by Katherine Goddard) Elevated LFTs (Acute) Left shoulder pain (Acute) Rash (Acute) Neutrophilia (Acute) COVID (Acute) B-cell lymphoma (Acute) Mass of left axilla (Acute) Lymphadenopathy, generalized (Acute) Medical History Anxiety Flat feet History of shingles 2 years ago Hx of fracture of ankle bilateral reported by patient Insomnia Schizoaffective disorder Surgical History History of open reduction and internal fixation (ORIF) procedure pt. thinks it was his L ankle Social History Smoking/Tobacco Use Status: Former Tobacco Use tobacco type: cigarettes Quit Date: 08/19/96 Smoking risk assessment performed?: Yes Alcohol Intake: never Drug use: Never Substance use type: does not use Details: t-1: wine, 6 oz Housing: house Do you feel safe at home: Yes Do you feel safe in your relationship?: Yes Meds Allergies and Home Medications Allergies Allergy/AdvReac Type Severity Reaction Status Date / Time No Known Allergies Allergy Unverified 06/23/25 10:39 Home Medications Medication Instructions Recorded Confirmed Type multivitamin 1 tab PO DAILY 12/22/2101/10 History Exam Const General: cooperative, comfortable, no acute distress, well developed and well hydrated Nutritional Appearance: average body habitus and well nourished Orientation: alert and oriented x3 HENMT Head: normal to inspection Face and sinus: normal facial exam Resp Effort & Inspection: normal respiratory effort and able to speak in complete sentences Auscultation: clear to auscultation bilaterally Cardio Rate: regular rate Rhythm: regular rhythm Pulses: radial pulses present GI Inspection: normal to inspection and non-distended Palpation: soft, not firm, no guarding, not rigid and nontender Skin Rashes: rashes noted (flat, erythematous, blanching rash to upper trunk and L hand, warm to touch) Wounds: no wounds Neuro General: patient alert, patient oriented x3, gait normal, tone normal, moves all extremities and no focal motor deficits Cranial Nerves: facial strength normal Cognition: normal cognition Speech: speech normal Gait: normal gait Motor: muscle tone normal throughout Extrem General: normal to inspection, full ROM, no joint enlargement, no pedal edema and normal gait Right upper extremity: normal to inspection Left upper extremity: normal to inspection, full ROM, normal capillary refill and shoulder/upper arm Details: inspection abnormal, axillary nerve sensory function normal and normal ROM; no tenderness, no swelling, no crepitus and no deformity Results Imaging Imaging Studies: Exam(s) a CT:CT chest w Exam(s) CT CHEST W EXAM: CT CHEST W CLINICAL HISTORY: lymphoma/chemo/ left ac joint pain 36 cellulitis. TECHNIQUE: Multi planar reconstructions were performed. CONTRAST MATERIAL: Omnipaque 350; 75 cc COMPARISON: CT CT CHEST/ABD/PEL W from 04/01/2025 FINDINGS: CHEST: LUNGS: There are no lung infiltrates nor pleural effusions nor ominous pulmonary nodules. No significant findings in the trachea and mainstem bronchi. MEDIASTINUM: There is no hilar nor mediastinal adenopathy. No subcarinal adenopathy. Fatty lymph nodes are noted in both axillary regions. No obvious supraclavicular adenopathy. Visualized thyroid gland appears unremarkable. CARDIAC: Heart size is normal. There is no pericardial effusion.Caliber of the thoracic aorta is within normal limits. No evidence of dissection. Distal tip of the Port-A-Cath is in the upper right atrium VISUALIZED UPPER ABDOMEN:Splenomegaly. Hypodensities are noted in the liver which appear mostly cystic although 1 which is in the posterior right hepatic lobe and subcapsular in location has appearance of a probable hemangioma. In addition, the lower most hypodensity in the right hepatic lobe has increased in size from 04/01/2025, previously measuring 6 millimeters and presently measuring 14 mm. This may be significant given the medical history here. There are no adrenal masses. OSSEOUS: No fractures. No significant osseous lesions. Surgical clips are noted in the left supraclavicular region. The ipsilateral clavicle and AC joint appear unremarkable.. IMPRESSION: 1. No significant pulmonary findings 2. Incidental abdominal findings as above which are significant. 3. No suspicious findings in the region of the left acromioclavicular joint as per request. There are surgical clips in the left supraclavicular region from prior biopsy. z Labs 06/24/25 06:21 06/23/25 11:05 Labs: Laboratory Results - last 24 hr 06/23/25 11:05 WBC 11.84 H RBC 3.81 L Hgb 11.3 L Hct 35.2 L MCV 92 MCH 29.7 MCHC 32.1 RDW 15.2 H Plt Count 243 MPV 9.8 Immature Gran % 0.6 Neutrophils % 92.0 Lymphocytes % 1.0 Monocytes % 3.6 Eosinophils % 2.4 Basophils % 0.4 Nucleated RBC % 0.0 Absolute Neutrophils 10.89 H Absolute Lymphocytes 0.12 L Absolute Monocytes 0.43 Absolute Eosinophils 0.28 Absolute Basophils 0.05 ESR 26 H VBG Lactate 0.9 Sodium 138 Potassium 4.3 Chloride 100 Carbon Dioxide 30.7 Anion Gap 7.3 BUN 11 Creatinine 0.6 L Est GFR (CKD-EPI 2020) 111.20 Glucose 98 Calcium 9.2 Total Bilirubin 0.5 AST 47 H ALT 69 H Alkaline Phosphatase 233 H C-Reactive Protein 12.62 H Total Protein 7.4 Albumin 3.4 Last Vital Signs Temp 99.4 F 06/23/25 12:47 Pulse 106 H 06/23/25 12:46 Resp 14 06/23/25 12:47 BP 134/86 06/23/25 12:46 Pulse Ox 99 06/23/25 12:40 Time Spent Time spent with Patient: >75 minutes Time was spent: preparing to see the patient(eg.review tests), obtaining and/or reviewing separately otained hiistory, ordering medications,tests, procedures, referring, communicating with other health intensive care medicine specialist, indepentently interpreting results, counseling the patient and care coordination
--- NOTE | 2025-06-23 13:36 | W.PC.ACHO ---
Registration Status: REG ER Primary Language: Preferred Language: Nepali ED Information & Data Chief Complaint GenMedical 06/23/25 12:37 Triage Note pt was seen at [facility] 06/23/25 10:32 cancer center this morning pt c/o pain in left shoulder and redness on chest and body pt took 325 tylenal around 8am Medical / Surgical History (Last Reviewed 04/06/22 @ 09:32 by Nelson Huizar NP) Hx of fracture of ankle Anxiety Flat feet Insomnia History of shingles Schizoaffective disorder (Last Reviewed 04/06/22 @ 09:32 by Nelson Huizar NP) History of open reduction and internal fixation (ORIF) procedure Most Recent Vital Signs Temperature 37.4 C 06/23/25 12:47 Temperature Source Tympanic 06/23/25 10:32 Pulse 106 H 06/23/25 12:46 Pulse 104 H 06/23/25 12:47 Respiratory Rate 14 06/23/25 12:47 Respiratory Effort Normal 06/23/25 11:00 Respiratory Depth Normal 06/23/25 11:00 Respiratory Pattern Normal 06/23/25 11:00 Blood Pressure 134/86 06/23/25 12:46 Blood Pressure Mean 100 06/23/25 12:46 Pulse Oximetry 99 06/23/25 12:40 Oxygen Delivery Method Room Air 06/23/25 10:32 Oxygen Flow Rate 0 06/23/25 10:32 Pain Level 2 06/23/25 11:00 Allergies No Known Allergies Allergy (Unverified 06/23/25 10:39) Active Medications Generic Name Dose Route Start Last Admin Trade Name Freq PRN Reason Stop Dose Admin Vancomycin/PEG/NADA/Lysine/Water 1.5 gm in 300 mls @ 200 mls/hr 06/23/25 12:15 06/23/25 12:23 Vancocin Injection IVPB 06/23/25 13:44 200 mls/hr NOW ONE Administration Iohexol 100 ml 06/23/25 11:45 06/23/25 11:38 Omnipaque 350 Mg/Ml 100 Ml Btl IJ 07/23/25 23:59 100 ml DIRECTED YURI Administration Sodium Chloride 0 ml 06/23/25 11:36 06/23/25 11:39 Normal Saline Flush 10 Ml Syr IVP 10 ml PRN PRN Administration Sodium Chloride 50 ml 06/23/25 11:45 06/23/25 11:38 Normal Saline - Diluent 50 Ml Vial IJ 50 ml DIRECTED YURI Administration IV IV Catheter Type [Right Saline Lock Forearm] IV Catheter Gauge [Right 18 Forearm] Diagnostics 06/23/25 Range/Units 11:05 WBC 11.84 H (4.4-10.8) 10^3/uL RBC 3.81 L (4.36-5.78) 10^6/uL Hgb 11.3 L (13.5-17.5) g/dL Hct 35.2 L (40.0-50.0) % MCV 92 (80-95) fL MCH 29.7 (27.0-33.0) pg MCHC 32.1 (32.0-36.0) % RDW 15.2 H (11.8-14.1) % Plt Count 243 (130-400) 10^3/uL MPV 9.8 (8.0-11.0) fL Immature Gran % 0.6 % Neutrophils % 92.0 % Lymphocytes % 1.0 % Monocytes % 3.6 % Eosinophils % 2.4 % Basophils % 0.4 % Nucleated RBC % 0.0 (0.0-0.3) % Absolute Neutrophils 10.89 H (1.2-6.7) 10^3/uL Absolute Lymphocytes 0.12 L (1.2-3.4) 10^3/uL Absolute Monocytes 0.43 (0.1-0.8) 10^3/uL Absolute Eosinophils 0.28 (0.0-0.7) 10^3/uL Absolute Basophils 0.05 (0.0-0.2) 10^3/uL ESR 26 H (0-20) mm/hr VBG Lactate 0.9 (<or=2.0) mmol/L Sodium 138 (136-145) mmol/L Potassium 4.3 (3.5-5.1) mmol/L Chloride 100 (98-107) mmol/L Carbon Dioxide 30.7 (21.0-32.0) mmol/L Anion Gap 7.3 (3-11) mmol/L BUN 11 (7-18) mg/dL Creatinine 0.6 L (0.70-1.30) mg/dL Est GFR (CKD-EPI 2020) 111.20 (mL/min/1.73m2) Glucose 98 (74-106) mg/dL Calcium 9.2 (8.5-10.1) mg/dL Total Bilirubin 0.5 (0.2-1.0) mg/dL AST 47 H (15-37) U/L ALT 69 H (16-63) U/L Alkaline Phosphatase 233 H (46-116) U/L C-Reactive Protein 12.62 H (<or=0.5) mg/dL Total Protein 7.4 (6.4-8.2) g/dL Albumin 3.4 (3.4-5.0) g/dL B. divergens/MO-1 PCR Pending Babesia duncani (PCR) Pending Babesia microti DNA PCR Pending Lyme Disease Antibody Pending E.chaffeensis DNA (PCR) Pending E.ewingii/canis DNA PCR Pending E.muris eauclairensis (PCR) Pending A. phagocytophilum (PCR) Pending Blood B. miyamotoi (PCR) Pending 06/23/25 11:50 Blood Culture - Pending Blood 06/23/25 10:57 Blood Culture - Pending Blood Intake and Output - 24 Hour Total 06/23/25 10:18 thru 06/23/25 12:23 Intake Total 50 Balance 50 Weight 70.307 kg Intake: IV 50 Falls Risk Assessment History of Falls No History 06/23/25 11:00 Contributing Factors No Factors 06/23/25 11:00 Ambulatory Aids Independent 06/23/25 11:00 Tubes/Lines None 06/23/25 11:00 Gait Evaluation No gait disturbance 06/23/25 11:00 Cognition No cognitive impairment 06/23/25 11:00 Fall Total Score 0 06/23/25 11:00 Level of Risk Standard/Low Risk 06/23/25 11:00 v v v v v v v v v Sending and/or Receiving Nurses: Please use comment section below to note any information pertinent to the patient hand-off not included above. Information / Comments: Called ED at 1322 for report, received for Melchor, patient admitted for possible/ questionable rash/ infection. Tachycardic. NSR, VSS, no distress, pain 2 no intervention. independent in ED room.awaiting patient to arrive to unit Report received from:
[2025-06-23] MEDS: Acetaminophen 500 MG TAB 1000 MG PO (14:39)
[2025-06-23 14:53] LABS: COVID-19 PCR Negative (Negative); RSV PCR Negative (Negative)
--- NOTE | 2025-06-23 16:27 | NUR.NOTE ---
Patient arrived to unit from ED , settle to room, call santos. approximately 1410 this RN went to start admission and assessment. Patient immediately started asking this RN I need my tylenol now, I am in pain this RN started to explain to patient our admission process, review of medical orders and that I will get him is Tylenol as soon as the MD orders it since at time of assessment Tylenol order was not in place. Patient proceeded to raise his voice and stated I am not up for talking to you, you are not giving me the care I expect to receive. I am not repeating myself, I already talk to the MD and staff there, you go and get the information you need from them patient proceeded to look the other way and would not speak to this RN. only part of assessment this RN did was inspect his skin and marked redness noted.
[2025-06-23] MEDS: Doxycycline Hyclate 100 MG CAP PO (20:32)
[2025-06-24 02:08] VITALS: BP 111/69; PULSE 94; RESP 16; TEMP 36.6; O2SAT 97
[2025-06-24] MEDS: Acetaminophen 325 MG TAB 650 MG PO ×2 (04:10→06:24)
[2025-06-24 06:52] LABS: HCT 33.5 % (40.0-50.0); HGB 11.2 g/dL (13.5-17.5); MCH 30.4 pg (27.0-33.0); MCHC 33.4 % (32.0-36.0); MCV 91 fL (80-95); MPV 9.6 fL (8.0-11.0); Platelet Count 230 10^3/uL (130-400); RBC 3.68 10^6/uL (4.36-5.78); RDW 15.3 % (11.8-14.1); RDW-SD 51.0 fL; WBC 10.36 10^3/uL (4.4-10.8)
[2025-06-24 07:06] LABS: Anion Gap 7.9 mmol/L (3-11); BUN 11 mg/dL (7-18); CO2 29.1 mmol/L (21.0-32.0); Calcium 9.1 mg/dL (8.5-10.1); Chloride 103 mmol/L (98-107); Glucose 98 mg/dL (74-106); Magnesium 1.9 mg/dL (1.8-2.4); Potassium 4.1 mmol/L (3.5-5.1); Sodium 140 mmol/L (136-145)
--- NOTE | 2025-06-24 07:26 | PGE_ITS ---
Date of Service Date of service: 06/24/25 Time of Service: 07:30 Assessment and Plan Assessment and plan (1) Rash: Status: Acute Assessment and plan: -improving today. unclear etiology, D/dx includes but is not limited to: chemo drug related rash, viral exanthem, cellulitis. -plan to d/c vanco and ceftriaxone, start doxycycline to cover MRSA/cellulitis and probable tick borne illness (2) Fever: Status: Inactive Assessment and plan: resolved since initiation of abx (3) Left shoulder pain: Status: Acute Assessment and plan: -Discomfort well controlled with tylenol. Reassuring physical exam. Likely tendonitis or other soft tissue injury. No red flags concerning for septic joint or other intra-articular infectious process. (4) Elevated LFTs: Status: Acute Assessment and plan: -AST 47, ALT 69, Alk Phosph 233. -Recommend continued monitoring with bloodwork and imaging on an outpatient basis, especially in light of increased hypodensities in liver since 04/01/25. (5) B-cell lymphoma: Status: Acute Assessment and plan: -[place] [facility] [place] Subjective Subjective Interval history since last seen: Billy reports he is overall feeling better today, has noted improved energy and appetite. Says that his shoulder is feeling more comfortable, pain well controlled with tylenol. Feels redness in hand is improving as well. Denies fever/chills, body aches, general malaise, chest pain, shortness of breath, abdominal pain. Has not had a BM today, last was yesterday. Exam Const General: cooperative, comfortable, no acute distress, well developed and well hydrated Nutritional Appearance: average body habitus and well nourished Orientation: alert and oriented x3 [facility] Head: normal to inspection Face and sinus: normal facial exam Resp Effort & Inspection: normal respiratory effort and able to speak in complete sentences Auscultation: clear to auscultation bilaterally Cardio Rate: regular rate Rhythm: regular rhythm Pulses: radial pulses present GI Inspection: normal to inspection and non-distended Palpation: soft, not firm, no guarding, not rigid and nontender Skin Rashes: rashes noted (improved today only mild erythema to upper trunk and L hand) Wounds: no wounds Neuro General: patient alert, patient oriented x3, gait normal, tone normal, moves all extremities and no focal motor deficits Cranial Nerves: facial strength normal Cognition: normal cognition Speech: speech normal Gait: normal gait Motor: muscle tone normal throughout Extrem General: normal to inspection, full ROM, no joint enlargement, no pedal edema and normal gait Right upper extremity: normal to inspection Left upper extremity: normal to inspection, full ROM, normal capillary refill and shoulder/upper arm Details: inspection abnormal, axillary nerve sensory function normal and normal ROM; no tenderness, no swelling, no crepitus and no deformity Objective Last Vital Signs Temp 97.9 F 06/24/25 02:08 Pulse 94 H 06/24/25 02:08 Resp 16 06/24/25 02:08 BP 111/69 06/24/25 02:08 Pulse Ox 97 06/24/25 02:08 Laboratory Results - last 24 hr 06/23/25 06/23/25 06/24/25 11:05 12:00 06:21 WBC 11.84 H 10.36 RBC 3.81 L 3.68 L Hgb 11.3 L 11.2 L Hct 35.2 L 33.5 L MCV 92 91 MCH 29.7 30.4 MCHC 32.1 33.4 RDW 15.2 H 15.3 H Plt Count 243 230 MPV 9.8 9.6 Immature Gran % 0.6 Neutrophils % 92.0 Lymphocytes % 1.0 Monocytes % 3.6 Eosinophils % 2.4 Basophils % 0.4 Nucleated RBC % 0.0 Absolute Neutrophils 10.89 H Absolute Lymphocytes 0.12 L Absolute Monocytes 0.43 Absolute Eosinophils 0.28 Absolute Basophils 0.05 ESR 26 H VBG Lactate 0.9 Sodium 138 140 Potassium 4.3 4.1 Chloride 100 103 Carbon Dioxide 30.7 29.1 Anion Gap 7.3 7.9 BUN 11 11 Creatinine 0.6 L 0.7 Est GFR (CKD-EPI 2020) 111.20 106.14 Glucose 98 98 Calcium 9.2 9.1 Magnesium 1.9 Total Bilirubin 0.5 AST 47 H ALT 69 H Alkaline Phosphatase 233 H C-Reactive Protein 12.62 H Total Protein 7.4 Albumin 3.4 COVID-19 Source Nasopharynx SARS-CoV-2 (PCR) Negative Influenza Type A (PCR) Negative Influenza Type B (PCR) Negative RSV (PCR) Negative
[2025-06-24 07:58] VITALS: BP 106/85; PULSE 93; RESP 17; TEMP 36.6; O2SAT 98
[2025-06-24] MEDS: Doxycycline Hyclate 100 MG CAP PO (09:12)
[2025-06-24] MEDS: Multivitamin TAB 1 TAB PO (09:16)
--- NOTE | 2025-06-24 09:32 | PDOC.CMIN ---
Date of service: 06/24/25 Time of Service: 09:32 Care Management Initial Assmt Initial Assessment Reason for Hospitalization: Rash Functional Status/Living Situation Patient Presentation: Billy was sitting in a chair when CM met with him. He was polite, and engages in conversation, though communication required extra time due to the pace of his speech. Billy lives alone in [facility] [place], he drives and is independent at baseline. He has B-Cell Lymphoma and goes [facility] for Chemo. He does not have any local family or children but does have supportive neighbors who assist with transportation to the cancer ctr. Per Billy, he has seen a psychiatric social worker for many years, but no other community support or services, nor does he feel like the support is needed. However, he did accept a brouchure for [employer], should any community needs arise. Town of Residence: [facility] Resides with: Alone Natural Supports: Supportive Neighbors No local family or friends Employment Status: Disabled Instrumental Activities of Daily Living (ADLs): Independent Medications Medication Management: No Issues/Barriers identified Physical Functioning/Mobility Assistive Device: None Advance Directives Advance Directives: Do you have an Advance Directive: N 12/15/15, 23:57 AD On File at [facility]: N 12/15/15, 22:23 Date Asked 06/23/25 Today, 07:24 AD Date Reviewed COLST On File at [facility] No 04/11/25, 17:48 COLST Date Scanned Code Status Resuscitation Status Full Code Portal Pt does not currently have a portal and education provided: Yes Insurance Coverage/Financial Issues Insurance: /[facility] - [id number] Care Team Visit Care Team Role Provider Type Anaid Johnson Primary Care Provider NON-[facility] STAFF PHYSICIAN TESSA Huff Emergency Provider [employer] SUPERVISOR Raphael Burkett MD Admit Provider [facility] STAFF PHYSICIAN Attending Provider Discharge Potential Discharge Needs: PCP F/U Appt and Other Anticipated Barriers to Discharge: None Identified Patient/Family Education Needs: Review discharge instructions, discuss Ask Me Three Transportation: Private vehicle Plan: Billy will be discharged once medically cleared. He will follow up with community providers and continue per his discharge plan of care. No new services are anticipated at this time. Social Determinants of Health Screening Will the Patient Participate in the Screening?: Declined to provide PFSH All Active Problems (Updated 06/24/25 @ 08:25 by TESSA Huff) Elevated LFTs (Acute) Left shoulder pain (Acute) Rash (Acute) Neutrophilia (Acute) COVID (Acute) B-cell lymphoma (Acute) Mass of left axilla (Acute) Lymphadenopathy, generalized (Acute) Medical History Anxiety Flat feet History of shingles 2 years ago Hx of fracture of ankle bilateral reported by patient Insomnia Schizoaffective disorder Surgical History History of open reduction and internal fixation (ORIF) procedure pt. thinks it was his L ankle Social History Smoking/Tobacco Use Status: Former Tobacco Use tobacco type: cigarettes Quit Date: 08/19/96 Smoking risk assessment performed?: Yes Alcohol Intake: never Drug use: Never Substance use type: does not use Details: t-1: wine, 6 oz Housing: house Do you feel safe at home: Yes Do you feel safe in your relationship?: Yes
--- NOTE | 2025-06-24 11:07 | DSE_ITS ---
Date of service: 06/24/25 Time of Service: 11:07 DS: Diagnosis Discharge Diagnosis (1) Rash: Status: Acute (2) Fever: Status: Inactive (3) Left shoulder pain: Status: Acute (4) Elevated LFTs: Status: Acute (5) B-cell lymphoma: Status: Acute Discharge Plan Disposition Patient Disposition: Home Condition: Good Discharge Details Reason For Visit: Rash Admit Date/Time: 06/23/25 12:43 Admit Provider: Raphael Burkett Attending Provider: Raphael Burkett Primary Care Provider: Anaid Johnson [facility] Course Hospital Course: Patient initially presented to the hospital from the cancer center with ongoing rash over his upper chest and back. Patient did not have leukocytosis (if anything his white count went down from 7 days prior from 16-11.8). Patient did have elevated CRP of 12.6, and did have elevated AST ALT and alk phos (though is only slightly higher from baseline other than secondary to chemotherapy). While rash did not completely look like cellulitis, there was also concern for potential tickborne disease, and drug reaction secondary to chemotherapy is also on the differential given the patient stated he believes rash started few days after last chemo treatment. However, patient was started on doxycycline in the event this was an atypical presentation of cellulitis or tickborne illness (tick panel has been sent, currently pending). Overnight patient had significant improvement and almost complete resolution of his rash. Given that he noted significant improvement then did not have any concerns for severe systemic illness was determined he was stable for discharge home and will continue with additional 9 days of p.o. doxycycline. Home Meds and New Rx's Prescriptions: New doxycycline hyclate 100 mg Capsule 100 mg PO BID Qty: 18 0RF Continued multivitamin Tablet 1 tab PO DAILY Discharge Instructions Stand Alone Forms: Portal Information Activity:: Activity as Tolerated Equipment/Supplies:: No Equipment Needed Diet:: As Tolerated Discharge Orders Discharge Orders: Discharge Order (Routine); Ordered 06/24/25 Ordered By: Raphael Burkett DS: Summary Time Spent with Patient providing and/or coordinating discharge services: Greater than 30 minutes Status at Discharge Functional status at discharge: independent ambulation Overall status at discharge: patient is back to baseline Mental Status: mental status grossly normal Speech and Movement: speech and movement normal Mood: congruent mood Affect: normal affect Quality:SDOH Health Related Social Needs: Health related social needs risk of homeless lonely/is olated Health related social needs details no further Exam Narrative Exam Narrative: Well appearing gentleman sitting up in the chair in no acute distress, AOx4, heart RRR, lungs CTAB, abdomen soft, non-tender, non-distended, almost complete resolution of upper chest/back rash Psych Mental Status: mental status grossly normal Speech and Movement: speech and movement normal Mood: congruent mood Affect: normal affect DS: Data Vitals/I&O Vitals and I&O: Vital Signs Temperature 97.9 F 06/24/25 07:58 Temperature Source Tympanic 06/24/25 07:58 Pulse 93 H 06/24/25 07:58 Pulse 115 H 06/23/25 13:30 Respiratory Rate 17 06/24/25 07:58 Respiratory Effort Normal 06/23/25 11:00 Respiratory Depth Normal 06/23/25 11:00 Respiratory Pattern Normal 06/23/25 11:00 Blood Pressure 106/85 06/24/25 07:58 Blood Pressure Mean 92 06/24/25 07:58 Pulse Oximetry 98 06/24/25 07:58 Oxygen Delivery Method Room Air 06/24/25 07:58 Oxygen Flow Rate 0 06/24/25 07:58 Pain Level 7 06/23/25 14:39 Intake & Output 06/23/25 06/24/25 06/24/25 17:59 05:59 17:59 Intake Total 350 / 350 480 / 480 Output Total 400 / 400 700 / 1100 300 / 300 Balance -50 / -50 -700 / -750 180 / 180 Weight 155 lb Intake: IV 350 / 350 Oral 480 / 480 Output: Urine 400 / 400 700 / 1100 300 / 300 Other: Urine Color Yellow Urine Appearance Clear Clear Urine Odor Strong Comment Patient up ad cathy and voiding independently in toilet. Data Completed and Pending Pending Labs at Discharge: 06/23/25 06/23/25 06/24/25 11:05 12:00 06:21 WBC 11.84 H 10.36 RBC 3.81 L 3.68 L Hgb 11.3 L 11.2 L Hct 35.2 L 33.5 L MCV 92 91 MCH 29.7 30.4 MCHC 32.1 33.4 RDW 15.2 H 15.3 H Plt Count 243 230 MPV 9.8 9.6 Immature Gran % 0.6 Neutrophils % 92.0 Lymphocytes % 1.0 Monocytes % 3.6 Eosinophils % 2.4 Basophils % 0.4 Nucleated RBC % 0.0 Absolute Neutrophils 10.89 H Absolute Lymphocytes 0.12 L Absolute Monocytes 0.43 Absolute Eosinophils 0.28 Absolute Basophils 0.05 ESR 26 H VBG Lactate 0.9 Sodium 138 140 Potassium 4.3 4.1 Chloride 100 103 Carbon Dioxide 30.7 29.1 Anion Gap 7.3 7.9 BUN 11 11 Creatinine 0.6 L 0.7 Est GFR (CKD-EPI 2020) 111.20 106.14 Glucose 98 98 Calcium 9.2 9.1 Magnesium 1.9 Total Bilirubin 0.5 AST 47 H ALT 69 H Alkaline Phosphatase 233 H C-Reactive Protein 12.62 H Total Protein 7.4 Albumin 3.4 B. divergens/MO-1 PCR Pending Babesia duncani (PCR) Pending Babesia microti DNA PCR Pending Lyme Disease Antibody Pending COVID-19 Source Nasopharynx SARS-CoV-2 (PCR) Negative E.chaffeensis DNA (PCR) Pending E.ewingii/canis DNA PCR Pending E.muris eauclairensis (PCR) Pending Influenza Type A (PCR) Negative Influenza Type B (PCR) Negative RSV (PCR) Negative A. phagocytophilum (PCR) Pending Blood B. miyamotoi (PCR) Pending Preliminary micro results at discharge 06/23/25 11:05 Blood Blood Culture - Pending 06/23/25 11:50 Blood Blood Culture - Pending [facility] All Active Problems (Updated 06/24/25 @ 08:25 by TESSA Huff) Elevated LFTs (Acute) Left shoulder pain (Acute) Rash (Acute) Neutrophilia (Acute) COVID (Acute) B-cell lymphoma (Acute) Mass of left axilla (Acute) Lymphadenopathy, generalized (Acute) Medical History Anxiety Flat feet History of shingles 2 years ago Hx of fracture of ankle bilateral reported by patient Insomnia Schizoaffective disorder Surgical History History of open reduction and internal fixation (ORIF) procedure pt. thinks it was his L ankle Social History Smoking/Tobacco Use Status: Former Tobacco Use tobacco type: cigarettes Quit Date: 08/19/96 Smoking risk assessment performed?: Yes Alcohol Intake: never Drug use: Never Substance use type: does not use Details: t-1: wine, 6 oz Housing: house Do you feel safe at home: Yes Do you feel safe in your relationship?: Yes Time Spent with Patient Time Spent with Patient: <45 minutes Time was spent: preparing to see the patient(eg.review tests), obtaining and/or reviewing separately otained hiistory, ordering medications,tests, procedures, referring, communicating with other health point of care technician, indepentently interpreting results, counseling the patient and care coordination
[2025-06-24 11:10] VITALS: BP 112/87; PULSE 88; RESP 17; TEMP 35.9; O2SAT 97
--- NOTE | 2025-06-24 11:51 | CMDISCH_ITS ---
Date of service: 06/24/25 Time of Service: 11:51 LACE Index Scoring Tool Questions: Length of Stay (in days): 1 Was the patient admitted via the E.D.?: Yes E.D. Visits: 5 Answers: Total Score: 8 Risk of Readmission: Low Risk Care Management Discharge Plan Reason for Hospitalization: Rash Discharge Plan: Billy is discharged home via private vehicle. He will follow up with community providers and continue per his discharge plan of care as directed. No new services are indicated at the time of this discharge. Patient/Family Education Needs: Review discharge instructions and plan to follow up with community providers. Discuss ask me three. SDOH Health Related Social Needs: Health related social needs risk of homeless lonely/is olated Health related social needs details no further
[2025-06-24 11:56] LABS: Lyme Ab w Rflx to Lyme Confirm Positive (Negative)
[2025-06-24 13:48] LABS: Lyme IgG Ab Positive (Negative)
[2025-06-26 16:19] LABS: B. miyamotoi PCR Negative (Negative); Babesia divergens/MO-1 Negative (Negative); Ehrlichia muris eauclairensis Negative (Negative)
== END 2025-06-24 12:28 | disposition home or self-care (01) ==
LOC: ER 13:17 → MS 14:58
PROVIDERS: Admitting Provider Family Medicine; Emergency Provider Physician Assistant; PCP Family Medicine; Responsible Provider Family Medicine; Visit Provider Family Medicine
DX: L03.114 Cellulitis of left upper limb (principal); M25.512 Pain in left shoulder; R79.89 Other specified abnormal findings of blood chemistry; C85.10 Unspecified B-cell lymphoma, unspecified site; R50.9 Fever, unspecified; R74.8 Abnormal levels of other serum enzymes; D64.9 Anemia, unspecified; Z79.899 Other long term (current) drug therapy; F41.9 Anxiety disorder, unspecified; F25.9 Schizoaffective disorder, unspecified; G47.00 Insomnia, unspecified; R16.1 Splenomegaly, not elsewhere classified; K76.89 Other specified diseases of liver
CPT/HCPCS: 00123; 36415; 80048; 80053; 85027; 85652; 86617; 87040; 87637; 87798; 93005; 96365; 96367; 99285; 71260; 83605; 83735; 85025; 86140; 86618; 93010; 99223; 99239; G0378; J0696; J3373; J3490

== ENCOUNTER 2025-06-30 11:06 | Outpatient (CLI) | payer BC, SELFPAY ==
[2025-06-30 11:22] LABS: Abs Immature Grans 0.04 10^3/uL (0.0-0.06); HCT 36.7 % (40.0-50.0); HGB 12.0 g/dL (13.5-17.5); Immature Grans % 0.9 %; MCH 30.3 pg (27.0-33.0); MCHC 32.7 % (32.0-36.0); MCV 93 fL (80-95); MPV 8.5 fL (8.0-11.0); Platelet Count 371 10^3/uL (130-400); RBC 3.96 10^6/uL (4.36-5.78); RDW 14.9 % (11.8-14.1); RDW-SD 50.5 fL; WBC 4.41 10^3/uL (4.4-10.8)
[2025-06-30 11:56] LABS: Uric Acid 5.4 mg/dL (3.7-9.2)
[2025-06-30 11:58] LABS: LDH 183 U/L (120-246)
[2025-06-30 11:59] LABS: ALT 59 U/L (10-49); AST 36 U/L (<34); Albumin 4.1 g/dL (3.4-5.0); Alkaline Phosphatase 143 U/L (46-116); Anion Gap 6.4 mmol/L (3-11); BUN 15 mg/dL (9-23); Bilirubin, Total 0.50 mg/dL (0.2-1.2); CO2 31.6 mmol/L (20.0-31.0); Calcium 9.2 mg/dL (8.3-10.6); Chloride 104 mmol/L (98-107); Glucose 74 mg/dL (74-106); Potassium 4.3 mmol/L (3.5-5.1); Sodium 142 mmol/L (136-145); Total Protein 6.8 g/dL (5.7-8.2)
[2025-06-30 12:01] LABS: Ferritin 361 ng/mL (11-307)
[2025-06-30 12:05] LABS: Iron 86 ug/dL (65-175); Total Iron Binding Capacity 324 ug/dL (250-425); Transferrin Sat 27 % (20-55)
[2025-07-01 13:16] LABS: Albumin 61.3 % (55.8-66.1); Albumin g/dL 4.0 g/dL (3.6-5.2); Alpha 1 g/dL 0.40 g/dL (0.15-0.40); Alpha 2 g/dL 0.60 g/dL (0.50-1.00); Beta g/dL 0.70 g/dL (0.60-1.20); Gamma g/dL 0.80 g/dL (0.60-1.60); Total Protein 6.5 g/dL (6.3-8.2)
== END 2025-06-30 11:07 | disposition home or self-care (01) ==
LOC: LBO 11:06
PROVIDERS: PCP Family Medicine; Visit Provider Internal Medicine Hematology & Oncology
DX: D50.0 Iron deficiency anemia secondary to blood loss (chronic) (principal); C85.80 Other specified types of non-Hodgkin lymphoma, unspecified site; D64.9 Anemia, unspecified
CPT/HCPCS: 36415; 80053; 86850; 86900; 86901; 82728; 83540; 83550; 83615; 84165; 84550; 85025

== ENCOUNTER 2025-07-07 08:04 | Outpatient (CLI) | payer BC, SELFPAY ==
[2025-07-07 08:17] LABS: Abs Immature Grans 0.01 10^3/uL (0.0-0.06); HCT 34.1 % (40.0-50.0); HGB 11.4 g/dL (13.5-17.5); Immature Grans % 0.2 %; MCH 30.6 pg (27.0-33.0); MCHC 33.4 % (32.0-36.0); MCV 92 fL (80-95); MPV 9.6 fL (8.0-11.0); Platelet Count 279 10^3/uL (130-400); RBC 3.72 10^6/uL (4.36-5.78); RDW 14.9 % (11.8-14.1); RDW-SD 50.2 fL; WBC 4.22 10^3/uL (4.4-10.8)
[2025-07-07 08:33] LABS: Uric Acid 5.4 mg/dL (3.7-9.2)
[2025-07-07 08:35] LABS: LDH 186 U/L (120-246)
[2025-07-07 08:36] LABS: ALT 36 U/L (10-49); AST 29 U/L (<34); Albumin 4.3 g/dL (3.4-5.0); Alkaline Phosphatase 111 U/L (46-116); Anion Gap 6.6 mmol/L (3-11); BUN 16 mg/dL (9-23); Bilirubin, Total 0.80 mg/dL (0.2-1.2); CO2 30.4 mmol/L (20.0-31.0); Calcium 9.7 mg/dL (8.3-10.6); Chloride 106 mmol/L (98-107); Glucose 84 mg/dL (74-106); Potassium 4.1 mmol/L (3.5-5.1); Sodium 143 mmol/L (136-145); Total Protein 6.9 g/dL (5.7-8.2)
[2025-07-07 08:38] LABS: Ferritin 296 ng/mL (11-307)
[2025-07-07 11:42] LABS: Iron 73 ug/dL (65-175); Total Iron Binding Capacity 336 ug/dL (250-425); Transferrin Sat 22 % (20-55)
[2025-07-08 12:14] LABS: Albumin 64.8 % (55.8-66.1); Albumin g/dL 4.5 g/dL (3.6-5.2); Alpha 1 g/dL 0.30 g/dL (0.15-0.40); Alpha 2 g/dL 0.60 g/dL (0.50-1.00); Beta g/dL 0.70 g/dL (0.60-1.20); Gamma g/dL 0.80 g/dL (0.60-1.60); Total Protein 6.9 g/dL (6.3-8.2)
== END 2025-07-07 08:05 | disposition home or self-care (01) ==
LOC: LBO 08:05
PROVIDERS: Internal Medicine Hematology & Oncology; PCP Family Medicine; Visit Provider Nurse Practitioner Adult Health
DX: C85.80 Other specified types of non-Hodgkin lymphoma, unspecified site (principal); D50.0 Iron deficiency anemia secondary to blood loss (chronic)
CPT/HCPCS: 36415; 80053; 86850; 86900; 86901; 82728; 83540; 83550; 83615; 84165; 84550; 85025

== ENCOUNTER 2025-08-04 08:02 | Outpatient (CLI) | payer BC, SELFPAY ==
[2025-08-04 08:06] LABS: Abs Immature Grans 0.01 10^3/uL (0.0-0.06); HCT 36.8 % (40.0-50.0); HGB 12.3 g/dL (13.5-17.5); Immature Grans % 0.4 %; MCH 31.0 pg (27.0-33.0); MCHC 33.4 % (32.0-36.0); MCV 93 fL (80-95); MPV 9.2 fL (8.0-11.0); Platelet Count 193 10^3/uL (130-400); RBC 3.97 10^6/uL (4.36-5.78); RDW 13.2 % (11.8-14.1); RDW-SD 45.2 fL; WBC 2.53 10^3/uL (4.4-10.8)
[2025-08-04 08:20] LABS: Uric Acid 4.9 mg/dL (3.7-9.2)
[2025-08-04 08:22] LABS: ALT 23 U/L (10-49); AST 27 U/L (<34); Albumin 4.3 g/dL (3.2-5.0); Alkaline Phosphatase 78 U/L (46-116); Anion Gap 5 mmol/L (3-11); BUN 9 mg/dL (9-23); Bilirubin, Total 1.0 mg/dL (0.2-1.2); CO2 31.0 mmol/L (20.0-31.0); Calcium 9.6 mg/dL (8.3-10.6); Chloride 105 mmol/L (98-107); Glucose 93 mg/dL (74-106); LDH 211 U/L (120-246); Potassium 4.0 mmol/L (3.5-5.1); Sodium 141 mmol/L (136-145); Total Protein 6.9 g/dL (5.7-8.2)
[2025-08-04 08:26] LABS: Ferritin 187 ng/mL (11-307)
[2025-08-04 08:59] LABS: Total Iron Binding Capacity 298 ug/dL (250-425)
[2025-08-04 09:00] LABS: Iron 63 ug/dL (65-175); Transferrin Sat 21 % (20-55)
== END 2025-08-04 08:03 | disposition home or self-care (01) ==
LOC: LBO 08:03
PROVIDERS: PCP Family Medicine; Visit Provider Internal Medicine Hematology & Oncology
DX: D50.0 Iron deficiency anemia secondary to blood loss (chronic) (principal); C85.80 Other specified types of non-Hodgkin lymphoma, unspecified site; D64.9 Anemia, unspecified
CPT/HCPCS: 36415; 80053; 86850; 86900; 86901; 82728; 83540; 83550; 83615; 84165; 84550; 85025